=== PATIENT | female | born 1980 | race Caucasian/White ===

== ENCOUNTER 2019-11-27 12:30 | Emergency (ER) | payer MEDICARE, MEDICAID, SELFPAY ==
[2019-11-27 12:47] VITALS: BP 156/82; PULSE 63; RESP 16; TEMP 37.2; O2SAT 98
--- NOTE | 2019-11-27 13:28 | ED.URI ---
HPI - URI/Sore Throat General Chief Complaint: Upper Respiratory Infection Stated Complaint: sore throat/fever/fatigue Time Seen by Provider: 11/27/19 13:00 Source: patient and RN notes reviewed Mode of arrival: ambulatory Limitations: no limitations History of Present Illness HPI Narrative: Patient presents today complaining of 3-day history of scratchiness and redness to the throat with a baby cough. Denies congestion, rhinorrhea, postnasal drip. Denies known fever. She has been taking Sudafed and ibuprofen. Patient was at [facility] this morning for an appointment and states they told her to come in for flu and strep swabs. History of brainstem tumor, chemo and radiation 2 years ago. MD elicited complaint: sore throat Related Data Home Medications Medication Instructions Recorded Confirmed albuterol sulfate [Ventolin HFA] INHALATION 11/27/19 diazepam 11/27/19 furosemide 11/27/19 methylphenidate HCl 11/27/19 metoprolol succinate PO 11/27/19 omeprazole 11/27/19 ondansetron HCl 11/27/19 oxycodone-acetaminophen 11/27/19 sertraline mg 11/27/19 Allergies Allergy/AdvReac Type Severity Reaction Status Date / Time adhesive tape Allergy Mild Verified 08/31/18 11:40 sumatriptan Allergy Mild Unknown Verified 08/31/18 11:40 Review of Systems Review of Systems: Narrative: CONSTITUTIONAL: Denies body aches, fever, chills, or sweats. EYES: Denies visual changes, redness, or discharge. ENT: Denies rhinorrhea, congestion, or otalgia.+ Sore and scratchy throat CARDIOVASCULAR: Denies chest pain, palpitations, or edema. RESPIRATORY: Denies dyspnea. + Mild cough GASTROINTESTINAL: Denies abdominal pain, nausea, vomiting, or diarrhea. GENITOURINARY: Denies dysuria or hematuria. SKIN: Denies rash, itching, or wounds. MUSCULOSKELETAL: Denies back pain, joint pain, or myalgia. NEUROLOGIC: Denies headache, numbness, tingling, or weakness. PSYCH: Denies depression or anxiety. [facility] Past Medical History Medical History (Updated 11/27/19 @ 13:33 by Carrol Graff, [employer], BC) Brainstem tumor Comments At time of signature, I have reviewed and agree with nursing past medical, surgical, social and family history unless otherwise noted. Please see nursing chart for further information. There is no relevant family history pertinent to the presenting complaint Exam Narrative: Exam Narrative: GENERAL: Well-appearing, well-nourished, and in no acute distress. HEAD: Normocephalic, atraumatic. EYES: EOMI. No redness or drainage. Conjunctivae normal. ENT: Mucous membranes pink and moist. Nares clear. No rhinorrhea. TMs normal bilaterally. Throat mildly erythematous and edematous without exudate. Uvula midline. NECK: Normal AROM. Supple. No lymphadenopathy. CHEST: No respiratory distress. Clear to auscultation. HEART: Regular rate and rhythm. No murmur appreciated. Normal peripheral pulses. EXTREMITIES: Normal range of motion. No edema. SKIN: Warm, dry, no rash. NEURO: No focal deficits. Alert and oriented x3. Gait steady. PSYCH: Normal affect. No signs of depression or anxiety. Course Course Emergency Course: Patient's influenza swab and strep swab are negative today. Will provide patient with a paper prescription for amoxicillin to be started on 12/01/2019 if symptoms are not improving. She will be notified by telephone if strep culture is positive. Vital Signs Vital signs: Vital Signs Temperature 99.0 F 11/27/19 12:47 Pulse Rate 63 11/27/19 12:47 Respiratory Rate 16 11/27/19 12:47 Blood Pressure 156/82 H 11/27/19 12:47 Pulse Oximetry 98 11/27/19 12:47 Temperature 99.0 F 11/27/19 12:47 Pulse Rate 63 11/27/19 12:47 Respiratory Rate 16 11/27/19 12:47 Blood Pressure 156/82 H 11/27/19 12:47 Pulse Oximetry 98 11/27/19 12:47 Reviewed. Pt has been instructed to follow up with her PCP regarding her elevated blood pressure today. MDM - URI/Sore Throat Differential
== END 2019-11-27 13:38 | disposition home or self-care (01) ==
PROVIDERS: Emergency Provider Nurse Practitioner; PCP Family Medicine
DX: J02.9 Acute pharyngitis, unspecified (principal); I10 Essential (primary) hypertension; J45.909 Unspecified asthma, uncomplicated; K21.9 Gastro-esophageal reflux disease without esophagitis; F41.9 Anxiety disorder, unspecified; Z85.841 Personal history of malignant neoplasm of brain; Z92.21 Personal history of antineoplastic chemotherapy; Z92.3 Personal history of irradiation
CPT/HCPCS: 87081; 87804; 87880; 99213; G0463

== ENCOUNTER 2020-02-06 16:09 | Emergency (ER) | payer MEDICARE, MEDICAID, SELFPAY ==
--- NOTE | ~2020-02-06 | XR_ITS ---
EXAMINATION: XR foot LT min 3V EXAM DATE: 02/06/2020 16:36 INDICATION: Initial encounter following injury, with pain of the left foot, 2nd and 3rd toes. TECHNIQUE: Left foot dorsoplantar, lateral and oblique projections obtained and reviewed. Comparison is made to prior examination from 01/31/2013. FINDINGS: Left metatarsal bones unremarkable. There are no acute fractures or dislocations identifi ed. There is no subcutaneous gas. The soft tissue is unremarkable. There are no radiopaque foreig n bodies. Tiny posterior calcaneal spur. IMPRESSION: No acute osseous findings. Reviewed, dictated and finalized at location A. IMPRESSION: No acute osseous findings.
--- NOTE | 2020-02-06 16:15 | ED.GENADULT ---
HPI - General Adult General Chief complaint: Extremity Injury, Lower Stated complaint: left foot pain Time Seen by Provider: 02/06/20 16:15 Source: patient Mode of arrival: ambulatory Limitations: no limitations History of Present Illness HPI narrative: 39-year-old female [facility] of left foot pain x2 days. Patient states that 2 days ago she was cleaning out her cabinets and had her cast iron pot some pain sitting on the floor. Patient states she was going to kick 1 and The second toe and said that her second toe but all the way up. Patient states she is having pain at the base of the second and third toe. Patient states she does have decreased sensation to the left side of her foot especially the toe area anyway due to a past brain surgery. Patient states she does take Percocet and 800 mg ibuprofen for pain daily anyway which has helped with her pain. Patient states she has been trying to avoid walking on it and has been keeping it elevated. Related Data Home Medications Medication Instructions Recorded Confirmed albuterol sulfate [Ventolin HFA] 2 inh INHALATION Q4-6H PRN 11/27/19 02/06/20 diazepam 5 mg TID PRN 11/27/19 02/06/20 furosemide 20 mg DAILY PRN 11/27/19 02/06/20 omeprazole 20 mg DAILY 11/27/19 02/06/20 ondansetron HCl 8 mg Q8H PRN 11/27/19 02/06/20 oxycodone-acetaminophen 1 tablet Q4-6H PRN 11/27/19 02/06/20 sertraline 100 mg DAILY 11/27/19 02/06/20 ibuprofen 800 mg TID PRN 02/06/20 02/06/20 levetiracetam 500 mg PO DAILY 02/06/20 02/06/20 metoprolol succinate 100 mg PO DAILY 02/06/20 02/06/20 Allergies Allergy/AdvReac Type Severity Reaction Status Date / Time adhesive tape Allergy Mild Rash Verified 02/06/20 16:14 sumatriptan Allergy Mild Unknown Verified 02/06/20 16:14 Review of Systems Review of Systems: Narrative: CONSTITUTIONAL: Denies fever, chills, or sweats. EYES: Denies visual changes, redness, or discharge. ENT: Denies rhinorrhea, congestion, sore throat, or otalgia. CARDIOVASCULAR: Denies chest pain, palpitations, or edema. RESPIRATORY: Denies cough or dyspnea. GASTROINTESTINAL: Denies abdominal pain, nausea, vomiting, or diarrhea. GENITOURINARY: Denies dysuria or hematuria. SKIN: Denies rash or itching. MUSCULOSKELETAL: Denies back pain, joint pain, or myalgia. Positive left foot pain x2 days NEUROLOGIC: Denies headache, numbness, or weakness. PSYCHIATRIC: Denies anxiety or depression. [facility] Past Medical History Medical History (Updated 02/06/20 @ 16:59 by PEPE Curtis) Anxiety Asthma Brainstem tumor Depression Hypercholesterolemia Hypertension Seizures Surgical History Surgical History (Updated 02/06/20 @ 16:17 by PEPE Curtis) History of cholecystectomy History of tonsillectomy Social History Social History Gender identity (if verbalized by the patient): Female Comments At the time of my signature I agree with nursing past medical history, surgical, social, and family history. There is no relevant family history pertinent to the presenting complaint. Exam Narrative: Exam Narrative: GENERAL: Well-appearing, well-nourished, and in no acute distress. HEAD: Normocephalic, atraumatic. EYES: PERRLA and EOMI. ENT: Nares clear, no rhinorrhea or epistaxis. Mucous membranes moist. NECK: Supple. No lymphadenopathy CHEST: Clear to auscultation. No respiratory distress. HEART: Regular rate and rhythm. No murmur heard. Normal peripheral pulses. ABDOMEN: Soft, nontender, nondistended, normal active bowel sounds. EXTREMITIES: Patient able to bear weight and ambulate but has increased pain to the second and third digit on the left foot. No obvious surface trauma, very slight ecchymosis to the base of the second digit on the left toe, no erythema, lesions, ulcers or break in skin integrity. The L foot is without obvious asymmetry or deformity when compared to the R foot. No bony s
[2020-02-06 16:21] VITALS: BP 146/80; PULSE 68; RESP 16; TEMP 37.2; O2SAT 99
== END 2020-02-06 17:00 | disposition home or self-care (01) ==
PROVIDERS: Emergency Provider Nurse Practitioner Family; PCP Family Medicine
DX: S90.32XA Contusion of left foot, initial encounter (principal); I10 Essential (primary) hypertension; K21.9 Gastro-esophageal reflux disease without esophagitis; W22.8XXA Striking against or struck by other objects, initial encounter; Z85.841 Personal history of malignant neoplasm of brain
CPT/HCPCS: 73630; 99213; G0463

== ENCOUNTER 2022-12-25 16:47 | Emergency (ER) | payer OTHER, SELFPAY ==
--- NOTE | ~2022-12-25 | CT_ITS ---
EXAMINATION: CT facial bones w con DATE: 12/25/2022 21:00 INDICATION: Right facial swelling TECHNIQUE: Computed tomography (CT) of the facial bones and maxillofacial region was performed with 7 5 cc of Omnipaque 350 intravenous contrast. The dose-length product (DLP) was 625.06 mGy-cm. Automate d exposure control and iterative reconstruction technique were employed. COMPARISON: 06/30/2011 FINDINGS: There is moderate soft tissue swelling lateral to the body of the right mandible. No focal abscess is identified. Multiple dental caries are noted as are multiple periapical abscesses. There i s mild submandibular lymphadenopathy on the right, likely reactive. The airway is patent. Changes of right occipital craniotomy are noted. There is mild mucosal thickening of the paranasal sinuses. IMPRESSION: 1. Cellulitis lateral to the body of the right mandible without focal abscess. Reviewed, dictated and finalized at location F.
[2022-12-25 17:16] VITALS: BP 152/90; PULSE 80; RESP 16; TEMP 37.2; O2SAT 96
[2022-12-25 17:41] LABS: Basophils Absolute Auto 0.1 K/mm3 (0.0-0.1); Basophils Percent Auto 0.4 % (0.2-1.2); Eosinophils Absolute Auto 0.2 K/mm3 (0-0.3); Eosinophils Percent Auto 1.2 % (0-4.4); Hematocrit 48.5 % (37.0-47.0); Hemoglobin 16.3 g/dL (12.0-15.0); Immature Granulocyte Absolute 0.06 K/mm3 (0.00-0.031); Immature Granulocyte Percent A 0.4 % (0-0.5); Lymphocytes Absolute Auto 2.29 K/mm3 (0.9-3.2); Lymphocytes Percent Auto 13.4 % (18.3-44.2); Mean Corpuscular HGB Conc 33.6 g/dl (32-36); Mean Corpuscular Hemoglobin 31.4 pg (26-34); Mean Corpuscular Volume 93.4 fl (80-100); Mean Platelet Volume 9.5 fl (7.4-10.4); Monocytes Absolute Auto 0.9 K/mm3 (0.1-0.6); Monocytes Percent Auto 5.1 % (2.6-8.5); Neutrophils Absolute Auto 13.6 K/mm3 (1.3-6.7); Neutrophils Percent Auto 79.5 % (45.5-73.1); Platelet Count Result 311 k/mm3 (150-375); Red Blood Count 5.19 M/mm3 (4.2-5.4); Red Cell Distribution Width 13.6 % (11.5-14.5); White Blood Count 17.1 K/mm3 (4.5-10.0)
[2022-12-25 17:51] LABS: Alanine Aminotransferase 21 U/L (6-35); Albumin Level 4.5 g/dL (3.5-5.1); Alkaline Phosphatase 76 U/L (38-126); Anion Gap 9 mmol/L (8-16); Aspartate Amino Transferase 22 U/L (14-36); Bilirubin,Total 0.6 mg/dL (0.2-1.3); Blood Urea Nitrogen 11 mg/dL (7-17); Calcium 9.2 mg/dL (8.4-10.2); Carbon Dioxide 25 mmol/L (22-30); Chloride 105 mmol/L (98-107); Estimated CRCL calculation 136 ml/min; Estimated Glomerular Filt Rate > 60; Glucose 122 mg/dL (65-110); Potassium 4.1 mmol/L (3.4-5.0); Sodium 139 mmol/L (137-145)
[2022-12-25] MEDS: SODIUM CHLORIDE 0.9% IV 1,000 ML 999 ML IV CONT (20:32)
[2022-12-25] MEDS: PROCHLORPERAZINE EDISYLATE 10 MG/2 ML VIAL IV PUSH (20:32)
[2022-12-25] MEDS: MORPHINE SULFATE (*CRX) 4 MG/ML INJ IV PUSH (20:33)
[2022-12-25 21:00] LABS: Lactic Acid Reflex 1.2 mmol/L (0.7-2.0)
--- NOTE | 2022-12-25 21:07 | ED.GENADULT ---
HPI - General Adult General Chief complaint: Dental/Oral Stated complaint: SWOLLEN FACE RIGHT Time Seen by Provider: 12/25/22 19:45 History of Present Illness HPI narrative: Patient 42-year-old female who presents the emergency department with chief complaint of facial swelling. Patient reports that she has history of a brain tumor and has had radiation therapy done at [facility]. Patient reports that she noticed a small red bump on her chin and also has several teeth that have degraded. The patient reports she is scheduled to see an oral surgeon in the near future but reports that her face started swelling and has become exquisitely painful. Patient states she is worried as she has had degree she will have her teeth and mandible after receiving radiation therapy. Related Data Home Medications Medication Instructions Recorded Confirmed albuterol sulfate 90 mcg/actuation 2 inh inhalation Q4-6H PRN 11/27/19 02/06/20 aerosol inhaler (Ventolin HFA) Shortness Of Breath diazepam 5 mg tablet 5 mg TID PRN Anxiety 11/27/19 02/06/20 furosemide 20 mg tablet 20 mg DAILY PRN Weight Gain 11/27/19 02/06/20 omeprazole 20 mg capsule,delayed 20 mg DAILY 11/27/19 02/06/20 release ondansetron HCl 8 mg tablet 8 mg Q8H PRN Nausea 11/27/19 02/06/20 oxycodone-acetaminophen 10 mg-325 1 tablet Q4-6H PRN Pain 11/27/19 02/06/20 mg tablet sertraline 100 mg tablet 100 mg DAILY 11/27/19 02/06/20 ibuprofen 800 mg tablet 800 mg TID PRN Pain 02/06/20 02/06/20 levetiracetam 500 mg tablet 500 mg PO DAILY 02/06/20 02/06/20 metoprolol succinate 100 mg 100 mg PO DAILY 02/06/20 02/06/20 tablet,extended release 24 hr Allergies Allergy/AdvReac Type Severity Reaction Status Date / Time adhesive tape Allergy Mild Rash Verified 02/06/20 16:14 sumatriptan Allergy Mild Unknown Verified 02/06/20 16:14 Review of Systems Review of Systems: A 10 system review of systems was completed on the patient and is negative except for what is stated in the HPI. Nursing and ancillary documentation was reviewed. [facility] Past Medical History Medical History Anxiety Asthma Brainstem tumor Depression Hypercholesterolemia Hypertension Seizures Surgical History Surgical History History of cholecystectomy History of tonsillectomy Social History Social History Gender identity (if verbalized by the patient): Female Exam Narrative: GENERAL: Well-appearing, well-nourished, and in no acute distress. HEAD: Normocephalic, atraumatic. EYES: PERRLA and EOMI. ENT: Nares clear, no rhinorrhea or epistaxis. Mucous membranes moist. There are several carious teeth there is tenderness in the buccal mucosa of the right cheek and mandible external exam of the face there is erythema and tenderness of the right mandible area there is no crepitance there is no subcu emphysema there is no bronzing of the neck NECK: Supple. CHEST: Clear to auscultation. No respiratory distress. HEART: Regular rate and rhythm. No murmur heard. Normal peripheral pulses. ABDOMEN: Soft, nontender, nondistended, normal active bowel sounds. EXTREMITIES: Normal range of motion. No edema. SKIN: Warm, dry, no rash. NEURO: No focal deficits. Alert and oriented x3. PSYCH: Normal mood and affect. Course Vital Signs Vital signs: Vital Signs Temperature 37.2 C 12/25/22 17:16 Pulse Rate 80 12/25/22 17:16 Respiratory Rate 16 12/25/22 17:16 Blood Pressure 152/90 H 12/25/22 17:16 Pulse Oximetry 96 12/25/22 17:16 Oxygen Delivery Room Air 12/25/22 17:16 Temperature 37.2 C 12/25/22 17:16 Pulse Rate 80 12/25/22 17:16 Respiratory Rate 16 12/25/22 17:16 Blood Pressure 152/90 H 12/25/22 17:16 Pulse Oximetry 96 12/25/22 17:16 Oxygen Delivery Room Air 12/25/22 17:16 Medical Decision Ma
[2022-12-25] MEDS: AMPICILLIN SULB 3 GM/NS 100 ML 3 GM/100 ML VIAL IVPB (21:16)
== END 2022-12-25 22:34 | disposition home or self-care (01) ==
PROVIDERS: Emergency Medicine; Emergency Provider Emergency Medicine; PCP Family Medicine
DX: L03.211 Cellulitis of face (principal); K02.9 Dental caries, unspecified; J45.909 Unspecified asthma, uncomplicated; E78.00 Pure hypercholesterolemia, unspecified; I10 Essential (primary) hypertension; F41.9 Anxiety disorder, unspecified; F32.A Depression, unspecified
CPT/HCPCS: 36415; 70487; 80053; 83605; 85025; 87040; 87147; 87181; 87186; 96361; 96365; 96375; 99284; J0295; J0780; J2270; J7030; Q9967

== ENCOUNTER 2024-01-04 11:27 | Outpatient (CLI) | payer MEDICARE, MEDICAID, SELFPAY ==
--- NOTE | 2024-01-04 11:44 | ECG_ITS ---
SEE SCANNED COPY FOR CONFIRMED REPORT MTDD
[2024-01-04 12:19] LABS: Alanine Aminotransferase 19 U/L (6-35); Albumin Level 4.3 g/dL (3.5-5.1); Alkaline Phosphatase 69 U/L (38-126); Anion Gap 4 mmol/L (4-12); Aspartate Amino Transferase 22 U/L (14-36); Bilirubin,Total 0.4 mg/dL (0.2-1.3); Blood Urea Nitrogen 11 mg/dL (7-17); Calcium 9.1 mg/dL (8.4-10.2); Carbon Dioxide 26 mmol/L (22-30); Chloride 106 mmol/L (98-107); Estimated Glomerular Filt Rate > 60; Glucose 122 mg/dL (65-110); Potassium 4.2 mmol/L (3.4-5.0); Sodium 136 mmol/L (137-145)
== END 2024-01-04 11:28 | disposition home or self-care (01) ==
LOC: ANHSURGERY 11:32
PROVIDERS: PCP Family Medicine; Visit Provider Obstetrics & Gynecology
DX: N92.0 Excessive and frequent menstruation with regular cycle (principal); I10 Essential (primary) hypertension; Z01.818 Encounter for other preprocedural examination
CPT/HCPCS: 36415; 80053; 86850; 86900; 86901; 93005

== ENCOUNTER 2024-01-11 00:23 | Day surgery (SDC) | payer MEDICARE, MEDICAID, SELFPAY ==
[2024-01-04 10:57] VITALS: BMI 45.8
--- NOTE | 2024-01-04 11:08 | PC.NURSE ---
Report to the Outpatient Waiting Room, entrance under the green pavilion located off [facility], at time 6:00 on date 01/11/24. Planned Procedure Time: 7:30. Time changes happen often and if your time is changed the preop area will call you the afternoon before. - You and your visitor will be asked to self-screen and do not enter if you have any COVID symptoms. - A mask is optional within the hospital at this time. Patients may have clear liquids (water, carbonated beverages, clear teas, apple juice) until 3 hours prior to surgery (4:30) with a maximum of 20 ounces. - No food from midnight until time of surgery Take the following medications with a SIP of water the morning of surgery: METOPROLOL, PAIN PILL IF NEEDED, BRING INHALER DO NOT STOP ANY OF YOUR OTHER PRESCRIPTION MEDICATIONS PRIOR TO SURGERY ?EXCEPT THE FOLLOWING Medications to discontinue per physician: N/A Date to take last dose: N/A Please no make-up, nail pashto, hairspray, perfume, deodorant, or body powder the day of surgery. No jewelry (including any body piercings) or valuables the day of surgery, leave them at home. Please take a shower or bath the night before, or the morning of, surgery with an antibacterial soap. Wear comfortable, loose fitting clothing. - Jewelry must be removed prior to entering the operating room. Rings and piercings that are not removed may be cut off. - The hospital will not accept responsibility for valuables. - Please leave all valuables, including medications, at home the day of surgery. If you are going home after surgery, a licensed day haul or farm charter bus driver must drive you home. - NO public transportation without another adult if you receive anesthesia. - We recommend that an adult stay with you for 24 hours following discharge. - We also recommend that you do not drive, make important decision, drink alcoholic beverages, or take any drugs that were not prescribed by your health care provider for at least 24 hours after your discharge time. Follow any additional instructions given to you from your surgeon. If you or anyone in your household have experienced Covid symptoms in the past week, please notify your surgeon or the nurse liaison at the phone number below for possible testing. Telephone instructions given to PT Tata SANCHEZ and asked if any additional questions and then verbalized understanding. Patient advised to call surgeon office or pre surgery nurse liaison [phone] if any additional questions.
[2024-01-11] VITALS (13 sets, daily range): BP systolic 118–170; BP diastolic 73–88; PULSE 71–91; RESP 12–18; TEMP 36.1–36.9; O2SAT 92–97; BMI 44.4
--- NOTE | 2024-01-11 07:10 | WPDANESEPPF ---
Anes - Initial Pre Proc Eval Procedure: Operation Date: 01/11/24 07:30 Proposed Procedures p Total Laparoscopic Hysterectomy with Bilateral Salpingectomy - Solomon Shah MD Date/Time: 01/11/24 07:10 Surgeon: Solomon Shah MD Pre Op Diagnosis: Menorrhagia Patient Data Age: 43 Gender: F Height: 1.68 m Weight: 128.85 kg Allergies Allergy/AdvReac Type Severity Reaction Status Date / Time adhesive tape Allergy Mild Rash Verified 01/04/24 10:53 sumatriptan Allergy Mild Unknown Verified 01/04/24 10:53 Home Medications Medication Instructions Recorded Confirmed Type albuterol sulfate 90 mcg/actuation 2 inh inhalation Q4-6H PRN 11/27/19 01/04/24 History aerosol inhaler (Ventolin HFA) Shortness Of Breath diazepam 5 mg tablet 10 mg PO HS 11/27/19 01/04/24 History furosemide 20 mg tablet 40 mg PO DAILY 11/27/19 01/04/24 History omeprazole 20 mg capsule,delayed 20 mg PO DAILY 11/27/19 01/04/24 History release ondansetron HCl 8 mg tablet 8 mg PO Q8H PRN Nausea 11/27/19 01/04/24 History sertraline 100 mg tablet 100 mg PO HS 11/27/19 01/04/24 History levetiracetam 500 mg tablet 3,000 mg PO HS 02/06/20 01/04/24 History metoprolol succinate 100 mg 100 mg PO HS 02/06/20 01/04/24 History tablet,extended release 24 hr atorvastatin 20 mg tablet 20 mg PO DAILY 01/04/24 01/04/24 History metoprolol succinate 200 mg 200 mg PO DAILY 01/04/24 01/04/24 History tablet,extended release 24 hr naloxegol 25 mg tablet (Movantik) 25 mg PO DAILY 01/04/24 01/04/24 History oxycodone-acetaminophen 10 mg-325 1 tablet PO Q4-6H PRN Pain 01/04/24 01/04/24 History mg tablet promethazine 50 mg tablet 20 mg PO Q6H PRN Nausea 01/04/24 01/04/24 History Patient hx anesthesia problems: none Family hx anesthesia problems: none Results Review: All pre-operative results and documents have been reviewed as part of the pre-operative evaluation. [facility] Past Medical History Medical History Anxiety Asthma Brainstem tumor Depression Hypercholesterolemia Hypertension Seizures Surgical History Surgical History History of cholecystectomy History of tonsillectomy Social History Social History Smoking packs per day: 1 Smoking cigarettes per day: 20.0 Years smoked: 27 Smoking pack-years: 27.00 Smoking status: Current every day smoker Tobacco type: cigarettes Substance use: current Substance use type: marijuana Living arrangements: with family Additional living arrangements comments: SON Gender identity (if verbalized by the patient): Female Spiritual care concerns: No Anes - Eval Final PreProcedure Day of Procedure 01/11/24 07:10 Patient weight: morbidly obese Heart: regular rate and rhythm Lungs: clear to auscultation Airway: Mallampati scale class III Neurological: alert and oriented Last oral intake: >/= 8 hours ASA classification: IV Emergent: no Anesthetic plan: proceed Anesthesia type and monitoring: general ETT and standard monitoring Results Review: All pre-operative results and documents have been reviewed as part of the pre-operative evaluation. Informed Consent: The patient's anesthetic plan and its attendant risks and benefits were discussed with the patient/family/POA. Questions were solicited and answers provided to the satisfaction of the patient/family/POA.
--- NOTE | 2024-01-11 07:13 | WPDHPUPDATE1 ---
History and Physical Update Update Date/Time: 01/11/24 07:13 History and Physical has been reviewed, including an updated exam of the patient. There are NO changes in the patient's condition. Risks, benefits, and alternatives have been discussed and questions answered. Patient agrees to proceed with procedure.
[2024-01-11] MEDS: LACTATED RINGERS 1,000 ML 30 ML IV CONT ×2 (07:15→10:58)
[2024-01-11] MEDS: KETOROLAC 15 MG/ML VIAL (*BKC) IV PUSH (07:15)
[2024-01-11] MEDS: ACETAMINOPHEN 500 MG TABLET 1000 MG PO (07:15)
[2024-01-11] MEDS: ceFAZolin SODIUM 1 GM VIAL (07:34)
[2024-01-11] MEDS: ceFAZolin 3 GM/D5W 100 ML 100 ML IVPB (07:48)
--- NOTE | 2024-01-11 11:03 | W.PM.PROC2 ---
Procedure Note - Detailed Date of Procedure 01/11/24 Pre-op Diagnosis Menorrhagia Post-op Diagnosis Same Procedure Performed Total laparoscopic hysterectomy. Surgeon Solomon Shah MD Anesthesia General Description of Procedure This patient was taken to the operating room. She was prepped and draped in the dorsal lithotomy position after induction of general anesthesia. The uterine manipulator and Tania cup were placed. This was done with a speculum and tenaculum. The speculum was placed. The cervix was grasped with a tenaculum. The stay sutures were placed at 3 and 9:00 a.m.. The stay sutures of 0 Vicryl were brought through the appropriately sized Tania cup. The tip of the SOTO manipulator was placed in the intrauterine cavity. The cup was slid into place around the cervix and into the fornices. It was locked into place. The sutures were then wrapped around the handle and tied under tension. A 5 mm skin incision was made in the left upper quadrant the abdomen. A 5 mm trocar was inserted into the intrauterine cavity under direct visualization of the scope. Pneumoperitoneum was achieved. A left lower quadrant 11 mm incision was made with scalpel. An 11 mm trocar was inserted into the anterior abdominal cavity under direct visualization the scope. A 5 mm infraumbilical incision was made with a scalpel and a 5 mm trocar was inserted the intra-abdominal cavity under direct visualization of the scope. Bilateral ureteral lysis was performed. This was done from the pelvic brim down to the uterine artery. This was done with careful dissection using sharp and blunt dissection. The fallopian tubes were removed bilaterally. The mesosalpinx around the fallopian tubes were cauterized transected with LigaSure cautery. This was done in a bilateral fashion from the ovary to the uterine cornua. The fallopian tube was transected at the uterine cornu and amputated bilaterally. The tube was taken out the left lower quadrant trocar site. In a stepwise fashion along the lateral aspects of the uterus the round ligament and broad ligaments were cauterized transected down to the level of the uterine arteries. A bladder flap was created in the bladder was moved distally to the end of the cervix and over the Tania cup. The bilateral uterine arteries were cauterized and transected. Colpotomy was then performed. In a circumferential fashion the vagina was transected using unipolar cautery. The incision was made down on the Tania cup. when the colpotomy was completed, the uterus and cervix were taken out through the vagina. A pneumo occluder was placed in the vagina. The vaginal cuff was closed with a 0 V lock suture in a running fashion. The pelvis was irrigated with copious amounts antibiotic irrigation. The ureters were again examined and found to be intact and flowing freely under the uterine arteries into the bladder. The bladder was intact. It was examined directly. Cystoscopy was performed after administration of methylene blue. The cystoscope was inserted. Bladder was distended with fluid. The ureteric meatus was observed bilaterally. Fluid was not seen to egress from the left ureter. The vaginal cuff suture was revised. The left lateral aspect of the suture was removed and a new suture was placed incorporating the original suture. This suture was strictly of the vagina no surrounding tissue. Blue fluid was Then seen to egress bilaterally from the ureter meatus.. The bladder was drained and the cystoscope was withdrawn. For consult removed view skin was closed was septic and 4 Monocryl. Skin was covered with The vagina was irrigated with Betadine solution after removal of the Pneumo occluder. The patient was taken to recovery room. She was stable condition. Sponge lap and needle counts were correct x2. Drains Yes Packing No Pathology Yes Complications No immediate complications Condition Stable Disposition Floor
--- NOTE | 2024-01-11 12:00 | PC.NURSE ---
This patient, Bruna Caro, was received from PACU on 01/11/24 at 1200. Patient/family oriented to unit policies and routines.
[2024-01-11] MEDS: ONDANSETRON INJ 4 MG/2 ML VIAL IV PUSH ×2 (12:22→18:31)
[2024-01-11] MEDS: DEXTROSE 5%/0.45% SOD CHL 1,000 ML 125 ML IV CONT (12:23)
[2024-01-11] MEDS: FUROSEMIDE 40 MG TABLET PO (13:35)
[2024-01-11] MEDS: SIMETHICONE 80 MG TAB.CHEW PO ×2 (13:35→16:51)
[2024-01-11] MEDS: oxyCODONE/ACETAMINOPHEN (*CRX) 10-325 MG TABLET 1 TAB PO ×2 (13:36→19:03)
[2024-01-11] MEDS: NICOTINE (*PBKC) 14 MG PATCH 1 PATCH TRANSDERM (14:55)
[2024-01-11] MEDS: METOPROLOL SUCCINATE EXT REL 100 MG TABCR PO (16:45)
[2024-01-11] MEDS: IBUPROFEN 600 MG TABLET PO (16:52)
--- NOTE | 2024-01-11 20:30 | PC.NURSE ---
2030- Called to room for assistance at this time, upon entering room patient standing in doorway requesting a wheelchair. I asked the patient why a wheelchair was needed and what I could do to assist her at this time. Patient replied that she is a pack a day smoker and hasn't been able to smoke today and just received some bad news and feels like she needs to go outside to smoke. I requested for the patient to sit down so we could discuss a plan of care for her at this time. Patient agreed to sit and take some deep breaths to relax and calm. I reminded patient that she has a nicotine patch on at this time and that she cannot leave the building with her IV in place. Patient stated I noticed the fire alarms and thought about smoking out the window but didn't want to sneak I reminded patient at this time that there can be no smoking inside the hospital. I offered the patient some gum to chew as well as a snack to take her mind off things. Evening meds including Diazepam and Zoloft due at 2100 and discussed with patient that I will bring those in at that time. Patient agreed to get back into bed and attempt to watch television and rest and that she believes her nighttime medications will help.
[2024-01-11] MEDS: SERTRALINE HCL 50 MG TABLET 100 MG PO (21:33)
[2024-01-11] MEDS: diazePAM (*CRX) 5 MG TABLET 10 MG PO (21:33)
[2024-01-11] MEDS: levETIRAcetam 500 MG TABLET 1500 MG PO (21:33)
--- NOTE | 2024-01-11 21:33 | PC.NURSE ---
2132- Evening meds given, see MAR. Patient is in bed relaxed and resting. Educated patient on need to call out for assistance when amulating to the bathroom due to patient being on seizure precautions and taking fall risk alert medications. Patient verbalized understanding.
--- NOTE | 2024-01-12 00:23 | PC.NURSE ---
2300- Hallway outside patients room smelled strongly of smoke. Entered room and asked patient if she had been smoking and reminded that she can't smoke in the hospital due to safety and fire hazard. Patient stated that she did have a cigarette out but that she did not light it. Overwhelming smoke smell present in the room. Security called by charge nurse at this time. Light turned on and cigarette in water bottle found at bedside that had been lit. Patient denies lighting cigarette again to staff. Security talks with patient to further explain that smoking is prohibited in the hospital. Patient verbalizes understanding.
[2024-01-12 00:45] VITALS: BP 150/69; PULSE 73; RESP 18; TEMP 37.1; O2SAT 94
[2024-01-12] MEDS: oxyCODONE/ACETAMINOPHEN (*CRX) 10-325 MG TABLET 1 TAB PO ×2 (00:47→08:09)
[2024-01-12] MEDS: ONDANSETRON INJ 4 MG/2 ML VIAL IV PUSH ×2 (00:47→08:10)
[2024-01-12 05:30] VITALS: BP 142/68; PULSE 75; RESP 18; TEMP 36.6; O2SAT 97
[2024-01-12] MEDS: SIMETHICONE 80 MG TAB.CHEW PO (08:08)
[2024-01-12] MEDS: ENOXAPARIN 40 MG/0.4 ML SYRINGE SUB-Q (08:08)
[2024-01-12] MEDS: levETIRAcetam 500 MG TABLET 1500 MG PO (08:08)
[2024-01-12] MEDS: ATORVASTATIN 20 MG TABLET PO (08:09)
[2024-01-12] MEDS: FUROSEMIDE 40 MG TABLET PO (08:09)
[2024-01-12] MEDS: PANTOPRAZOLE 40 MG TABLET PO (08:09)
[2024-01-12 08:10] VITALS: PULSE 76
[2024-01-12] MEDS: METOPROLOL SUCCINATE EXT REL 100 MG TABCR 200 MG PO (08:10)
[2024-01-12 08:34] VITALS: BP 152/79; PULSE 76; RESP 16; TEMP 36.4; O2SAT 98
--- NOTE | 2024-01-12 09:13 | WPDANESPN ---
Anes - Prog Note Post-Op Date/Time: 01/12/24 09:13 Cardiovascular status: normal Respiratory status: normal Airway patency: baseline Mental status: baseline Post-Op hydration status: normal Vital Signs: Last Vital Signs Temp 36.4 C 01/12/24 08:34 Pulse 76 01/12/24 08:34 Resp 16 01/12/24 08:34 BP 152/79 H 01/12/24 08:34 Pulse Ox 98 01/12/24 08:34 O2 Del Method Room Air 01/12/24 08:34 O2 Flow Rate 2 01/11/24 13:30 Pain Score (VAS): 0 I/O: Intake & Output 01/11/24 01/12/24 01/12/24 23:59 07:59 15:59 Intake Total 1650 240 Output Total 1150 1000 Balance 500 -1000 240 Post-procedural complaints: none Patient Feedback: Patient satisfied with anesthetic care.
--- NOTE | 2024-01-12 10:21 | PM.GYNPNOP ---
[employer] - A/P Postoperative Procedures: Procedures Operation Date: 01/11/24 07:30 Actual Procedure Side Surgeon p Total Laparoscopic Hysterectomy with Bilateral Salpingectomy with cystoscopy Bilateral Solomon Shah MD Postoperative day: 1 Postoperative status: doing well Postoperative plan: see orders Time Spent With Patient Time: Total time spent is greater than 50% in coordination of care (as documented) at patient's floor/unit and/or counseling patient: Time with patient: less than 15 minutes [employer]- PN:Subj Post-Op Subjective Date/time seen: 01/12/24 10:21 Subjective: patient reports feeling better, patient has no complaints and pain is well controlled Exam Const: General: healthy appearing, comfortable and no acute distress Resp: Auscultation: clear to auscultation bilaterally, no rales, no rhonchi and no wheezes Cardio: Rate: regular rate Heart sounds: no click, no murmurs and no rubs GI: Inspection: non-distended Auscultation: normal bowel sounds Extrem: General: normal to inspection, no pedal edema and no calf tenderness [employer] - PN: Obj Data Vital Signs Vital Signs: Vital Signs - 24 hr 01/11/24 10:58 01/11/24 11:10 01/11/24 11:25 Temperature 97.2 F L Pulse Rate 83 80 75 Respiratory Rate 12 16 14 Blood Pressure 145/78 H 151/85 H 153/87 H Pulse Oximetry 94 95 92 Oxygen Delivery Simple Face Mask Simple Face Mask Room Air Oxygen Flow Rate 8 8 01/11/24 11:40 01/11/24 11:52 01/11/24 12:10 Temperature 97.5 F L Pulse Rate 74 72 71 Respiratory Rate 16 18 16 Blood Pressure 154/84 H 159/88 H 149/74 H Pulse Oximetry 93 95 92 Oxygen Delivery Nasal Cannula Nasal Cannula Oxygen Flow Rate 2 2 01/11/24 13:30 01/11/24 13:30 01/11/24 12:10 Temperature Pulse Rate Respiratory Rate Blood Pressure Pulse Oximetry 94 94 92 Oxygen Delivery Nasal Cannula Nasal Cannula Oxygen Flow Rate 2 2 01/11/24 16:45 01/11/24 16:40 01/11/24 19:21 Temperature 97.0 F L Pulse Rate 76 75 Respiratory Rate 16 Blood Pressure 158/73 H 170/79 H Pulse Oximetry 96 Oxygen Delivery Oxygen Flow Rate 01/11/24 20:00 01/11/24 19:03 01/11/24 20:00 Temperature 98.2 F Pulse Rate 91 80 Respiratory Rate 18 Blood Pressure 148/75 H 170/79 H 148/75 H Pulse Oximetry 95 Oxygen Delivery Oxygen Flow Rate 01/12/24 00:45 01/12/24 05:30 01/12/24 08:10 Temperature 98.7 F 98 F Pulse Rate 73 75 76 Respiratory Rate 18 18 Blood Pressure 150/69 H 142/68 H Pulse Oximetry 94 97 Oxygen Delivery Oxygen Flow Rate 01/12/24 08:34 01/12/24 08:34 Temperature 97.6 F Pulse Rate 76 Respiratory Rate 16 Blood Pressure 152/79 H Pulse Oximetry 98 Oxygen Delivery Room Air Oxygen Flow Rate Intake/Output Intake/Output: Intake & Output 01/09/24 01/10/24 01/11/24 01/12/24 23:59 23:59 23:59 23:59 Intake Total 1750 240 Output Total 1200 1000 Balance 550 -760 Meds/Results Medications: Active Medications Generic Name Dose Route Start Last Admin Trade Name Freq PRN Reason Stop Dose Admin Albuterol 2 puff 01/11/24 11:53 Albuterol Sulfate (*Sp) Aerosol 1 Puff INHALATION Q4-6H PRN Shortness Of Breath Atorvastatin Calcium 20 mg 01/12/24 09:00 01/12/24 08:09 Atorvastatin 20 Mg Tablet PO 20 mg DAILY BRISEYDA Administration Diazepam 10 mg 01/11/24 21:00 01/11/24 21:33 Diazepam (*Crx) 5 Mg Tablet PO 10 mg HS BRISEYDA Administration Enoxaparin Sodium 40 mg 01/12/24 09:00 01/12/24 08:08 Enoxaparin 40 Mg/0.4 Ml Syringe SUB-Q 40 mg DAILY BRISEYDA Administration Furosemide 40 mg 01/11/24 12:05 01/12/24 08:09 Furosemide 40 Mg Tablet PO 40 mg DAILY BRISEYDA Administration Dextrose/Sodium Chloride 1,000 mls @ 125 mls/hr 01/11/24 11:53 01/11/24 22:14 Dextrose 5% Sodium Chloride 0.45% IV CONT Not Given .Q8H BRISEYDA Ibuprofen 600 mg 01/11/24 11:53 01/11/24 16:52 Ibuprofen 600 Mg Tablet PO 600 mg Q6H PRN
== END 2024-01-12 10:35 | disposition home or self-care (01) ==
LOC: ANHSURGERY 06:21 → ANHOB2 11:56
PROVIDERS: PCP Family Medicine; Visit Provider Obstetrics & Gynecology
PROC: 0UT9FZZ Resection of Uterus, Via Natural or Artificial Opening With Percutaneous Endoscopic Assistance (ICD-10-PCS; CPT 58571; principal; 2024-01-11 07:30)
DX: N92.0 Excessive and frequent menstruation with regular cycle (principal); N87.9 Dysplasia of cervix uteri, unspecified; N83.8 Other noninflammatory disorders of ovary, fallopian tube and broad ligament; Z79.51 Long term (current) use of inhaled steroids; I10 Essential (primary) hypertension; G40.909 Epilepsy, unspecified, not intractable, without status epilepticus; E78.00 Pure hypercholesterolemia, unspecified; J45.909 Unspecified asthma, uncomplicated; F41.9 Anxiety disorder, unspecified; F32.A Depression, unspecified; F17.210 Nicotine dependence, cigarettes, uncomplicated; E66.01 Morbid (severe) obesity due to excess calories; F12.90 Cannabis use, unspecified, uncomplicated; Z68.41 Body mass index [BMI] 40.0-44.9, adult
CPT/HCPCS: 58571; 88307; 99199; A9270; J0330; J0690; J1100; J1170; J1596; J1650; J1885; J2250; J2405; J2704; J3010; J7030; J7120; Q9968

== ENCOUNTER 2024-08-31 12:49 | Inpatient (IN) | payer MEDICARE, MEDICAID, SELFPAY ==
[2024-08-31] VITALS (12 sets, daily range): BP systolic 153–182; BP diastolic 84–94; PULSE 78–102; RESP 18–22; TEMP 36.1–36.9; O2SAT 87–96; BMI 44.4
--- NOTE | ~2024-08-31 | CT_ITS ---
EXAMINATION: CTA chest PE protocol DATE: 08/31/2024 23:10 INDICATION: Acute hypoxia TECHNIQUE: Computed tomography angiography (CTA) of the chest was performed with 100 mL Omnipaque-350 intravenous contrast timed to evaluate the pulmonary arteries. Coronal maximum intensity projection 3D-reconstructions were created by the technologist. Automated exposure control and iterative reconst ruction technique were employed. The dose-length product was 1099.04 mGy-cm. COMPARISON: CT abdomen and pelvis 04/05/2017 FINDINGS: There are scattered groundglass opacities in all lobes. There are 7 mm, 6 mm, and 4 mm nodu les in right lower lobe. No pleural effusion. The heart size is normal. No pericardial effusion. Ther e is no pulmonary embolus. There is mild right hilar lymphadenopathy. There are changes of cholecyste ctomy. There is mild cervical and thoracic spondylosis. IMPRESSION: 1. No pulmonary embolus. Sensitivity is mildly decreased by obesity and suboptimal contrast opacifica tion. 2. Diffuse lung disease, likely atypical pneumonia. 3. Right lower lobe nodules measuring up to 7 mm, probably benign. Noncontrast low-dose chest CT is r ecommended in 6-12 months. 4. Mild right hilar lymphadenopathy, likely reactive. Reviewed, dictated and finalized at location A. ND PAN FINISHER IMPRESSION: 1. No pulmonary embolus. Sensitivity is mildly decreased by obesity and subopti mal contrast opacification. 2. Diffuse lung disease, likely atypical pneumonia. 3. Right lower lobe nodules measuring up to 7 mm, probably benign. Noncontrast low-dose chest CT is recommended in 6-12 months. 4. Mild right hilar lymphadenopathy, likely reactive.
--- NOTE | ~2024-08-31 | XR_ITS ---
XR chest 2V DATE: 09/03/2024 13:50 INDICATION: Pneumonia follow-up TECHNIQUE: PA and lateral chest COMPARISON: 08/31/2024 CTA chest 08/31/2024 PA and lateral chest FINDINGS: Scattered bilateral patchy infiltrates, more prominent in the lower lung zones, mildly impr montse since 08/31/2024. Heart size is within normal range. No pulmonary vascular congestion or pneumothorax. IMPRESSION: Patchy bilateral mild pulmonary infiltrate, more prominent in the lower lung zones, mildl y improved since 08/31/2024 Reviewed, dictated and finalized at location A. GER AUTOMOTIVE IMPRESSION: Patchy bilateral mild pulmonary infiltrate, more prominent in the l ower lung zones, mildly improved since 08/31/2024
--- NOTE | ~2024-08-31 | XR_ITS ---
EXAMINATION: XR chest 2V DATE: 08/31/2024 15:01 INDICATION: Shortness of breath and cough. TECHNIQUE: Frontal and lateral views of the chest were obtained. COMPARISON: CT abdomen and pelvis 04/05/2017 FINDINGS: There are mild airspace opacities in the lower lung zones. No pleural effusion or pneumotho rax. The heart size is normal. Surgical clips in the right upper quadrant are likely from cholecystec bartolo. IMPRESSION: 1. Mild airspace opacities in the lower lung zones, consistent with atelectasis versus pneumonia. Reviewed, dictated and finalized at location A. AND STILL OPERATOR
[2024-08-31] MEDS: IPRATROPIUM BR 0.02% INH SOLN 0.5 MG/2.5 ML VIAL 1 MG INHALATION (13:48)
[2024-08-31] MEDS: ALBUTEROL SULFATE NEB 2.5 MG/3 ML INH 10 MG INHALATION (13:48)
[2024-08-31 14:56] LABS: Basophils Absolute Auto 0.1 K/mm3 (0.0-0.1); Basophils Percent Auto 0.4 % (0.2-1.2); Eosinophils Absolute Auto 0.3 K/mm3 (0-0.3); Eosinophils Percent Auto 1.6 % (0-4.4); Hematocrit 46.4 % (37.0-47.0); Hemoglobin 15.6 g/dL (12.0-15.0); Immature Granulocyte Absolute 0.05 K/mm3 (0.00-0.031); Immature Granulocyte Percent A 0.3 % (0-0.5); Lymphocytes Absolute Auto 1.14 K/mm3 (0.9-3.2); Lymphocytes Percent Auto 7.2 % (18.3-44.2); Mean Corpuscular HGB Conc 33.6 g/dl (32-36); Mean Corpuscular Hemoglobin 30.5 pg (26-34); Mean Corpuscular Volume 90.6 fl (80-100); Monocytes Absolute Auto 1.2 K/mm3 (0.1-0.6); Monocytes Percent Auto 7.2 % (2.6-8.5); Neutrophils Absolute Auto 13.2 K/mm3 (1.3-6.7); Neutrophils Percent Auto 83.3 % (45.5-73.1); Platelet Count Result 265 k/mm3 (150-375); Potassium 4.2 mmol/L (3.4-5.0); Red Blood Count 5.12 M/mm3 (4.2-5.4); Red Cell Distribution Width 13.2 % (11.5-14.5); White Blood Count 15.9 K/mm3 (4.5-10.0)
[2024-08-31 14:57] LABS: Alanine Aminotransferase 18 U/L (6-35); Albumin Level 4.5 g/dL (3.5-5.1); Alkaline Phosphatase 78 U/L (38-126); Anion Gap 5 mmol/L (4-12); Aspartate Amino Transferase 31 U/L (14-36); Bilirubin,Total 0.9 mg/dL (0.2-1.3); Blood Urea Nitrogen 6 mg/dL (7-17); Calcium 9.2 mg/dL (8.4-10.2); Carbon Dioxide 25 mmol/L (22-30); Chloride 103 mmol/L (98-107); Estimated CRCL calculation 162 ml/min; Estimated Glomerular Filt Rate > 60; Glucose 107 mg/dL (65-110); Sodium 133 mmol/L (137-145)
--- NOTE | 2024-08-31 15:05 | ED.SOB ---
HPI - SOB/Dyspnea General Chief Complaint: Shortness of Breath/Dyspnea Stated Complaint: dyspnea Time Seen by Provider: 08/31/24 13:22 History of Present Illness HPI Narrative: Patient is a 43-year-old female who presents ER with shortness of breath. Worsening over last week. Associated with cough. Subjective fevers and chills. she is without abdominal pain. No known sick contacts. Related Data Home Medications ?Medication ?Instructions ?Recorded ?Confirmed ?Last Taken ?Type albuterol sulfate 90 mcg/actuation 2 inh inhalation Q4-6H PRN 11/27/19 08/31/24 08/31/24 History aerosol inhaler (Ventolin HFA) Shortness Of Breath diazepam 5 mg tablet 10 mg PO HS 11/27/19 08/31/24 08/30/24 History furosemide 20 mg tablet 40 mg PO DAILY 11/27/19 08/31/24 08/30/24 History omeprazole 20 mg capsule,delayed 20 mg PO DAILY 11/27/19 08/31/24 08/30/24 History release ondansetron HCl 8 mg tablet 8 mg PO Q8H PRN Nausea 11/27/19 08/31/24 08/30/24 History sertraline 100 mg tablet 100 mg PO HS 11/27/19 08/31/24 08/30/24 History levetiracetam 500 mg tablet 3,000 mg PO HS 02/06/20 08/31/24 08/30/24 History metoprolol succinate 100 mg 100 mg PO HS 02/06/20 08/31/24 08/30/24 History tablet,extended release 24 hr atorvastatin 20 mg tablet 20 mg PO DAILY 01/04/24 08/31/24 08/30/24 History metoprolol succinate 200 mg 200 mg PO DAILY 01/04/24 08/31/24 08/31/24 History tablet,extended release 24 hr naloxegol 25 mg tablet (Movantik) 25 mg PO DAILY 01/04/24 08/31/24 08/30/24 History oxycodone-acetaminophen 10 mg-325 1 tablet PO Q4-6H PRN Pain 01/04/24 08/31/24 08/31/24 History mg tablet promethazine 50 mg tablet 20 mg PO Q6H PRN Nausea 01/04/24 08/31/24 08/31/24 History Allergies Allergy/AdvReac Type Severity Reaction Status Date / Time adhesive tape Allergy Mild Rash Verified 01/11/24 07:29 sumatriptan Allergy Mild Unknown Verified 01/11/24 07:29 Review of Systems Review of Systems: All systems reviewed & are unremarkable except as noted in HPI and below Constitutional: Constitutional: Denies chills, Reports fatigue and Reports fever(s) ENT: Reports system reviewed and no additional complaints, except as documented Cardiovascular: Cardiovascular: Reports no additional cardiovascular complaints Respiratory: Respiratory: Reports cough, Reports dyspnea and Reports wheezing Gastrointestinal: Gastrointestinal: Reports no additional gastrointestinal complaints [facility] Past Medical History Medical History Anxiety Asthma Brainstem tumor Depression Hypercholesterolemia Hypertension Seizures Surgical History Surgical History History of cholecystectomy History of tonsillectomy Social History Social History Smoking packs per day: 1 Smoking cigarettes per day: 20.0 Years smoked: 27 Smoking pack-years: 27.00 Smoking status: Current every day smoker Tobacco type: cigarettes Substance use: current Substance use type: marijuana Living arrangements: with family Additional living arrangements comments: SON Gender identity (if verbalized by the patient): Female Spiritual care concerns: No Exam Narrative: GENERAL: Well-appearing, well-nourished, and in no acute distress. HEAD: Normocephalic, atraumatic. ENT: Mucous membranes moist. CHEST: Diminished bilaterally, wheezing right apex. No respiratory distress. HEART: Regular rate and rhythm. Normal peripheral pulses. ABDOMEN: Soft, nontender, nondistended. EXTREMITIES: Normal range of motion. No edema. SKIN: Warm, dry, no rash. NEURO: Alert and oriented x3. PSYCH: Normal mood and affect. Course Course Emergency Course: persistent hypoxia and increased wheezing after nebulizer treatment. Patient with pneumonia. IV antibiotics ordered / given. Admit to hospitalist service. Vital Signs Vital signs: Vital Signs Temperature 98.4 F 08/31/24 13:07 Pulse Rate 102 H 08/31/24 13:07 Respiratory Rate 22 H 08/31/24 13:07 Blood Pressure 153/87 H 08/31/24 13:07 Pulse Oximetry 87 L 08/31/24 13:07 Temperature 98.4 F 08/31/24 13:07 Pulse Rate 92 08/31/24 14:54 Respiratory Rate 20 08/31/24 14:54 Blood Pressure 153/87 H 08/31/24 13:07 Pulse Oximetry 95 08/31/24 14:30 Oxygen Delivery High Flow Therapy with Face Mask 08/31/24 14:30 Oxygen Flow Rate 10 08/31/24 14:30 MDM - SOB/Dyspnea Lab Data 08/31/24 14:33 08/31/24 14:33 Labs: Lab Results 08/31/24 Range/Units 14:33 WBC 15.9 H (4.5-10.0) K/mm3 RBC 5.12 (4.2-5.4) M/mm3 Hgb 15.6 H (12.0-15.0) g/dL Hct 46.4 (37.0-47.0) % MCV 90.6 (80-100) fl MCH 30.5 (26-34) pg MCHC 33.6 (32-36) g/dl RDW 13.2 (11.5-14.5) % Plt Count 265 (150-375) k/mm3 MPV 9.0 (7.4-10.4) fl Immature Gran % (Auto) 0.3 (0-0.5) % Neut % (Auto) 83.3 H (45.5-73.1) % Lymph % (Auto) 7.2 L (18.3-44.2) % [place] % (Auto) 7.2 (2.6-8.5) % Eos % (Auto) 1.6 (0-4.4) % Baso % (Auto) 0.4 (0.2-1.2) % Lymph # (Auto) 1.14 (0.9-3.2) K/mm3 [place] # (Auto) 1.2 H (0.1-0.6) K/mm3 Eos # (Auto) 0.3 (0-0.3) K/mm3 Baso # (Auto) 0.1 (0.0-0.1) K/mm3 Abs Immat Gran (auto) 0.05 H (0.00-0.031) K/mm3 Absolute Neuts (auto) 13.2 H (1.3-6.7) K/mm3 Absolute Nucleated RBC 0.000 (0.0-0.012) K/mm3 Nucleated RBC % 0.0 (0.0-0.2) % Sodium 133 L (137-145) mmol/L Potassium 4.2 (3.4-5.0) mmol/L Chloride 103 (98-107) mmol/L Carbon Dioxide 25 (22-30) mmol/L Anion Gap 5 (4-12) mmol/L BUN 6 L D (7-17) mg/dL Creatinine 0.50 L (0.7-1.0) mg/dL Estim Creat Clear Calc 162 ml/min Estimated GFR > 60 (59 - ) Glucose 107 (65-110) mg/dL Lactic Acid 1.0 (0.7-2.0) mmol/L Calcium 9.2 (8.4-10.2) mg/dL Total Bilirubin 0.9 (0.2-1.3) mg/dL AST 31 (14-36) U/L ALT 18 (6-35) U/L Alkaline Phosphatase 78 (38-126) U/L Total Protein 8.0 (6.3-8.2) g/dL Albumin 4.5 (3.5-5.1) g/dL Influenza A (RT-PCR) Negative (Negative) Influenza B (RT-PCR) Negative (Negative) RSV (RT-PCR) Negative (Negative) SARS-CoV-2 RNA (RT-PCR) Negative (Negative) Imaging Data Radiologist's impression: ITS Impressions Chest X-Ray 08/31/24 15:09 IMPRESSION: 1. Mild airspace opacities in the lower lung zones, consistent with atelectasis versus pneumonia. Discharge Plan Discharge Clinical Impression: Pneumonia, Hypoxia Patient Disposition: Still a Patient Condition: Stable
[2024-08-31 15:41] LABS: Influenza A QL RT-PCR Negative (Negative); Influenza B QL RT-PCR Negative (Negative); RSV RNA, RT-PCR Negative (Negative); SARS-CoV-2 RNA PCR Negative (Negative)
[2024-08-31] MEDS: NICOTINE (*PBKC) 14 MG PATCH 1 PATCH TRANSDERM (16:52)
[2024-08-31] MEDS: AZITHROMYCIN 500 MG/NS 250 ML 500 MG/250 ML BAG 250 MG IVPB (17:05)
--- NOTE | 2024-08-31 18:06 | PM.IMHP ---
H&P: HPI History of Present Illness Date/Time: 08/31/24 18:06 [facility] Past Medical History Medical History Anxiety Asthma Brainstem tumor Depression Hypercholesterolemia Hypertension Seizures Surgical History Surgical History History of cholecystectomy History of tonsillectomy Social History Social History Smoking packs per day: 1 Smoking cigarettes per day: 20.0 Years smoked: 27 Smoking pack-years: 27.00 Smoking status: Current every day smoker Tobacco type: cigarettes Substance use: current Substance use type: marijuana Living arrangements: with family Additional living arrangements comments: SON Gender identity (if verbalized by the patient): Female Spiritual care concerns: No Meds Home Medications and Allergies Home Medications ?Medication ?Instructions ?Recorded ?Confirmed ?Type albuterol sulfate 90 mcg/actuation 2 inh inhalation Q4-6H PRN 11/27/19 08/31/24 History aerosol inhaler (Ventolin HFA) Shortness Of Breath diazepam 5 mg tablet 10 mg PO HS 11/27/19 08/31/24 History furosemide 20 mg tablet 40 mg PO DAILY 11/27/19 08/31/24 History omeprazole 20 mg capsule,delayed 20 mg PO DAILY 11/27/19 08/31/24 History release ondansetron HCl 8 mg tablet 8 mg PO Q8H PRN Nausea 11/27/19 08/31/24 History sertraline 100 mg tablet 100 mg PO HS 11/27/19 08/31/24 History levetiracetam 500 mg tablet 3,000 mg PO HS 02/06/20 08/31/24 History metoprolol succinate 100 mg 100 mg PO HS 02/06/20 08/31/24 History tablet,extended release 24 hr atorvastatin 20 mg tablet 20 mg PO DAILY 01/04/24 08/31/24 History metoprolol succinate 200 mg 200 mg PO DAILY 01/04/24 08/31/24 History tablet,extended release 24 hr naloxegol 25 mg tablet (Movantik) 25 mg PO DAILY 01/04/24 08/31/24 History oxycodone-acetaminophen 10 mg-325 1 tablet PO Q4-6H PRN Pain 01/04/24 08/31/24 History mg tablet promethazine 50 mg tablet 20 mg PO Q6H PRN Nausea 01/04/24 08/31/24 History oxycodone-acetaminophen 10 mg-325 1 tablet PO Q4-6H PRN Pain Rated 6 01/12/24 08/31/24 Rx mg tablet Or Greater #30 tabs Allergies Allergy/AdvReac Type Severity Reaction Status Date / Time adhesive tape Allergy Mild Rash Verified 01/11/24 07:29 sumatriptan Allergy Mild Unknown Verified 01/11/24 07:29 Vital Signs Vital Signs - 24 hr 08/31/24 13:07 08/31/24 13:51 08/31/24 14:30 Temperature 98.4 F Pulse Rate 102 H 94 Respiratory Rate 22 H 20 Blood Pressure 153/87 H Pulse Oximetry 87 L 95 Oxygen Delivery High Flow Therapy with Fa Oxygen Flow Rate 10 08/31/24 14:54 Temperature Pulse Rate 92 Respiratory Rate 20 Blood Pressure Pulse Oximetry Oxygen Delivery Oxygen Flow Rate H&P: Results Labs Labs: Short CBC 08/31/24 Range/Units 14:33 WBC 15.9 H (4.5-10.0) K/mm3 Hgb 15.6 H (12.0-15.0) g/dL Hct 46.4 (37.0-47.0) % Plt Count 265 (150-375) k/mm3 [facility] 08/31/24 14:33 Sodium 133 L Potassium 4.2 Chloride 103 Carbon Dioxide 25 BUN 6 L D Creatinine 0.50 L Glucose 107 Calcium 9.2 Liver Function 08/31/24 Range/Units 14:33 Total Bilirubin 0.9 (0.2-1.3) mg/dL AST 31 (14-36) U/L ALT 18 (6-35) U/L Alkaline Phosphatase 78 (38-126) U/L Albumin 4.5 (3.5-5.1) g/dL
--- NOTE | 2024-08-31 18:41 | ADMGEN ---
This patient, Bruna Caro, was admitted to [address] [place] [address] Room 310-01. Patient/family oriented to hospital policies and general routines including ID bracelet, bed and alarms, visiting hours, pain management, procedures, bathroom and other care routines, personal items, smoking policy, room service/diet, and visiting hours. Information on how to activate the Rapid Response Team has been discussed. Patient/Family are encouraged to report perceived risks to care and to ask questions if they do not understand what they are told or what they should do.
[2024-08-31] MEDS: HYDROcodone/acetaminophen (*CRX) 5-325 MG TABLET 1 TAB PO (18:51)
[2024-08-31] MEDS: IPRATROPIUM 0.5 MG/ALBUTEROL SULFATE 2.5 MG AMPUL.NEB 3 ML INHALATION (21:00)
--- NOTE | 2024-08-31 22:29 | P.HP_ITS ---
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 She had some postnasal drip and rhinorrhea. Her sinus drainage was clear to yellow in color. Upper days later she developed increasing cough cough is occasionally productive of clear to yellow sputum. She reported that about 5 days ago she began having orthopnea and had to have pillows to proper up to about 30?. She was having palpitations any time she would get up to exert herself that acutely worsened just before coming to the ER. He she was having severe chest heaviness 2 or 3 days ago and felt as if she could not catch her breath. She reported that her thermometer had a low battery and was unable to check her temperature at home but she was having rigors and intermittent sweats for the last several days. She does have a history of a be Monique to her brainstem since 2009. She is followed at [facility] [place] and she reports that her MRI last week was stable without changes. But she does admit that she has had increasing diplopia over the last 8 months. She she has also been having some throat clearing and he cups after eating and drinking that is been going on for a while. She does admit that her 22-year-old son has been ill with upper respiratory symptoms this past week as well. Patient does take Lasix but denies known history of CHF. She takes Lasix due to intermittent leg swelling. She denies history of coronary artery disease tachyarrhythmia as, renal disease or fatty liver. She has not had any recent medication changes. Review of Systems 2 Review of Systems: 12 systems were reviewed with pertinent positives and negatives per HPI. Except as documented in the HPI, all other systems were reviewed and are negative. 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 She has subsequently had multiple episodes of radiation therapy. Her tumor did not respond to chemotherapy. She is followed by Oncology and Neurology at [facility]. Surgical History Surgical History (Updated 08/31/24 @ 23:10 by Mey Polanco DO) History of hysterectomy for benign disease (12/2023) Without oophorectomy History of cholecystectomy History of tonsillectomy Social History Social History (Updated 08/31/24 @ 23:12 by Mey Polanco DO) Social History: The patient lives in a duplex. Her mother owns to duplex and lives on 1 side she and her son live on the other side. Her son is 22 years old. The patient is smoked a pack per day since she was 17 years old. She denies any history of alcohol use at all. She does smoke marijuana on a daily basis. She has been on disability since at least 2015 since she was diagnosed with a brainstem tumor. Code status: Full code (patient does have a living will) Surrogate decision maker: Mother Smoking packs per day: 1 Smoking cigarettes per day: 20.0 Years smoked: 27 Smoking pack-years: 27.00 Smoking status: Current every day smoker Substance use: current Substance use type: marijuana Do You Feel Safe in your Home?: Yes Lack of Transportation: No Lack of Food: Never True Current Housing: I Have Housing Concerned About Future Housing: No Difficulty Paying Gas/Electric Bills: No Difficulty Paying for Meds: No Currently Unemployed: No Education: Decline to Answer Difficulty w/ Childcare or Family Care: No Living arrangements: with family Additional living arrangements comments: SON Gender identity (if verbalized by the patient): Female Spiritual care concerns: No Meds Home Medications and Allergies Home Medications ?Medication ?Instructions ?Recorded ?Confirmed ?Type albuterol sulfate 90 mcg/actuation 2 inh inhalation Q4-6H PRN 11/27/19 08/31/24 History aerosol inhaler (Ventolin HFA) Shortness Of Breath diazepam 5 mg tablet 10 mg PO HS 11/27/19 08/31/24 History furosemide 20 mg tablet 40 mg PO HS 11/27/19 08/31/24 History omeprazole 20 mg capsule,delayed 20 mg PO HS 11/27/19 08/31/24 History release ondansetron HCl 8 mg tablet 8 mg PO Q8H PRN Nausea 11/27/19 08/31/24 History sertraline 100 mg tablet 100 mg PO HS 11/27/19 08/31/24 History levetiracetam 500 mg tablet 1,500 mg PO BID 02/06/20 08/31/24 History metoprolol succinate 100 mg 100 mg PO HS 02/06/20 08/31/24 History tablet,extended release 24 hr atorvastatin 20 mg tablet 20 mg PO HS 01/04/24 08/31/24 History metoprolol succinate 200 mg 200 mg PO DAILY 01/04/24 08/31/24 History tablet,extended release 24 hr naloxegol 25 mg tablet (Movantik) 25 mg PO HS 01/04/24 08/31/24 History oxycodone-acetaminophen 10 mg-325 1 tablet PO Q4-6H PRN Pain 01/04/24 08/31/24 History mg tablet promethazine 50 mg tablet 20 mg PO Q6H PRN Nausea 01/04/24 08/31/24 History Allergies Allergy/AdvReac Type Severity Reaction Status Date / Time adhesive tape Allergy Mild Rash Verified 01/11/24 07:29 sumatriptan Allergy Mild Unknown Verified 01/11/24 07:29 Vital Signs Vital Signs - 24 hr 08/31/24 13:07 08/31/24 13:51 08/31/24 14:30 Temperature 98.4 F Pulse Rate 102 H 94 Respiratory Rate 22 H 20 Blood Pressure 153/87 H Pulse Oximetry 87 L 95 Oxygen Delivery High Flow Therapy with Fa Oxygen Flow Rate 10 08/31/24 14:54 08/31/24 18:00 08/31/24 18:43 Temperature 97.0 F L Pulse Rate 92 80 79 Respiratory Rate 20 18 18 Blood Pressure 161/94 H 173/84 H Pulse Oximetry 95 94 Oxygen Delivery Oxygen Flow Rate 08/31/24 21:01 08/31/24 21:06 08/31/24 21:08 Temperature Pulse Rate 78 78 80 Respiratory Rate 18 18 Blood Pressure Pulse Oximetry 96 Oxygen Delivery Nasal Cannula Oxygen Flow Rate 2 08/31/24 21:17 08/31/24 21:48 Temperature 97.6 F Pulse Rate 79 80 Respiratory Rate 18 Blood Pressure 182/86 H Pulse Oximetry 95 Oxygen Delivery Oxygen Flow Rate Exam 2 Narrative: Weight 125 kg BMI 44.5 H&P: Results Labs Labs: Laboratory Tests 08/31/24 14:33 08/31/24 14:33 08/31/24 14:33 WBC 15.9 H RBC 5.12 Hgb 15.6 H Hct 46.4 MCV 90.6 MCH 30.5 MCHC 33.6 RDW 13.2 Plt Count 265 MPV 9.0 Immature Gran % (Auto) 0.3 Neut % (Auto) 83.3 H Lymph % (Auto) 7.2 L Mcpherson % (Auto) 7.2 Eos % (Auto) 1.6 Baso % (Auto) 0.4 Lymph # (Auto) 1.14 Mcpherson # (Auto) 1.2 H Eos # (Auto) 0.3 Baso # (Auto) 0.1 Abs Immat Gran (auto) 0.05 H Absolute Neuts (auto) 13.2 H Absolute Nucleated RBC 0.000 Nucleated RBC % 0.0 Sodium 133 L Potassium 4.2 Chloride 103 Carbon Dioxide 25 Anion Gap 5 BUN 6 L D Creatinine 0.50 L Estim Creat Clear Calc 162 Estimated GFR > 60 Glucose 107 Lactic Acid 1.0 Calcium 9.2 Total Bilirubin 0.9 AST 31 ALT 18 Alkaline Phosphatase 78 Total Protein 8.0 Albumin 4.5 Influenza A (RT-PCR) Negative Influenza B (RT-PCR) Negative RSV (RT-PCR) Negative SARS-CoV-2 RNA (RT-PCR) Negative Impressions Chest X-Ray 08/31/24 15:09 IMPRESSION: 1. Mild airspace opacities in the lower lung zones, consistent with atelectasis versus pneumonia. All imaging and EKGs personally reviewed and interpreted. And unless stated otherwise agree with radiologic and cardiology interpretation. Assessment and Plan Assessment and plan (1) Acute hypoxic respiratory failure: Code(s): J96.01 - Acute respiratory failure with hypoxia Status: Acute (2) Pneumonia: Qualifiers: Pneumonia type: due to unspecified organism Laterality: bilateral Lung location: unspecified part of lung Qualified Code(s): J18.9 - Pneumonia, unspecified organism Code(s): J18.9 - Pneumonia, unspecified organism Status: Acute (3) Sepsis: Qualifiers: Sepsis type: sepsis due to unspecified organism Sepsis acute organ dysfunction status: with acute organ dysfunction Severe sepsis acute organ dysfunction type: acute respiratory failure Acute respiratory failure type: w ith hypoxia Severe sepsis shock status: without septic shock Qualified Code(s): A41.9 - Sepsis, unspecified organism; R65.20 - Severe sepsis without septic shock; J96.01 - Acute respiratory failure with hypoxia Code(s): A41.9 - Sepsis, unspecified organism Status: Acute (4) Suspected pulmonary aspiration of food: Code(s): R09.89 - Other specified symptoms and signs involving the circulatory and respiratory systems Status: Acute (5) Snoring: Code(s): R06.83 - Snoring Status: Acute (6) Morbid obesity with BMI of 40.0-44.9, adult: Code(s): E66.01 - Morbid (severe) obesity due to excess calories; Z68.41 - Body mass index [BMI] 40.0-44.9, adult Status: Acute (7) White coat syndrome with hypertension: Code(s): I10 - Essential (primary) hypertension Status: Acute (8) Essential hypertension: Code(s): I10 - Essential (primary) hypertension Status: Acute Plan Patient has sepsis with acute hypoxic respiratory failure and suspected bilateral pneumonia. Patient is requiring 1-2 L nasal cannula oxygen. She was started on empiric antibiotic therapy with Rocephin and azithromycin for possible being quite pneumonia. Patient's son was recently ill so she does have some viral exposures but her COVID flu and RSV PCR were negative. At the time of my evaluation the patient did take a drink of water and was noticed to have some throat clearing and coughing immediately following. She reported that those symptoms have been ongoing on and off for months. 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 Patient may have a component of underlying aspiration. Patient was also symptoms concerning for pulmonary embolism given her history of cancer she could have a hypercoagulable state. Will send patient for CT of the chest to rule out pulmonary embolism. Will send urine for urine Legionella pneumococcal antigen. In oxygen as tolerated. Blood cultures are pending. Will repeat CBC and electrolyte panel in a.m.. Patient does have significant wheezing and does have a long known history of smoking. She does have inhalers at home but denies known history of COPD. Patient may have some underlying COPD the previously undiagnosed. Will continue scheduled nebulizers. Patient would benefit from outpatient pulmonary function testing on discharge. Patient is morbidly obese and reports significant snoring. Reports a prior episode of respiratory failure with light sedation and likely has some component of underlying apnea. Will order ApneaLink prior to discharge. Patient would benefit from outpatient polysomnogram. Patient's blood pressures are elevated above goal. She does have a history of essential hypertension but does admit that she has a component of white coat hypertension as well. Will monitor blood pressures and will add antihypertensives as needed. Will allow patient to settle and rest before repeat blood pressure evaluation Patient does have a seizure disorder will continue home diazepam and Keppra. Patient does have chronic pain home Percocet has been ordered. Unfortunately we do not have Movantik available here in this is been placed on hold for her opiate induced constipation She does have chronic nausea due to her history of brain tumor. Will resume her home promethazine as needed. Patient has been admitted as observation status. Quality VTE Prophylaxis VTE prophylaxis: pharmacologic ordered (Lovenox 40 mg subQ q.12h) Hospitalist [facility] Advance Care Plan I have confirmed that the patient's Advanced Care Plan is present, code status is documented, or surrogate decision maker is listed in patient medical record.: Yes Medication Reconciliation I have utilized all available resources to obtain, update and review the patients current medications (includes all prescriptions, OTC, herbals, cannabis, and nutritional supplements).: Yes
[2024-08-31] MEDS: SERTRALINE HCL 50 MG TABLET 100 MG PO (23:24)
[2024-08-31] MEDS: diazePAM (*CRX) 5 MG TABLET 10 MG PO (23:25)
[2024-08-31] MEDS: levETIRAcetam 500 MG TABLET 1500 MG PO (23:45)
[2024-09-01] VITALS (15 sets, daily range): BP systolic 147–176; BP diastolic 80–84; PULSE 70–94; RESP 16–22; TEMP 36.1–36.9; O2SAT 93–98; BMI 44.4
[2024-09-01] MEDS: PROMETHAZINE HCL 25 MG TABLET 50 MG PO ×3 (00:02→17:25)
[2024-09-01] MEDS: IPRATROPIUM 0.5 MG/ALBUTEROL SULFATE 2.5 MG AMPUL.NEB 3 ML INHALATION ×4 (01:56→21:09)
--- NOTE | 2024-09-01 05:42 | PCRCNOTE ---
Patient stated she is supposed to complete a sleep study at another facility in the near future per her seizure doctor.
[2024-09-01 07:12] LABS: Basophils Percent Auto 0.3 % (0.2-1.2); Eosinophils Absolute Auto 0.3 K/mm3 (0-0.3); Eosinophils Percent Auto 2.5 % (0-4.4); Hematocrit 43.9 % (37.0-47.0); Hemoglobin 14.4 g/dL (12.0-15.0); Immature Granulocyte Absolute 0.08 K/mm3 (0.00-0.031); Immature Granulocyte Percent A 0.7 % (0-0.5); Lymphocytes Percent Auto 10.8 % (18.3-44.2); Mean Corpuscular HGB Conc 32.8 g/dl (32-36); Mean Corpuscular Hemoglobin 30.2 pg (26-34); Mean Platelet Volume 9.1 fl (7.4-10.4); Monocytes Percent Auto 7.9 % (2.6-8.5); Neutrophils Absolute Auto 9.4 K/mm3 (1.3-6.7); Neutrophils Percent Auto 77.8 % (45.5-73.1); Platelet Count Result 269 k/mm3 (150-375); Red Blood Count 4.77 M/mm3 (4.2-5.4); Red Cell Distribution Width 13.3 % (11.5-14.5); White Blood Count 12.1 K/mm3 (4.5-10.0)
[2024-09-01 07:18] LABS: Anion Gap 3 mmol/L (4-12); Blood Urea Nitrogen 6 mg/dL (7-17); Carbon Dioxide 30 mmol/L (22-30); Chloride 104 mmol/L (98-107); Estimated CRCL calculation 137 ml/min; Estimated Glomerular Filt Rate > 60; Glucose 110 mg/dL (65-110); Potassium 3.9 mmol/L (3.4-5.0); Sodium 137 mmol/L (137-145)
[2024-09-01] MEDS: METOPROLOL SUCCINATE EXT REL 100 MG TABCR 200 MG PO (09:05)
[2024-09-01] MEDS: levETIRAcetam 500 MG TABLET 1500 MG PO ×2 (09:05→20:53)
[2024-09-01] MEDS: ATORVASTATIN 20 MG TABLET PO (09:06)
[2024-09-01] MEDS: FUROSEMIDE 40 MG TABLET PO (09:06)
[2024-09-01] MEDS: PANTOPRAZOLE 40 MG TABLET PO (09:06)
[2024-09-01] MEDS: ENOXAPARIN 40 MG/0.4 ML SYRINGE SUB-Q ×2 (09:14→20:53)
[2024-09-01] MEDS: oxyCODONE/ACETAMINOPHEN (*CRX) 10-325 MG TABLET 1 TAB PO ×2 (09:15→17:26)
[2024-09-01] MEDS: NICOTINE (*PBKC) 14 MG PATCH 1 PATCH TRANSDERM (09:16)
[2024-09-01] MEDS: AZITHROMYCIN 500 MG/NS 250 ML 500 MG/250 ML BAG 250 MG IVPB (12:55)
--- NOTE | 2024-09-01 16:19 | PCSTNOTE ---
Please refer to the Bedside Swallow Evaluation in the EMR. Please note, silent aspiration cannot be ruled out at bedside.
--- NOTE | 2024-09-01 16:56 | PM.IMPN ---
Progress Note: A&P Assessment and Plan (1) Acute hypoxic respiratory failure: Code(s): J96.01 - Acute respiratory failure with hypoxia Status: Acute (2) Pneumonia: Qualifiers: Laterality: bilateral Lung location: unspecified part of lung Pneumonia type: due to unspecified organism Qualified Code(s): J18.9 - Pneumonia, unspecified organism Code(s): J18.9 - Pneumonia, unspecified organism Status: Acute (3) Sepsis: Qualifiers: Acute respiratory failure type: with hypoxia Sepsis acute organ dysfunction status: with acute organ dysfunction Sepsis type: sepsis due to unspecified organism Severe sepsis acute organ dysfunction type: acute respiratory failure Severe sepsis shock status: without septic shock Qualified Code(s): A41.9 - Sepsis, unspecified organism; R65.20 - Severe sepsis without septic shock; J96.01 - Acute respiratory failure with hypoxia Code(s): A41.9 - Sepsis, unspecified organism Status: Acute (4) Suspected pulmonary aspiration of food: Code(s): R09.89 - Other specified symptoms and signs involving the circulatory and respiratory systems Status: Acute (5) Snoring: Code(s): R06.83 - Snoring Status: Acute (6) Morbid obesity with BMI of 40.0-44.9, adult: Code(s): E66.01 - Morbid (severe) obesity due to excess calories; Z68.41 - Body mass index [BMI] 40.0-44.9, adult Status: Acute (7) White coat syndrome with hypertension: Code(s): I10 - Essential (primary) hypertension Status: Acute (8) Essential hypertension: Code(s): I10 - Essential (primary) hypertension Status: Acute Plan 43 y/o female hx malignant brainstem neoplasm s/p radiation, admitted for 1 week of viral symptoms with cough and new shortness of breath. Sepsis Acute hypoxic Respiratory Failure On 2L NC Wean as tolerated Duonebs given wheezing Monitoring off steroids Consider outpatient PFT's Furosemide 40 daily ordered Pneumonia Started on empiric Rocephin and Azithromycin. COVID/Flu/RSV negative 08/31 CTA showed 1. No pulmonary embolus. Sensitivity is mildly decreased by obesity and suboptimal contrast opacification. 2. Diffuse lung disease, likely atypical pneumonia. 3. Right lower lobe nodules measuring up to 7 mm, probably benign. Noncontrast low-dose chest CT is recommended in 6-12 months. 4. Mild right hilar lymphadenopathy, likely reactive. Plan Follow up Mycoplasma IgG & IgM, Legionella Urine ag Chronic cough with water intermitently. Hx intubation and difficulty with tongue movements --Speech eval Obesity Apnea link Outpatient sleep study HTN hx white coat hypertension Monitor, likely defer to outpatient Hx seizures Continue Keppra, diazepam Chronic pain Continued home percocet Movantik not avaible Chronic nausea since brain tumore --Zofran, promethazine prn Patient has been admitted as observation status. Time Spent With Patient Time: 48 minutes Subjective Date/time seen: 09/01/24 16:56 Interval history: Still with mild wheezing, chronic nausea. On 2L O2 Discharge pending O2 needs, wean off if possible Review of Systems Review of Systems: 12 systems were reviewed with pertinent positives and negatives per HPI. Except as documented in the HPI, all other systems were reviewed and are negative. Exam Narrative: Weight 125 kg BMI 44.5 Objective Data Vital Signs Vital Signs: Vital Signs - 24 hr 08/31/24 18:00 08/31/24 18:43 08/31/24 20:00 Temperature 97.0 F L Pulse Rate 80 79 Respiratory Rate 18 18 Blood Pressure 161/94 H 173/84 H Pulse Oximetry 95 94 95 Oxygen Delivery Nasal Cannula Oxygen Flow Rate 2 08/31/24 21:01 08/31/24 21:06 08/31/24 21:08 Temperature Pulse Rate 78 78 80 Respiratory Rate 18 18 Blood Pressure Pulse Oximetry 96 Oxygen Delivery Nasal Cannula Oxygen Flow Rate 2 08/31/24 21:17 08/31/24 21:48 09/01/24 01:57 Temperature 97.6 F Pulse Rate 79 80 78 Respiratory Rate 18 18 Blood Pressure 182/86 H Pulse Oximetry 95 Oxygen Delivery Oxygen Flow Rate 09/01/24 02:10 09/01/24 05:22 09/01/24 08:00 Temperature 97.8 F Pulse Rate 78 82 Respiratory Rate 18 20 Blood Pressure 176/84 H Pulse Oximetry 94 93 Oxygen Delivery Nasal Cannula Oxygen Flow Rate 2 09/01/24 08:14 09/01/24 08:14 09/01/24 08:28 Temperature Pulse Rate 94 76 Respiratory Rate 18 18 Blood Pressure Pulse Oximetry 94 Oxygen Delivery Nasal Cannula Oxygen Flow Rate 2 09/01/24 09:05 09/01/24 14:00 09/01/24 14:44 Temperature 98.4 F Pulse Rate 82 73 74 Respiratory Rate 16 22 H Blood Pressure 147/80 H Pulse Oximetry 97 Oxygen Delivery Oxygen Flow Rate 09/01/24 14:49 Temperature Pulse Rate 70 Respiratory Rate 22 H Blood Pressure Pulse Oximetry Oxygen Delivery Oxygen Flow Rate Intake/Output Intake/Output: Intake & Output 08/29/24 08/30/24 08/31/24 09/01/24 23:59 23:59 23:59 23:59 Intake Total 300 790 Balance 300 790 Meds/Results Medications: Active Medications Generic Name Dose Route Start Last Admin Trade Name Freq PRN Reason Stop Dose Admin Acetaminophen 650 mg 08/31/24 16:41 Acetaminophen 325 Mg Tablet PO Q4H PRN Mild Pain (1-3) or Fever Hydrocodone Bitart/Acetaminophen 1 tab 08/31/24 16:41 08/31/24 18:51 Hydrocodone/Acetaminophen (*Crx) 5-325 Mg Tablet PO 1 tab Q4H PRN Administration Pain Rated 4-6 Albuterol/Ipratropium 3 ml 08/31/24 20:00 09/01/24 14:43 Ipratropium 0.5 Mg/Albuterol Sulfate 2.5 Mg Ampul.Neb 3 Ml INHALATION 3 ml Q6HRT BRISEYDA Administration Atorvastatin Calcium 20 mg 09/01/24 09:00 09/01/24 09:06 Atorvastatin 20 Mg Tablet PO 20 mg DAILY BRISEYDA Administration Diazepam 10 mg 08/31/24 21:15 08/31/24 23:25 Diazepam (*Crx) 5 Mg Tablet PO 10 mg HS BRISEYDA Administration Enoxaparin Sodium 40 mg 09/01/24 09:00 09/01/24 09:14 Enoxaparin 40 Mg/0.4 Ml Syringe SUB-Q 40 mg Q12HR BRISEYDA Administration Furosemide 40 mg 09/01/24 09:00 09/01/24 09:06 Furosemide 40 Mg Tablet PO 40 mg DAILY BRISEYDA Administration Ceftriaxone Sodium 1 gm in 50 mls @ 100 mls/hr 09/01/24 12:00 09/01/24 12:55 Rocephin 1 Gm/Ns 50 Ml IVPB 100 mls/hr Q24H BRISEYDA Administration Azithromycin 500 mg in 250 mls @ 250 mls/hr 09/01/24 12:00 09/01/24 12:55 Zithromax IVPB 250 mls/hr Q24H BRISEYDA Administration Levetiracetam 1,500 mg 08/31/24 23:25 09/01/24 09:05 Levetiracetam 500 Mg Tablet PO 1,500 mg Q12HR BRISEYDA Administration Metoprolol Succinate 100 mg 08/31/24 21:15 08/31/24 21:48 Metoprolol Succinate Ext Rel 100 Mg Tabcr PO Not Given HS BRISEYDA Metoprolol Succinate 200 mg 09/01/24 09:00 09/01/24 09:05 Metoprolol Succinate Ext Rel 100 Mg Tabcr PO 200 mg DAILY BRISEYDA Administration Nicotine 1 patch 08/31/24 15:55 09/01/24 09:16 Nicotine (*Pbkc) 14 Mg Patch TRANSDERM 1 patch DAILY BRISEYDA Administration Oxycodone/Acetaminophen 1 tab 08/31/24 21:19 09/01/24 09:15 Oxycodone/Acetaminophen (*Crx) 10-325 Mg Tablet PO 1 tab Q4H PRN Administration Pain 4-10 Pantoprazole Sodium 40 mg 09/01/24 09:00 09/01/24 09:06 Pantoprazole 40 Mg Tablet PO 40 mg QAM BRISEYDA Administration Promethazine HCl 12.5 mg 08/31/24 16:41 Promethazine Hcl 25 Mg/Ml Ampul IV PUSH Q6H PRN Nausea Promethazine HCl 50 mg 08/31/24 23:34 09/01/24 09:16 Promethazine Hcl 25 Mg Tablet PO 50 mg Q6H PRN Administration Nausea Sertraline HCl 100 mg 08/31/24 21:20 08/31/24 23:24 Sertraline Hcl 50 Mg Tablet PO 100 mg HS BRISEYDA Administration Radiology Results: ITS Impressions Chest X-Ray 08/31/24 15:09 IMPRESSION: 1. Mild airspace opacities in the lower lung zones, consistent with atelectasis versus pneumonia. Chest CTA 08/31/24 23:10 IMPRESSION: 1. No pulmonary embolus. Sensitivity is mildly decreased by obesity and suboptimal contrast opacification. 2. Diffuse lung disease, likely atypical pneumonia. 3. Right lower lobe nodules measuring up to 7 mm, probably benign. Noncontrast low-dose chest CT is recommended in 6-12 months. 4. Mild right hilar lymphadenopathy, likely reactive. Labs Labs: Laboratory Results - last 24 hr 09/01/24 06:39 WBC 12.1 H RBC 4.77 Hgb 14.4 Hct 43.9 MCV 92.0 MCH 30.2 MCHC 32.8 RDW 13.3 Plt Count 269 MPV 9.1 Immature Gran % (Auto) 0.7 H Neut % (Auto) 77.8 H Lymph % (Auto) 10.8 L [place] % (Auto) 7.9 Eos % (Auto) 2.5 Baso % (Auto) 0.3 Lymph # (Auto) 1.30 [place] # (Auto) 1.0 H Eos # (Auto) 0.3 Baso # (Auto) 0.0 Abs Immat Gran (auto) 0.08 H Absolute Neuts (auto) 9.4 H Absolute Nucleated RBC 0.000 Nucleated RBC % 0.0 Sodium 137 Potassium 3.9 Chloride 104 Carbon Dioxide 30 Anion Gap 3 L BUN 6 L Creatinine 0.60 L Estim Creat Clear Calc 137 Estimated GFR > 60 Glucose 110 Calcium 9.0 Quality VTE Prophylaxis VTE prophylaxis: pharmacologic ordered (Lovenox 40 mg subQ q.12h) Hospitalist [facility] Advance Care Plan I have confirmed that the patient's Advanced Care Plan is present, code status is documented, or surrogate decision maker is listed in patient medical record.: Yes Medication Reconciliation I have utilized all available resources to obtain, update and review the patients current medications (includes all prescriptions, OTC, herbals, cannabis, and nutritional supplements).: Yes
[2024-09-01] MEDS: METOPROLOL SUCCINATE EXT REL 100 MG TABCR PO (17:25)
[2024-09-01] MEDS: oxyCODONE/ACETAMINOPHEN (*CRX) 10-325 MG TABLET PO (20:52)
[2024-09-01] MEDS: SENNA/DOCUSATE SODIUM TABLET 1 TAB PO (20:52)
[2024-09-01] MEDS: SERTRALINE HCL 50 MG TABLET 100 MG PO (20:52)
[2024-09-01] MEDS: diazePAM (*CRX) 5 MG TABLET 10 MG PO (20:53)
[2024-09-02] VITALS (16 sets, daily range): BP systolic 145–166; BP diastolic 78–86; PULSE 75–88; RESP 18–20; TEMP 36.1–36.7; O2SAT 91–95
[2024-09-02] MEDS: IPRATROPIUM 0.5 MG/ALBUTEROL SULFATE 2.5 MG AMPUL.NEB 3 ML INHALATION ×4 (01:00→20:26)
[2024-09-02] MEDS: levETIRAcetam 500 MG TABLET 1500 MG PO ×2 (08:38→22:22)
[2024-09-02] MEDS: METOPROLOL SUCCINATE EXT REL 100 MG TABCR 200 MG PO (08:39)
[2024-09-02] MEDS: ATORVASTATIN 20 MG TABLET PO (08:39)
[2024-09-02] MEDS: oxyCODONE/ACETAMINOPHEN (*CRX) 10-325 MG TABLET PO ×4 (08:39→22:22)
[2024-09-02] MEDS: FUROSEMIDE 40 MG TABLET PO (08:39)
[2024-09-02] MEDS: PROMETHAZINE HCL 25 MG TABLET 50 MG PO ×2 (08:40→17:02)
[2024-09-02] MEDS: PANTOPRAZOLE 40 MG TABLET PO (08:40)
[2024-09-02] MEDS: NICOTINE (*PBKC) 14 MG PATCH 1 PATCH TRANSDERM (08:40)
[2024-09-02] MEDS: ENOXAPARIN 40 MG/0.4 ML SYRINGE SUB-Q ×2 (08:40→22:21)
[2024-09-02] MEDS: BENZONATATE 100 MG CAPSULE 200 MG PO ×3 (08:49→17:02)
--- NOTE | 2024-09-02 09:00 | ECG_ITS ---
Test Date: 2024-09-02 08:54:31 Measurements Intervals [place] Rate: 87 P: 45 SC: 154 QRS: 63 QRSD: 99 T: 55 QT: 379 QTc: 458 Interpretive Statements SINUS RHYTHM No previous ECG available for comparison Electronically Signed On 09-02-2024 09:19:29 [employer] by Itzel Solomon M.D.
--- NOTE | 2024-09-02 09:46 | PCSTNOTE ---
Bedside swallow evaluation completed yesterday. ST communicated with physician today and agreed to d/c.
--- NOTE | 2024-09-02 11:34 | P.PNIM_ITS ---
Progress Note: A&P Assessment and Plan (1) Acute hypoxic respiratory failure: Code(s): J96.01 - Acute respiratory failure with hypoxia Status: Acute (2) Pneumonia: Qualifiers: Laterality: bilateral Lung location: unspecified part of lung Pneumonia type: due to unspecified organism Qualified Code(s): J18.9 - Pneumonia, unspecified organism Code(s): J18.9 - Pneumonia, unspecified organism Status: Acute (3) Sepsis: Qualifiers: Sepsis type: sepsis due to unspecified organism Sepsis acute organ dysfunction status: with acute organ dysfunction Severe sepsis acute organ dysfunction type: acute respiratory failure Acute respiratory failure type: wit h hypoxia Severe sepsis shock status: without septic shock Qualified Code(s): A41.9 - Sepsis, unspecified organism; R65.20 - Severe sepsis without septic shock; J96.01 - Acute respiratory failure with hypoxia Code(s): A41.9 - Sepsis, unspecified organism Status: Acute (4) Suspected pulmonary aspiration of food: Code(s): R09.89 - Other specified symptoms and signs involving the circulatory and respiratory systems Status: Acute (5) Snoring: Code(s): R06.83 - Snoring Status: Acute (6) Morbid obesity with BMI of 40.0-44.9, adult: Code(s): E66.01 - Morbid (severe) obesity due to excess calories; Z68.41 - Body mass index [BMI] 40.0-44.9, adult Status: Acute (7) White coat syndrome with hypertension: Code(s): I10 - Essential (primary) hypertension Status: Acute (8) Essential hypertension: Code(s): I10 - Essential (primary) hypertension Status: Acute Plan 43 y/o female hx malignant brainstem neoplasm s/p radiation, admitted for 1 week of viral symptoms with cough and new shortness of breath. Reports that she had diarrhea prior to admission that resolved. White count improving Sepsis Acute hypoxic Respiratory Failure On 2L NC Wean as tolerated Continue Duonebs given wheezing Start steroids. Add flovent Consider outpatient PFT's Furosemide 40 daily ordered. Follow Mag and potassium Check ANGELA, CRP, ESR Pulmonary consult if not able to wean O2 Pneumonia Started on empiric Rocephin and Azithromycin. COVID/Flu/RSV negative 08/31 CTA showed 1. No pulmonary embolus. Sensitivity is mildly decreased by obesity and suboptimal contrast opacification. 2. Diffuse lung disease, likely atypical pneumonia. 3. Right lower lobe nodules measuring up to 7 mm, probably benign. Noncontrast low-dose chest CT is recommended in 6-12 months. 4. Mild right hilar lymphadenopathy, likely reactive. Plan Follow up Mycoplasma IgG & IgM, Legionella Urine ag Sputum culture Needs a follow up CT in 6-12 months as noted Chronic cough with water intermittently. Hx intubation and difficulty with tongue movements --Speech evaluated and symptoms improved with chin tuck Obesity Apnea link Outpatient sleep study HTN hx white coat hypertension Monitor, likely defer to outpatient Hx seizures Continue Keppra, diazepam Chronic pain Continued home percocet Movantik not avaible Chronic nausea since brain tumore --Zofran, promethazine prn Patient has been admitted as observation status. Time Spent With Patient Time: 58 minutes Subjective Date/time seen: 09/02/24 11:34 Interval history: Still with mild wheezing, chronic nausea. On 2L O2 Discharge pending O2 needs, wean off if possible Starting steroids and monitoring improvement Review of Systems Review of Systems: 12 systems were reviewed with pertinent positives and negatives per HPI. Except as documented in the HPI, all other systems were reviewed and are negative. Exam Narrative: Weight 125 kg BMI 44.5 General - Awake and alert. No acute distress Eyes - PERRLA, EOM intact ENT - No thrush, No erythema Neck - No noticeable or palpable swelling Lymph Nodes - No lymphadenopathy Cardiovascular - RRR no m/r/g, no JVD Lungs: Clear to auscultation, Expriatory wheezing, use of accessory muscles, Skin - Skin warm and dry, no wounds or rashes Abdomen - Normal bowel sounds, abdomen soft and nontender Extremities - No edema, cyanosis or clubbing Musculoskeletal - 5/5 strength, normal range of motion, no swollen or erythematous joints. Neurological ? Alert and oriented x 3, CN 2-12 grossly intact. Psych: Normal mood and affect Objective Data Vital Signs Vital Signs: Vital Signs - 24 hr 09/01/24 14:00 09/01/24 14:44 09/01/24 14:49 Temperature 98.4 F Pulse Rate 73 74 70 Respiratory Rate 16 22 H 22 H Blood Pressure 147/80 H Pulse Oximetry 97 Oxygen Delivery Oxygen Flow Rate 09/01/24 17:25 09/01/24 20:00 09/01/24 21:10 Temperature Pulse Rate 85 76 Respiratory Rate Blood Pressure Pulse Oximetry 98 95 Oxygen Delivery Nasal Cannula Nasal Cannula Oxygen Flow Rate 2 2 09/01/24 21:10 09/01/24 21:17 09/01/24 21:38 Temperature 96.9 F L Pulse Rate 76 76 75 Respiratory Rate 20 20 22 H Blood Pressure 155/80 H Pulse Oximetry 98 Oxygen Delivery Oxygen Flow Rate 09/02/24 01:00 09/02/24 01:07 09/02/24 05:27 Temperature 97.0 F L Pulse Rate 82 84 83 Respiratory Rate 18 18 20 Blood Pressure 166/83 H Pulse Oximetry 93 Oxygen Delivery Oxygen Flow Rate 09/02/24 07:36 09/02/24 07:36 09/02/24 07:49 Temperature Pulse Rate 80 78 Respiratory Rate 18 18 Blood Pressure Pulse Oximetry 91 Oxygen Delivery Nasal Cannula Oxygen Flow Rate 2 09/02/24 08:00 09/02/24 08:39 Temperature Pulse Rate 85 Respiratory Rate Blood Pressure Pulse Oximetry 92 Oxygen Delivery Nasal Cannula Oxygen Flow Rate 2 Intake/Output Intake/Output: Intake & Output 08/30/24 08/31/24 09/01/24 09/02/24 23:59 23:59 23:59 23:59 Intake Total 300 2230 550 Balance 300 2230 550 Meds/Results Medications: Active Medications Generic Name Dose Route Start Last Admin Trade Name Freq PRN Reason Stop Dose Admin Acetaminophen 650 mg 08/31/24 16:41 Acetaminophen 325 Mg Tablet PO Q4H PRN Mild Pain (1-3) or Fever Albuterol/Ipratropium 3 ml 08/31/24 20:00 09/02/24 07:36 Ipratropium 0.5 Mg/Albuterol Sulfate 2.5 Mg Ampul.Neb 3 Ml INHALATION 3 ml Q6HRT BRISEYDA Administration Atorvastatin Calcium 20 mg 09/01/24 09:00 09/02/24 08:39 Atorvastatin 20 Mg Tablet PO 20 mg DAILY BRISEYDA Administration Benzonatate 200 mg 09/02/24 09:00 09/02/24 08:49 Benzonatate 100 Mg Capsule PO 200 mg TID BRISEYDA Administration Diazepam 10 mg 08/31/24 21:15 09/01/24 20:53 Diazepam (*Crx) 5 Mg Tablet PO 10 mg HS BRISEYDA Administration Enoxaparin Sodium 40 mg 09/01/24 09:00 09/02/24 08:40 Enoxaparin 40 Mg/0.4 Ml Syringe SUB-Q 40 mg Q12HR BRISEYDA Administration Furosemide 40 mg 09/01/24 09:00 09/02/24 08:39 Furosemide 40 Mg Tablet PO 40 mg DAILY BRISEYDA Administration Ceftriaxone Sodium 1 gm in 50 mls @ 100 mls/hr 09/01/24 12:00 09/01/24 12:55 Rocephin 1 Gm/Ns 50 Ml IVPB 100 mls/hr Q24H BRISEYDA Administration Azithromycin 500 mg in 250 mls @ 250 mls/hr 09/01/24 12:00 09/01/24 12:55 Zithromax IVPB 250 mls/hr Q24H BRISEYDA Administration Levetiracetam 1,500 mg 08/31/24 23:25 09/02/24 08:38 Levetiracetam 500 Mg Tablet PO 1,500 mg Q12HR BRISEYDA Administration Metoprolol Succinate 200 mg 09/01/24 09:00 09/02/24 08:39 Metoprolol Succinate Ext Rel 100 Mg Tabcr PO 200 mg DAILY BRISEYDA Administration Metoprolol Succinate 100 mg 09/02/24 17:00 Metoprolol Succinate Ext Rel 100 Mg Tabcr PO 1700 BRISEYDA Nicotine 1 patch 08/31/24 15:55 09/02/24 08:40 Nicotine (*Pbkc) 14 Mg Patch TRANSDERM 1 patch DAILY BRISEYDA Administration Ondansetron HCl 8 mg 09/02/24 13:00 Ondansetron Hcl Odt 4 Mg Tablet PO BID@1300,2200 BRISEYDA Oxycodone/Acetaminophen 1 - 2 tab 09/01/24 21:00 09/02/24 08:39 Oxycodone/Acetaminophen (*Crx) 10-325 Mg Tablet PO 1 tab QID BRISEYDA Administration Pantoprazole Sodium 40 mg 09/01/24 09:00 09/02/24 08:40 Pantoprazole 40 Mg Tablet PO 40 mg QAM BRISEYDA Administration Promethazine HCl 12.5 mg 08/31/24 16:41 Promethazine Hcl 25 Mg/Ml Ampul IV PUSH Q6H PRN Nausea Promethazine HCl 50 mg 09/02/24 09:00 09/02/24 08:40 Promethazine Hcl 25 Mg Tablet PO 50 mg BIDPC BRISEYDA Administration Senna/Docusate Sodium 1 tab 09/01/24 21:00 09/01/24 20:52 Senna/Docusate Sodium Tablet PO 1 tab HS BRISEYDA Administration Sertraline HCl 100 mg 08/31/24 21:20 09/01/24 20:52 Sertraline Hcl 50 Mg Tablet PO 100 mg HS BRISEYDA Administration Radiology Results: ITS Impressions Chest X-Ray 08/31/24 15:09 IMPRESSION: 1. Mild airspace opacities in the lower lung zones, consistent with atelectasis versus pneumonia. Chest CTA 08/31/24 23:10 IMPRESSION: 1. No pulmonary embolus. Sensitivity is mildly decreased by obesity and suboptimal contrast opacification. 2. Diffuse lung disease, likely atypical pneumonia. 3. Right lower lobe nodules measuring up to 7 mm, probably benign. Noncontrast low-dose chest CT is recommended in 6-12 months. 4. Mild right hilar lymphadenopathy, likely reactive. Quality VTE Prophylaxis VTE prophylaxis: pharmacologic ordered (Lovenox 40 mg subQ q.12h) Hospitalist [facility] Advance Care Plan I have confirmed that the patient's Advanced Care Plan is present, code status is documented, or surrogate decision maker is listed in patient medical record.: Yes Medication Reconciliation I have utilized all available resources to obtain, update and review the patients current medications (includes all prescriptions, OTC, herbals, cannabis, and nutritional supplements).: Yes
[2024-09-02] MEDS: AZITHROMYCIN 500 MG/NS 250 ML 500 MG/250 ML BAG 250 MG IVPB (12:02)
[2024-09-02] MEDS: ONDANSETRON HCL ODT 4 MG TABLET 8 MG PO ×2 (12:03→22:22)
[2024-09-02 12:30] LABS: Basophils Percent Auto 0.3 % (0.2-1.2); Eosinophils Absolute Auto 0.4 K/mm3 (0-0.3); Eosinophils Percent Auto 2.7 % (0-4.4); Hemoglobin 14.3 g/dL (12.0-15.0); Immature Granulocyte Absolute 0.03 K/mm3 (0.00-0.031); Immature Granulocyte Percent A 0.2 % (0-0.5); Lymphocytes Absolute Auto 1.73 K/mm3 (0.9-3.2); Lymphocytes Percent Auto 13.6 % (18.3-44.2); Mean Corpuscular HGB Conc 33.3 g/dl (32-36); Mean Corpuscular Hemoglobin 30.7 pg (26-34); Mean Corpuscular Volume 92.3 fl (80-100); Mean Platelet Volume 8.9 fl (7.4-10.4); Monocytes Absolute Auto 0.8 K/mm3 (0.1-0.6); Monocytes Percent Auto 6.6 % (2.6-8.5); Neutrophils Absolute Auto 9.8 K/mm3 (1.3-6.7); Neutrophils Percent Auto 76.6 % (45.5-73.1); Platelet Count Result 258 k/mm3 (150-375); Red Blood Count 4.66 M/mm3 (4.2-5.4); Red Cell Distribution Width 13.3 % (11.5-14.5); White Blood Count 12.7 K/mm3 (4.5-10.0)
[2024-09-02 12:55] LABS: Erythrocyte Sedimentation Rate 40 mm/hr (0-20)
[2024-09-02 13:05] LABS: Alanine Aminotransferase 15 U/L (6-35); Albumin Level 4.1 g/dL (3.5-5.1); Alkaline Phosphatase 68 U/L (38-126); Anion Gap 4 mmol/L (4-12); Aspartate Amino Transferase 21 U/L (14-36); Bilirubin,Total 0.6 mg/dL (0.2-1.3); Blood Urea Nitrogen 6 mg/dL (7-17); CRP 13.1 mg/dL (<1.0); Calcium 8.9 mg/dL (8.4-10.2); Carbon Dioxide 30 mmol/L (22-30); Chloride 103 mmol/L (98-107); Estimated CRCL calculation 162 ml/min; Estimated Glomerular Filt Rate > 60; Glucose 106 mg/dL (65-110); Magnesium 2.2 mg/dL (1.6-2.3); Potassium 3.9 mmol/L (3.4-5.0); Sodium 137 mmol/L (137-145)
[2024-09-02] MEDS: METOPROLOL SUCCINATE EXT REL 100 MG TABCR PO (17:03)
[2024-09-02] MEDS: FLUTICASONE PROP 110 MCG INHALER 12 GM (*SP) 2 PUFF INHALATION (21:17)
[2024-09-02] MEDS: diazePAM (*CRX) 5 MG TABLET 10 MG PO (22:22)
[2024-09-02] MEDS: SENNA/DOCUSATE SODIUM TABLET 1 TAB PO (22:22)
[2024-09-02] MEDS: SERTRALINE HCL 50 MG TABLET 100 MG PO (22:22)
--- NOTE | 2024-09-02 22:29 | PCRCNOTE ---
Patient states she is having a sleep study completed in a few months as well as a study for seizure activity. Patient refused overnight inpatient study.
[2024-09-03] VITALS (12 sets, daily range): BP systolic 143–163; BP diastolic 74–96; PULSE 74–86; RESP 18–20; TEMP 36.1–36.2; O2SAT 94–96
[2024-09-03] MEDS: IPRATROPIUM 0.5 MG/ALBUTEROL SULFATE 2.5 MG AMPUL.NEB 3 ML INHALATION ×3 (01:44→12:53)
--- NOTE | 2024-09-03 09:06 | P.PNIM_ITS ---
Progress Note: A&P Assessment and Plan (1) Acute hypoxic respiratory failure: Code(s): J96.01 - Acute respiratory failure with hypoxia Status: Acute Assessment and Plan: Acute hypoxic Respiratory Failure On 2L NC. ESR 40. ANGELA pending. Wean as tolerated Continue Duonebs given wheezing --Started steroids 09/02. Change flovent to symbicort --Consider outpatient PFT's --Furosemide 40 daily ordered. Follow Mag and potassium --Pulmonary consult if not able to wean O2, but overall improving slowly Repeat chest xray 09/03 shows improving infiltrates (2) Pneumonia: Qualifiers: Laterality: bilateral Lung location: unspecified part of lung Pneumonia type: due to unspecified organism Qualified Code(s): J18.9 - Pneumonia, unspecified organism Code(s): J18.9 - Pneumonia, unspecified organism Status: Acute Assessment and Plan: Pneumonia Started on empiric Rocephin (09/01-present) and Azithromycin 500mg (09/01-09/03) COVID/Flu/RSV negative Community acquired pneumonia. Overall improving white count and x-ray improving but still with wheezing and shortness of breath with activity, though also improving. No oxygen at baseline. 08/31 CTA showed 1. No pulmonary embolus. Sensitivity is mildly decreased by obesity and suboptimal contrast opacification. 2. Diffuse lung disease, likely atypical pneumonia. 3. Right lower lobe nodules measuring up to 7 mm, probably benign. Noncontrast low-dose chest CT is recommended in 6-12 months. 4. Mild right hilar lymphadenopathy, likely reactive. 09/03 Chest x-ray Scattered bilateral patchy infiltrates, more prominent in the lower lung zones, mildly improved since 08/31/2024. Heart size is within normal range. No pulmonary vascular congestion or pneumothorax. Plan Follow up Mycoplasma IgG & IgM, Legionella Urine ag Sputum culture contamination Needs a follow up CT in 6-12 months as noted Checking strep and mono given sore throat, though less likely, no exudates (3) Sepsis: Qualifiers: Acute respiratory failure type: with hypoxia Sepsis acute organ dysfunction status: with acute organ dysfunction Sepsis type: sepsis due to unspecified organism Severe sepsis acute organ dysfunction type: acute respiratory failure Severe sepsis shock status: without septic shock Qualified Code(s): A41.9 - Sepsis, unspecified organism; R65.20 - Severe sepsis without septic shock; J96.01 - Acute respiratory failure with hypoxia Code(s): A41.9 - Sepsis, unspecified organism Status: Acute Assessment and Plan: Treatment of pneumonia as noted (4) Suspected pulmonary aspiration of food: Code(s): R09.89 - Other specified symptoms and signs involving the circulatory and respiratory systems Status: Acute (5) Snoring: Code(s): R06.83 - Snoring Status: Acute (6) Morbid obesity with BMI of 40.0-44.9, adult: Code(s): E66.01 - Morbid (severe) obesity due to excess calories; Z68.41 - Body mass index [BMI] 40.0-44.9, adult Status: Acute Assessment and Plan: Obesity Apnea link 09/03 Outpatient sleep study Desaturation screen in am (7) White coat syndrome with hypertension: Code(s): I10 - Essential (primary) hypertension Status: Acute (8) Essential hypertension: Code(s): I10 - Essential (primary) hypertension Status: Acute Assessment and Plan: hx white coat hypertension Has been 140's-180's, but overall improving with respiratory distress Steroids also elevate blood pressures --Monitor --Improving with furosemide 40mg daily (9) Cough: Code(s): R05.9 - Cough, unspecified Status: Acute Assessment and Plan: Chronic cough with water intermittently. Hx intubation and difficulty with tongue movements --Speech evaluated and symptoms improved with chin tuck Plan Other medical conditions stable Hx seizures Continue Keppra, diazepam Chronic pain Continued home percocet Movantik not available Chronic nausea since brain tumore --Zofran, promethazine prn Time Spent With Patient Time: 58 minutes Subjective Date/time seen: 09/03/24 09:06 Interval history: Still with mild wheezing, nausea slightly improved. Feels shortness of breath with activity improving 96% On 2L O2. White count and x-ray improving Throat sore, mildly red Sputum culture, ANGELA, mycoplasma/legionella pending. 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 She also reported diarrhea that has since resolved. Flu/COVID/RSV were negative. Sent labs for legionella, mycoplasma, pending. She was started on empiric ceftriaxone and azithromycin, and duonebs. Continued wheezing and oxygen requirement so started prednisone 09/02. Sputum culture sent but contaminated X-ray 09/03 improving. Overall improving white count and imaging 08/31 CT FINDINGS: There are scattered groundglass opacities in all lobes. There are 7 mm, 6 mm, and 4 mm nodules in right lower lobe. No pleural effusion. The heart size is normal. No pericardial effusion. There is no pulmonary embolus. There is mild right hilar lymphadenopathy. There are changes of cholecystectomy. There is mild cervical and thoracic spondylosis. IMPRESSION: 1. No pulmonary embolus. Sensitivity is mildly decreased by obesity and suboptimal contrast opacification. 2. Diffuse lung disease, likely atypical pneumonia. 3. Right lower lobe nodules measuring up to 7 mm, probably benign. Noncontrast low-dose chest CT is recommended in 6-12 months. 4. Mild right hilar lymphadenopathy, likely reactive. Review of Systems Review of Systems: 12 systems were reviewed with pertinent positives and negatives per HPI. Except as documented in the HPI, all other systems were reviewed and are negative. Exam Narrative: Weight 125 kg BMI 44.5 General - Awake and alert. No acute distress Eyes - PERRLA, EOM intact ENT - No thrush, No erythema Neck - No noticeable or palpable swelling Lymph Nodes - No lymphadenopathy Cardiovascular - RRR no m/r/g, no JVD Lungs: Clear to auscultation, Expiratory wheezing, use of accessory muscles, Skin - Skin warm and dry, no wounds or rashes Abdomen - Normal bowel sounds, abdomen soft and nontender Extremities - No edema, cyanosis or clubbing Musculoskeletal - 5/5 strength, normal range of motion, no swollen or erythematous joints. Neurological ? Alert and oriented x 3, CN 2-12 grossly intact. Psych: Normal mood and affect Objective Data Vital Signs Vital Signs: Vital Signs - 24 hr 09/02/24 13:53 09/02/24 14:00 09/02/24 14:02 Temperature 98.1 F Pulse Rate 83 87 75 Respiratory Rate 18 18 18 Blood Pressure 145/86 H Pulse Oximetry 93 Oxygen Delivery Oxygen Flow Rate 09/02/24 17:03 09/02/24 20:00 09/02/24 20:26 Temperature Pulse Rate 85 81 Respiratory Rate 18 Blood Pressure Pulse Oximetry 95 Oxygen Delivery Nasal Cannula Oxygen Flow Rate 2 09/02/24 20:26 09/02/24 20:36 09/02/24 21:17 Temperature Pulse Rate 81 88 75 Respiratory Rate 18 18 Blood Pressure Pulse Oximetry 95 Oxygen Delivery Nasal Cannula Oxygen Flow Rate 2 09/02/24 22:00 09/03/24 01:45 09/03/24 01:51 Temperature 97.5 F L Pulse Rate 81 80 74 Respiratory Rate 20 18 18 Blood Pressure 154/78 H Pulse Oximetry 95 Oxygen Delivery Oxygen Flow Rate 09/03/24 05:56 09/03/24 07:00 09/03/24 07:00 Temperature 96.9 F L Pulse Rate 78 85 85 Respiratory Rate 18 18 18 Blood Pressure 143/74 H Pulse Oximetry 96 96 Oxygen Delivery Nasal Cannula Oxygen Flow Rate 2 09/03/24 07:10 Temperature Pulse Rate 82 Respiratory Rate 18 Blood Pressure Pulse Oximetry Oxygen Delivery Oxygen Flow Rate Intake/Output Intake/Output: Intake & Output 08/31/24 09/01/24 09/02/24 09/03/24 23:59 23:59 23:59 23:59 Intake Total 300 2530 1030 550 Balance 300 2530 1030 550 Meds/Results Medications: Active Medications Generic Name Dose Route Start Last Admin Trade Name Freq PRN Reason Stop Dose Admin Acetaminophen 650 mg 08/31/24 16:41 Acetaminophen 325 Mg Tablet PO Q4H PRN Mild Pain (1-3) or Fever Albuterol/Ipratropium 3 ml 08/31/24 20:00 09/03/24 07:01 Ipratropium 0.5 Mg/Albuterol Sulfate 2.5 Mg Ampul.Neb 3 Ml INHALATION 3 ml Q6HRT BRISEYDA Administration Atorvastatin Calcium 20 mg 09/01/24 09:00 09/02/24 08:39 Atorvastatin 20 Mg Tablet PO 20 mg DAILY BRISEYDA Administration Benzonatate 200 mg 09/02/24 09:00 09/02/24 17:02 Benzonatate 100 Mg Capsule PO 200 mg TID BRISEYDA Administration Diazepam 10 mg 08/31/24 21:15 09/02/24 22:22 Diazepam (*Crx) 5 Mg Tablet PO 10 mg HS BRISEYDA Administration Enoxaparin Sodium 40 mg 09/01/24 09:00 09/02/24 22:21 Enoxaparin 40 Mg/0.4 Ml Syringe SUB-Q 40 mg Q12HR BRISEYDA Administration Fluticasone Propionate 2 puff 09/02/24 20:00 09/02/24 21:17 Fluticasone Prop 110 Mcg Inhaler 12 Gm (*Sp) INHALATION 2 puff Q12HRT BRISEYDA Administration Furosemide 40 mg 09/01/24 09:00 09/02/24 08:39 Furosemide 40 Mg Tablet PO 40 mg DAILY BRISEYDA Administration Ceftriaxone Sodium 1 gm in 50 mls @ 100 mls/hr 09/01/24 12:00 09/02/24 12:02 Rocephin 1 Gm/Ns 50 Ml IVPB 100 mls/hr Q24H BRISEYDA Administration Azithromycin 500 mg in 250 mls @ 250 mls/hr 09/01/24 12:00 09/02/24 12:02 Zithromax IVPB 250 mls/hr Q24H BRISEYDA Administration Levetiracetam 1,500 mg 08/31/24 23:25 09/02/24 22:22 Levetiracetam 500 Mg Tablet PO 1,500 mg Q12HR BRISEYDA Administration Metoprolol Succinate 200 mg 09/01/24 09:00 09/02/24 08:39 Metoprolol Succinate Ext Rel 100 Mg Tabcr PO 200 mg DAILY BRISEYDA Administration Metoprolol Succinate 100 mg 09/02/24 17:00 09/02/24 17:03 Metoprolol Succinate Ext Rel 100 Mg Tabcr PO 100 mg 1700 BRISEYDA Administration Nicotine 1 patch 08/31/24 15:55 09/02/24 08:40 Nicotine (*Pbkc) 14 Mg Patch TRANSDERM 1 patch DAILY BRISEYDA Administration Ondansetron HCl 8 mg 09/02/24 13:00 09/02/24 22:22 Ondansetron Hcl Odt 4 Mg Tablet PO 8 mg BID@1300,2200 BRISEYDA Administration Oxycodone/Acetaminophen 1 - 2 tab 09/01/24 21:00 09/02/24 22:22 Oxycodone/Acetaminophen (*Crx) 10-325 Mg Tablet PO 1 tab QID BRISEYDA Administration Pantoprazole Sodium 40 mg 09/01/24 09:00 09/02/24 08:40 Pantoprazole 40 Mg Tablet PO 40 mg QAM BRISEYDA Administration Prednisone 40 mg 09/03/24 08:00 Prednisone 20 Mg Tablet PO DAILY@0800 BRISEYDA Promethazine HCl 12.5 mg 08/31/24 16:41 Promethazine Hcl 25 Mg/Ml Ampul IV PUSH Q6H PRN Nausea Promethazine HCl 50 mg 09/02/24 09:00 09/02/24 17:02 Promethazine Hcl 25 Mg Tablet PO 50 mg BIDPC BRISEYDA Administration Senna/Docusate Sodium 1 tab 09/01/24 21:00 09/02/24 22:22 Senna/Docusate Sodium Tablet PO 1 tab HS BRISEYDA Administration Sertraline HCl 100 mg 08/31/24 21:20 09/02/24 22:22 Sertraline Hcl 50 Mg Tablet PO 100 mg HS BRISEYDA Administration Radiology Results: ITS Impressions Chest X-Ray 08/31/24 15:09 IMPRESSION: 1. Mild airspace opacities in the lower lung zones, consistent with atelectasis versus pneumonia. Chest CTA 08/31/24 23:10 IMPRESSION: 1. No pulmonary embolus. Sensitivity is mildly decreased by obesity and suboptimal contrast opacification. 2. Diffuse lung disease, likely atypical pneumonia. 3. Right lower lobe nodules measuring up to 7 mm, probably benign. Noncontrast low-dose chest CT is recommended in 6-12 months. 4. Mild right hilar lymphadenopathy, likely reactive. Labs Labs: Laboratory Results - last 24 hr 09/02/24 12:23 WBC 12.7 H RBC 4.66 Hgb 14.3 Hct 43.0 MCV 92.3 MCH 30.7 MCHC 33.3 RDW 13.3 Plt Count 258 MPV 8.9 Immature Gran % (Auto) 0.2 Neut % (Auto) 76.6 H Lymph % (Auto) 13.6 L [place] % (Auto) 6.6 Eos % (Auto) 2.7 Baso % (Auto) 0.3 Lymph # (Auto) 1.73 [place] # (Auto) 0.8 H Eos # (Auto) 0.4 H Baso # (Auto) 0.0 Abs Immat Gran (auto) 0.03 Absolute Neuts (auto) 9.8 H Absolute Nucleated RBC 0.000 Nucleated RBC % 0.0 ESR 40 H Sodium 137 Potassium 3.9 Chloride 103 Carbon Dioxide 30 Anion Gap 4 BUN 6 L Creatinine 0.50 L Estim Creat Clear Calc 162 Estimated GFR > 60 Glucose 106 Calcium 8.9 Magnesium 2.2 Total Bilirubin 0.6 AST 21 ALT 15 Alkaline Phosphatase 68 C-Reactive Protein 13.1 H Total Protein 8.0 Albumin 4.1 Quality VTE Prophylaxis VTE prophylaxis: pharmacologic ordered (Lovenox 40 mg subQ q.12h) Hospitalist MIPS Advance Care Plan I have confirmed that the patient's Advanced Care Plan is present, code status is documented, or surrogate decision maker is listed in patient medical record.: Yes Medication Reconciliation I have utilized all available resources to obtain, update and review the patients current medications (includes all prescriptions, OTC, herbals, cannabis, and nutritional supplements).: Yes
[2024-09-03] MEDS: oxyCODONE/ACETAMINOPHEN (*CRX) 10-325 MG TABLET PO ×4 (09:49→21:22)
[2024-09-03] MEDS: BENZONATATE 100 MG CAPSULE 200 MG PO ×3 (09:49→17:28)
[2024-09-03] MEDS: ATORVASTATIN 20 MG TABLET PO (09:49)
[2024-09-03] MEDS: levETIRAcetam 500 MG TABLET 1500 MG PO ×2 (09:49→21:21)
[2024-09-03] MEDS: PROMETHAZINE HCL 25 MG TABLET 50 MG PO ×2 (09:50→17:29)
[2024-09-03] MEDS: FUROSEMIDE 40 MG TABLET PO (09:50)
[2024-09-03] MEDS: predniSONE 20 MG TABLET 40 MG PO (09:50)
[2024-09-03] MEDS: METOPROLOL SUCCINATE EXT REL 100 MG TABCR 200 MG PO (09:50)
[2024-09-03] MEDS: PANTOPRAZOLE 40 MG TABLET PO (09:50)
[2024-09-03] MEDS: NICOTINE (*PBKC) 14 MG PATCH 1 PATCH TRANSDERM (09:57)
[2024-09-03] MEDS: FLUTICASONE PROP 110 MCG INHALER 12 GM (*SP) 2 PUFF INHALATION (09:57)
[2024-09-03] MEDS: ENOXAPARIN 40 MG/0.4 ML SYRINGE SUB-Q ×2 (09:57→21:27)
[2024-09-03] MEDS: AZITHROMYCIN 500 MG/NS 250 ML 500 MG/250 ML BAG 250 MG IVPB (12:39)
[2024-09-03] MEDS: ONDANSETRON HCL ODT 4 MG TABLET 8 MG PO ×2 (12:44→21:26)
[2024-09-03 13:23] LABS: Monoscreen Negative (Negative); Negative Monotest Control Negative (Negative); Positive Monotest Control Positive (Positive)
[2024-09-03 15:17] LABS: Strep Group A RT-PCR NOT DETECTED (Negative)
[2024-09-03] MEDS: METOPROLOL SUCCINATE EXT REL 100 MG TABCR PO (18:04)
[2024-09-03] MEDS: diazePAM (*CRX) 5 MG TABLET 10 MG PO (21:21)
[2024-09-03] MEDS: SERTRALINE HCL 50 MG TABLET 100 MG PO (21:21)
[2024-09-04] VITALS (12 sets, daily range): BP systolic 144–151; BP diastolic 74–85; PULSE 73–84; RESP 16–20; TEMP 36.7–37.1; O2SAT 91–95
--- NOTE | 2024-09-04 01:08 | PCRCNOTE ---
Patient on overnight oximetry study. No nebulizer treatment given at this time.
[2024-09-04] MEDS: IPRATROPIUM 0.5 MG/ALBUTEROL SULFATE 2.5 MG AMPUL.NEB 3 ML INHALATION ×4 (04:35→20:12)
[2024-09-04 06:51] LABS: Basophils Absolute Auto 0.1 K/mm3 (0.0-0.1); Basophils Percent Auto 0.4 % (0.2-1.2); Eosinophils Absolute Auto 0.1 K/mm3 (0-0.3); Eosinophils Percent Auto 0.8 % (0-4.4); Hematocrit 46.2 % (37.0-47.0); Hemoglobin 14.7 g/dL (12.0-15.0); Immature Granulocyte Absolute 0.06 K/mm3 (0.00-0.031); Immature Granulocyte Percent A 0.4 % (0-0.5); Lymphocytes Absolute Auto 3.39 K/mm3 (0.9-3.2); Lymphocytes Percent Auto 21.7 % (18.3-44.2); Mean Corpuscular HGB Conc 31.8 g/dl (32-36); Mean Corpuscular Hemoglobin 30.3 pg (26-34); Mean Corpuscular Volume 95.3 fl (80-100); Mean Platelet Volume 9.1 fl (7.4-10.4); Monocytes Percent Auto 6.3 % (2.6-8.5); Neutrophils Percent Auto 70.4 % (45.5-73.1); Platelet Count Result 320 k/mm3 (150-375); Red Blood Count 4.85 M/mm3 (4.2-5.4); Red Cell Distribution Width 13.1 % (11.5-14.5); White Blood Count 15.6 K/mm3 (4.5-10.0)
[2024-09-04 07:02] LABS: Anion Gap 5 mmol/L (4-12); Blood Urea Nitrogen 10 mg/dL (7-17); Calcium 9.4 mg/dL (8.4-10.2); Carbon Dioxide 33 mmol/L (22-30); Chloride 103 mmol/L (98-107); Estimated CRCL calculation 137 ml/min; Estimated Glomerular Filt Rate > 60; Glucose 97 mg/dL (65-110); Sodium 141 mmol/L (137-145)
[2024-09-04] MEDS: FLUTICASONE/SALMETEROL 115-21 MCG INHALER 1 PUFF 2 PUFF INHALATION ×2 (07:36→20:12)
[2024-09-04] MEDS: predniSONE 20 MG TABLET 40 MG PO (09:23)
[2024-09-04] MEDS: FUROSEMIDE 40 MG TABLET PO (09:23)
[2024-09-04] MEDS: oxyCODONE/ACETAMINOPHEN (*CRX) 10-325 MG TABLET PO ×4 (09:23→21:22)
[2024-09-04] MEDS: BENZONATATE 100 MG CAPSULE 200 MG PO (09:23)
[2024-09-04] MEDS: ENOXAPARIN 40 MG/0.4 ML SYRINGE SUB-Q ×2 (09:23→21:23)
[2024-09-04] MEDS: NICOTINE (*PBKC) 14 MG PATCH 1 PATCH TRANSDERM (09:23)
[2024-09-04] MEDS: ATORVASTATIN 20 MG TABLET PO (09:24)
[2024-09-04] MEDS: PANTOPRAZOLE 40 MG TABLET PO (09:24)
[2024-09-04] MEDS: PROMETHAZINE HCL 25 MG TABLET 50 MG PO ×2 (09:24→17:08)
[2024-09-04] MEDS: METOPROLOL SUCCINATE EXT REL 100 MG TABCR 200 MG PO (09:24)
[2024-09-04] MEDS: levETIRAcetam 500 MG TABLET 1500 MG PO ×2 (09:24→21:21)
--- NOTE | 2024-09-04 11:55 | P.PNIM_ITS ---
Progress Note: A&P Assessment and Plan (1) Acute hypoxic respiratory failure: Code(s): J96.01 - Acute respiratory failure with hypoxia Status: Acute Assessment and Plan: Acute hypoxic Respiratory Failure On 2L NC. ESR 40. ANGELA pending. Wean as tolerated Continue Duonebs given wheezing --Started steroids 09/02. Change flovent to symbicort --Consider outpatient PFT's --Furosemide 40 daily ordered. Follow Mag and potassium --Pulmonary consult if not able to wean O2, but overall improving slowly Repeat chest xray 09/03 shows improving infiltrates (2) Pneumonia: Qualifiers: Laterality: bilateral Lung location: unspecified part of lung Pneumonia type: due to unspecified organism Qualified Code(s): J18.9 - Pneumonia, unspecified organism Code(s): J18.9 - Pneumonia, unspecified organism Status: Acute Assessment and Plan: Pneumonia Started on empiric Rocephin (09/01-present) and Azithromycin 500mg IVPB daily. COVID/Flu/RSV negative Community acquired pneumonia. Overall improving white count and x-ray improving but still with wheezing and shortness of breath with activity, though also improving. No oxygen at baseline. 08/31 CTA showed 1. No pulmonary embolus. Sensitivity is mildly decreased by obesity and suboptimal contrast opacification. 2. Diffuse lung disease, likely atypical pneumonia. 3. Right lower lobe nodules measuring up to 7 mm, probably benign. Noncontrast low-dose chest CT is recommended in 6-12 months. 4. Mild right hilar lymphadenopathy, likely reactive. 09/03 Chest x-ray Scattered bilateral patchy infiltrates, more prominent in the lower lung zones, mildly improved since 08/31/2024. Heart size is within normal range. No pulmonary vascular congestion or pneumothorax. Plan Follow up Mycoplasma IgG & IgM, Legionella Urine ag Sputum culture contamination Needs a follow up CT in 6-12 months as noted Checking strep and mono given sore throat, though less likely, no exudates (3) Sepsis: Qualifiers: Acute respiratory failure type: with hypoxia Sepsis acute organ dysfunction status: with acute organ dysfunction Sepsis type: sepsis due to unspecified organism Severe sepsis acute organ dysfunction type: acute respiratory failure Severe sepsis shock status: without septic shock Qualified Code(s): A41.9 - Sepsis, unspecified organism; R65.20 - Severe sepsis without septic shock; J96.01 - Acute respiratory failure with hypoxia Code(s): A41.9 - Sepsis, unspecified organism Status: Acute Assessment and Plan: * Treatment of pneumonia as noted (4) Morbid obesity with BMI of 40.0-44.9, adult: Code(s): E66.01 - Morbid (severe) obesity due to excess calories; Z68.41 - Body mass index [BMI] 40.0-44.9, adult Status: Acute Assessment and Plan: Obesity Apnea link 09/03 Outpatient sleep study Desaturation screen in am (5) White coat syndrome with hypertension: Code(s): I10 - Essential (primary) hypertension Status: Acute (6) Essential hypertension: Code(s): I10 - Essential (primary) hypertension Status: Acute Assessment and Plan: hx white coat hypertension Has been 140's-160's, but overall improving with respiratory distress Steroids also elevate blood pressures --Monitor --Improving with furosemide 40mg daily (7) Cough: Code(s): R05.9 - Cough, unspecified Status: Acute Assessment and Plan: Chronic cough with water intermittently. Hx intubation and difficulty with tongue movements --Speech evaluated and symptoms improved with chin tuck --Added Mucinex 600 mg PO BID. Plan Other medical conditions stable Hx seizures Continue Keppra, diazepam Chronic pain Continued home percocet Movantik not available Chronic nausea since brain tumore --Zofran, promethazine prn Subjective Date/time seen: 09/04/24 11:55 Interval history: Patient reports shortness of breath at times. Patient reports cough with yellow green sputum. Patient reports headache is a 7 , frequent, and throbbing in the back of her head. Patient denies chest pain and palpitations. Review of Systems Review of Systems: All systems reviewed & are unremarkable except as noted in HPI and below Exam Const: General: no acute distress and uncomfortable Resp: Auscultation: wheezes expiratory wheezes and diminished lung sounds Cardio: Rate: regular rate Rhythm: regular rhythm Skin: General skin exam: no rashes or lesions noted Neuro: Speech: normal speech Extrem: General: no pedal edema Psych: Mental Status: mental status grossly normal Affect: normal affect Objective Data Vital Signs Vital Signs: Vital Signs - 24 hr 09/03/24 12:53 09/03/24 13:03 09/03/24 14:00 Temperature 97.0 F L Pulse Rate 86 85 84 Respiratory Rate 20 20 18 Blood Pressure 151/96 H Pulse Oximetry 95 Oxygen Delivery Oxygen Flow Rate Fraction of Inspired Oxygen 09/03/24 20:00 09/03/24 22:14 09/03/24 23:00 Temperature 97.2 F L Pulse Rate 75 Respiratory Rate 18 Blood Pressure 163/95 H Pulse Oximetry 94 96 96 Oxygen Delivery Nasal Cannula Room Air Oxygen Flow Rate 2 Fraction of Inspired Oxygen 09/04/24 04:35 09/04/24 06:00 09/04/24 07:34 Temperature 98.7 F Pulse Rate 73 77 Respiratory Rate 20 16 Blood Pressure 144/74 H Pulse Oximetry 94 95 Oxygen Delivery Nasal Cannula Oxygen Flow Rate 2 Fraction of Inspired Oxygen 28 09/04/24 07:34 09/04/24 07:45 Temperature Pulse Rate 76 80 Respiratory Rate 18 18 Blood Pressure Pulse Oximetry Oxygen Delivery Oxygen Flow Rate Fraction of Inspired Oxygen Intake/Output Intake/Output: Intake & Output 09/01/24 09/02/24 09/03/24 09/04/24 23:59 23:59 23:59 23:59 Intake Total 2530 1330 1630 680 Balance 2530 1330 1630 680 Meds/Results Medications: Active Medications Generic Name Dose Route Start Last Admin Trade Name Freq PRN Reason Stop Dose Admin Acetaminophen 650 mg 08/31/24 16:41 Acetaminophen 325 Mg Tablet PO Q4H PRN Mild Pain (1-3) or Fever Albuterol/Ipratropium 3 ml 08/31/24 20:00 09/04/24 07:34 Ipratropium 0.5 Mg/Albuterol Sulfate 2.5 Mg Ampul.Neb 3 Ml INHALATION 3 ml Q6HRT BRISEYDA Administration Atorvastatin Calcium 20 mg 09/01/24 09:00 09/04/24 09:24 Atorvastatin 20 Mg Tablet PO 20 mg DAILY BRISEYDA Administration Diazepam 10 mg 08/31/24 21:15 09/03/24 21:21 Diazepam (*Crx) 5 Mg Tablet PO 10 mg HS BRISEYDA Administration Enoxaparin Sodium 40 mg 09/01/24 09:00 09/04/24 09:23 Enoxaparin 40 Mg/0.4 Ml Syringe SUB-Q 40 mg Q12HR BRISEYDA Administration Furosemide 40 mg 09/01/24 09:00 09/04/24 09:23 Furosemide 40 Mg Tablet PO 40 mg DAILY BRISEYDA Administration Guaifenesin 600 mg 09/04/24 11:55 Guaifenesin 12 Hr 600 Mg Tabcr PO 09/11/24 11:54 Q12HR BRISEYDA Ceftriaxone Sodium 1 gm in 50 mls @ 100 mls/hr 09/01/24 12:00 09/03/24 12:39 Rocephin 1 Gm/Ns 50 Ml IVPB 100 mls/hr Q24H BRISEYDA Administration Azithromycin 500 mg in 250 mls @ 250 mls/hr 09/01/24 12:00 09/03/24 12:39 Zithromax IVPB 250 mls/hr Q24H BRISEYDA Administration Levetiracetam 1,500 mg 08/31/24 23:25 09/04/24 09:24 Levetiracetam 500 Mg Tablet PO 1,500 mg Q12HR BRISEYDA Administration Metoprolol Succinate 200 mg 09/01/24 09:00 09/04/24 09:24 Metoprolol Succinate Ext Rel 100 Mg Tabcr PO 200 mg DAILY BRISEYDA Administration Metoprolol Succinate 100 mg 09/02/24 17:00 09/03/24 18:04 Metoprolol Succinate Ext Rel 100 Mg Tabcr PO 100 mg 1700 BRISEYDA Administration Nicotine 1 patch 08/31/24 15:55 09/04/24 09:23 Nicotine (*Pbkc) 14 Mg Patch TRANSDERM 1 patch DAILY BRISEYDA Administration Ondansetron HCl 8 mg 09/02/24 13:00 09/03/24 21:26 Ondansetron Hcl Odt 4 Mg Tablet PO 8 mg BID@1300,2200 BRISEYDA Administration Oxycodone/Acetaminophen 1 - 2 tab 09/01/24 21:00 09/04/24 09:23 Oxycodone/Acetaminophen (*Crx) 10-325 Mg Tablet PO 2 tab QID BRISEYDA Administration Pantoprazole Sodium 40 mg 09/01/24 09:00 09/04/24 09:24 Pantoprazole 40 Mg Tablet PO 40 mg QAM BRISEYDA Administration Prednisone 40 mg 09/03/24 08:00 09/04/24 09:23 Prednisone 20 Mg Tablet PO 40 mg DAILY@0800 BRISEYDA Administration Promethazine HCl 12.5 mg 08/31/24 16:41 Promethazine Hcl 25 Mg/Ml Ampul IV PUSH Q6H PRN Nausea Promethazine HCl 50 mg 09/02/24 09:00 09/04/24 09:24 Promethazine Hcl 25 Mg Tablet PO 50 mg BIDPC BRISEYDA Administration Saccharomyces Boulardii 250 mg 09/04/24 17:00 Saccharomyces Boulardii 250 Mg Capsule PO 09/11/24 16:59 BID BRISEYDA Fluticasone/Salmeterol 2 puff 09/03/24 20:00 09/04/24 07:36 Fluticasone/Salmeterol 115-21 Mcg Inhaler 1 Puff INHALATION 2 puff Q12HRT BRISEYDA Administration Senna/Docusate Sodium 1 tab 09/01/24 21:00 09/03/24 21:22 Senna/Docusate Sodium Tablet PO Not Given HS BRISEYDA Sertraline HCl 100 mg 08/31/24 21:20 09/03/24 21:21 Sertraline Hcl 50 Mg Tablet PO 100 mg HS BRISEYDA Administration Radiology Results: ITS Impressions Chest CTA 08/31/24 23:10 IMPRESSION: 1. No pulmonary embolus. Sensitivity is mildly decreased by obesity and suboptimal contrast opacification. 2. Diffuse lung disease, likely atypical pneumonia. 3. Right lower lobe nodules measuring up to 7 mm, probably benign. Noncontrast low-dose chest CT is recommended in 6-12 months. 4. Mild right hilar lymphadenopathy, likely reactive. Chest X-Ray 09/03/24 14:09 IMPRESSION: Patchy bilateral mild pulmonary infiltrate, more prominent in the lower lung zones, mildly improved since 08/31/2024 Labs Labs: Laboratory Results - last 24 hr 09/01/24 09/03/24 09/04/24 06:34 14:31 06:28 WBC 15.6 H RBC 4.85 Hgb 14.7 Hct 46.2 MCV 95.3 MCH 30.3 MCHC 31.8 L RDW 13.1 Plt Count 320 MPV 9.1 Immature Gran % (Auto) 0.4 Neut % (Auto) 70.4 Lymph % (Auto) 21.7 [place] % (Auto) 6.3 Eos % (Auto) 0.8 Baso % (Auto) 0.4 Lymph # (Auto) 3.39 H [place] # (Auto) 1.0 H Eos # (Auto) 0.1 Baso # (Auto) 0.1 Abs Immat Gran (auto) 0.06 H Absolute Neuts (auto) 11.0 H Absolute Nucleated RBC 0.000 Nucleated RBC % 0.0 Sodium 141 Potassium 4.0 Chloride 103 Carbon Dioxide 33 H Anion Gap 5 BUN 10 Creatinine 0.60 L Estim Creat Clear Calc 137 Estimated GFR > 60 Glucose 97 Calcium 9.4 Monoscreen Negative Group A Strep (PCR) Not detected Quality VTE Prophylaxis VTE prophylaxis: pharmacologic ordered (Lovenox 40 mg subQ q.12h)
[2024-09-04] MEDS: guaiFENesin 12 HR 600 MG TABCR PO ×2 (12:42→21:21)
[2024-09-04] MEDS: AZITHROMYCIN 500 MG/NS 250 ML 500 MG/250 ML BAG 250 MG IVPB (12:42)
[2024-09-04] MEDS: ONDANSETRON HCL ODT 4 MG TABLET 8 MG PO ×2 (12:44→21:21)
[2024-09-04] MEDS: METOPROLOL SUCCINATE EXT REL 100 MG TABCR PO (16:09)
[2024-09-04] MEDS: SACCHAROMYCES BOULARDII 250 MG CAPSULE PO (16:10)
[2024-09-04 17:23] LABS: Pneumococcal Antigen Urine NOT DETECTED
[2024-09-04] MEDS: diazePAM (*CRX) 5 MG TABLET 10 MG PO (21:22)
[2024-09-04] MEDS: SERTRALINE HCL 50 MG TABLET 100 MG PO (21:22)
[2024-09-05] VITALS (20 sets, daily range): BP systolic 151–166; BP diastolic 72–90; PULSE 69–96; RESP 16–20; TEMP 36.1–36.9; O2SAT 86–95
[2024-09-05] MEDS: IPRATROPIUM 0.5 MG/ALBUTEROL SULFATE 2.5 MG AMPUL.NEB 3 ML INHALATION ×4 (01:12→19:43)
[2024-09-05 04:08] LABS: ANA Cascade Screen NEGATIVE (NEGATIVE)
[2024-09-05 06:26] LABS: Basophils Absolute Auto 0.1 K/mm3 (0.0-0.1); Basophils Percent Auto 0.5 % (0.2-1.2); Eosinophils Absolute Auto 0.1 K/mm3 (0-0.3); Eosinophils Percent Auto 0.7 % (0-4.4); Hematocrit 42.3 % (37.0-47.0); Hemoglobin 13.4 g/dL (12.0-15.0); Immature Granulocyte Absolute 0.07 K/mm3 (0.00-0.031); Immature Granulocyte Percent A 0.5 % (0-0.5); Lymphocytes Absolute Auto 3.63 K/mm3 (0.9-3.2); Lymphocytes Percent Auto 23.4 % (18.3-44.2); Mean Corpuscular HGB Conc 31.7 g/dl (32-36); Mean Corpuscular Volume 94.8 fl (80-100); Monocytes Absolute Auto 0.9 K/mm3 (0.1-0.6); Monocytes Percent Auto 5.5 % (2.6-8.5); Neutrophils Absolute Auto 10.8 K/mm3 (1.3-6.7); Neutrophils Percent Auto 69.4 % (45.5-73.1); Platelet Count Result 318 k/mm3 (150-375); Red Blood Count 4.46 M/mm3 (4.2-5.4); White Blood Count 15.5 K/mm3 (4.5-10.0)
[2024-09-05 06:39] LABS: Anion Gap 2 mmol/L (4-12); Blood Urea Nitrogen 12 mg/dL (7-17); Calcium 8.8 mg/dL (8.4-10.2); Carbon Dioxide 36 mmol/L (22-30); Chloride 102 mmol/L (98-107); Estimated CRCL calculation 137 ml/min; Estimated Glomerular Filt Rate > 60; Glucose 93 mg/dL (65-110); Potassium 3.8 mmol/L (3.4-5.0); Sodium 140 mmol/L (137-145)
[2024-09-05] MEDS: FLUTICASONE/SALMETEROL 115-21 MCG INHALER 1 PUFF 2 PUFF INHALATION ×2 (07:00→19:44)
[2024-09-05] MEDS: PROMETHAZINE HCL 25 MG TABLET 50 MG PO ×2 (09:49→17:35)
[2024-09-05] MEDS: METOPROLOL SUCCINATE EXT REL 100 MG TABCR 200 MG PO (09:49)
[2024-09-05] MEDS: predniSONE 20 MG TABLET 40 MG PO (09:50)
[2024-09-05] MEDS: guaiFENesin 12 HR 600 MG TABCR PO ×2 (09:50→21:02)
[2024-09-05] MEDS: ATORVASTATIN 20 MG TABLET PO (09:50)
[2024-09-05] MEDS: SACCHAROMYCES BOULARDII 250 MG CAPSULE PO ×2 (09:50→17:35)
[2024-09-05] MEDS: levETIRAcetam 500 MG TABLET 1500 MG PO ×2 (09:50→21:01)
[2024-09-05] MEDS: PANTOPRAZOLE 40 MG TABLET PO (09:50)
[2024-09-05] MEDS: oxyCODONE/ACETAMINOPHEN (*CRX) 10-325 MG TABLET PO ×4 (09:51→21:38)
[2024-09-05] MEDS: FUROSEMIDE 40 MG TABLET PO (09:51)
[2024-09-05] MEDS: ENOXAPARIN 40 MG/0.4 ML SYRINGE SUB-Q ×2 (09:53→21:01)
[2024-09-05] MEDS: NICOTINE (*PBKC) 14 MG PATCH 1 PATCH TRANSDERM (09:53)
--- NOTE | 2024-09-05 10:51 | P.PNIM_ITS ---
Progress Note: A&P Assessment and Plan (1) Acute hypoxic respiratory failure: Code(s): J96.01 - Acute respiratory failure with hypoxia Status: Acute Assessment and Plan: Acute hypoxic Respiratory Failure On 2L NC. ESR 40. ANGELA pending. Wean as tolerated Continue Duonebs given wheezing --Started steroids 09/02. Change flovent to symbicort --Consider outpatient PFT's --Furosemide 40 mg daily ordered. Follow Mag and potassium --Pulmonary consult if not able to wean O2, but overall improving slowly Repeat chest xray 09/03 shows improving infiltrates (2) Pneumonia: Qualifiers: Laterality: bilateral Lung location: unspecified part of lung Pneumonia type: due to unspecified organism Qualified Code(s): J18.9 - Pneumonia, unspecified organism Code(s): J18.9 - Pneumonia, unspecified organism Status: Acute Assessment and Plan: Pneumonia Started on empiric Rocephin (09/01-present) and Azithromycin 500mg IVPB daily. COVID/Flu/RSV negative Community acquired pneumonia. Overall improving white count and x-ray improving but still with wheezing and shortness of breath with activity, though also improving. No oxygen at baseline. 08/31 CTA showed 1. No pulmonary embolus. Sensitivity is mildly decreased by obesity and suboptimal contrast opacification. 2. Diffuse lung disease, likely atypical pneumonia. 3. Right lower lobe nodules measuring up to 7 mm, probably benign. Noncontrast low-dose chest CT is recommended in 6-12 months. 4. Mild right hilar lymphadenopathy, likely reactive. 09/03 Chest x-ray Scattered bilateral patchy infiltrates, more prominent in the lower lung zones, mildly improved since 08/31/2024. Heart size is within normal range. No pulmonary vascular congestion or pneumothorax. Plan Follow up Mycoplasma IgG & IgM, Legionella Urine ag Sputum culture contamination Needs a follow up CT in 6-12 months as noted Checking strep and mono given sore throat, though less likely, no exudates (3) Sepsis: Qualifiers: Sepsis type: sepsis due to unspecified organism Sepsis acute organ dysfunction status: with acute organ dysfunction Severe sepsis acute organ dysfunction type: acute respiratory failure Acute respiratory failure type: with hypoxia Severe sepsis shock status: without septic shock Qualified Code(s): A41.9 - Sepsis, unspecified organism; R65.20 - Severe sepsis without septic shock; J96.01 - Acute respiratory failure with hypoxia Code(s): A41.9 - Sepsis, unspecified organism Status: Acute Assessment and Plan: * Treatment of pneumonia as noted (4) Morbid obesity with BMI of 40.0-44.9, adult: Code(s): E66.01 - Morbid (severe) obesity due to excess calories; Z68.41 - Body mass index [BMI] 40.0-44.9, adult Status: Acute Assessment and Plan: Obesity Apnea link 09/03 Outpatient sleep study (5) White coat syndrome with hypertension: Code(s): I10 - Essential (primary) hypertension Status: Acute Assessment and Plan: * Blood pressure 151/72 (6) Essential hypertension: Code(s): I10 - Essential (primary) hypertension Status: Acute Assessment and Plan: hx white coat hypertension Has been 140's-160's, but overall improving with respiratory distress Steroids also elevate blood pressures --Monitor --Improving with furosemide 40mg daily (7) Cough: Code(s): R05.9 - Cough, unspecified Status: Acute Assessment and Plan: Chronic cough with water intermittently. Hx intubation and difficulty with tongue movements --Speech evaluated and symptoms improved with chin tuck --Mucinex 600 mg PO BID. Plan Other medical conditions stable Hx seizures Continue Keppra, diazepam Chronic pain Continued home percocet Movantik not available Chronic nausea since brain tumore --Zofran, promethazine prn Subjective Date/time seen: 09/05/24 10:51 Interval history: Patient reports shortness of breath at times. Patient with bright yellow sputum. Denies chest pain or palpitations. Review of Systems Review of Systems: All systems reviewed & are unremarkable except as noted in HPI and below Exam Const: General: comfortable and no acute distress Resp: Auscultation: wheezes expiratory wheezes and diminished lung sounds Cardio: Rate: regular rate Rhythm: regular rhythm GI: GI Palp: Yes Soft to palpation Auscultation: normal bowel sounds Skin: General skin exam: no rashes or lesions noted Neuro: Speech: normal speech Extrem: General: no pedal edema Psych: Mental Status: mental status grossly normal Affect: normal affect Objective Data Vital Signs Vital Signs: Vital Signs - 24 hr 09/04/24 14:00 09/04/24 14:02 09/04/24 14:11 Temperature 98.0 F Pulse Rate 84 77 79 Respiratory Rate 18 18 18 Blood Pressure 150/85 H Pulse Oximetry 91 Oxygen Delivery Oxygen Flow Rate 09/04/24 20:00 09/04/24 20:15 09/04/24 20:15 Temperature Pulse Rate 77 Respiratory Rate 18 Blood Pressure Pulse Oximetry 93 93 Oxygen Delivery Nasal Cannula Nasal Cannula Oxygen Flow Rate 1 1 09/04/24 20:24 09/04/24 22:00 09/05/24 01:12 Temperature 98.6 F Pulse Rate 76 75 75 Respiratory Rate 20 16 20 Blood Pressure 151/83 H Pulse Oximetry 93 Oxygen Delivery Oxygen Flow Rate 09/05/24 01:19 09/05/24 06:00 09/05/24 07:00 Temperature 97.7 F Pulse Rate 77 77 91 Respiratory Rate 20 16 18 Blood Pressure 151/72 H Pulse Oximetry 94 95 Oxygen Delivery Nasal Cannula Oxygen Flow Rate 1 09/05/24 07:00 09/05/24 07:10 09/05/24 09:49 Temperature Pulse Rate 91 83 85 Respiratory Rate 18 20 Blood Pressure Pulse Oximetry Oxygen Delivery Oxygen Flow Rate Intake/Output Intake/Output: Intake & Output 09/02/24 09/03/24 09/04/24 09/05/24 23:59 23:59 23:59 23:59 Intake Total 1330 1930 960 840 Balance 1330 1930 960 840 Meds/Results Medications: Active Medications Generic Name Dose Route Start Last Admin Trade Name Freq PRN Reason Stop Dose Admin Acetaminophen 650 mg 08/31/24 16:41 Acetaminophen 325 Mg Tablet PO Q4H PRN Mild Pain (1-3) or Fever Albuterol/Ipratropium 3 ml 08/31/24 20:00 09/05/24 07:00 Ipratropium 0.5 Mg/Albuterol Sulfate 2.5 Mg Ampul.Neb 3 Ml INHALATION 3 ml Q6HRT BRISEYDA Administration Atorvastatin Calcium 20 mg 09/01/24 09:00 09/05/24 09:50 Atorvastatin 20 Mg Tablet PO 20 mg DAILY BRISEYDA Administration Diazepam 10 mg 08/31/24 21:15 09/04/24 21:22 Diazepam (*Crx) 5 Mg Tablet PO 10 mg HS BRISEYDA Administration Enoxaparin Sodium 40 mg 09/01/24 09:00 09/05/24 09:53 Enoxaparin 40 Mg/0.4 Ml Syringe SUB-Q 40 mg Q12HR BRISEYDA Administration Furosemide 40 mg 09/01/24 09:00 09/05/24 09:51 Furosemide 40 Mg Tablet PO 40 mg DAILY BRISEYDA Administration Guaifenesin 600 mg 09/04/24 11:55 09/05/24 09:50 Guaifenesin 12 Hr 600 Mg Tabcr PO 09/11/24 11:54 600 mg Q12HR BRISEYDA Administration Ceftriaxone Sodium 1 gm in 50 mls @ 100 mls/hr 09/01/24 12:00 09/04/24 12:42 Rocephin 1 Gm/Ns 50 Ml IVPB 100 mls/hr Q24H BRISEYDA Administration Azithromycin 500 mg in 250 mls @ 250 mls/hr 09/01/24 12:00 09/04/24 12:42 Zithromax IVPB 250 mls/hr Q24H BRISEYDA Administration Levetiracetam 1,500 mg 08/31/24 23:25 09/05/24 09:50 Levetiracetam 500 Mg Tablet PO 1,500 mg Q12HR BRISEYDA Administration Metoprolol Succinate 200 mg 09/01/24 09:00 09/05/24 09:49 Metoprolol Succinate Ext Rel 100 Mg Tabcr PO 200 mg DAILY BRISEYDA Administration Metoprolol Succinate 100 mg 09/02/24 17:00 09/04/24 16:09 Metoprolol Succinate Ext Rel 100 Mg Tabcr PO 100 mg 1700 BRISEYDA Administration Nicotine 1 patch 08/31/24 15:55 09/05/24 09:53 Nicotine (*Pbkc) 14 Mg Patch TRANSDERM 1 patch DAILY BRISEYDA Administration Ondansetron HCl 8 mg 09/02/24 13:00 09/04/24 21:21 Ondansetron Hcl Odt 4 Mg Tablet PO 8 mg BID@1300,2200 BRISEYDA Administration Oxycodone/Acetaminophen 1 - 2 tab 09/01/24 21:00 09/05/24 09:51 Oxycodone/Acetaminophen (*Crx) 10-325 Mg Tablet PO 1 tab QID BRISEYDA Administration Pantoprazole Sodium 40 mg 09/01/24 09:00 09/05/24 09:50 Pantoprazole 40 Mg Tablet PO 40 mg QAM BRISEYDA Administration Prednisone 40 mg 09/03/24 08:00 09/05/24 09:50 Prednisone 20 Mg Tablet PO 40 mg DAILY@0800 BRISEYDA Administration Promethazine HCl .5 mg 08/31/24 16:41 Promethazine Hcl 25 Mg/Ml Ampul IV PUSH Q6H PRN Nausea Promethazine HCl 50 mg 09/02/24 09:00 09/05/24 09:49 Promethazine Hcl 25 Mg Tablet PO 50 mg BIDPC BRISEYDA Administration Saccharomyces Boulardii 250 mg 09/04/24 17:00 09/05/24 09:50 Saccharomyces Boulardii 250 Mg Capsule PO 09/11/24 16:59 250 mg BID BRISEYDA Administration Fluticasone/Salmeterol 2 puff 09/03/24 20:00 09/05/24 07:00 Fluticasone/Salmeterol 115-21 Mcg Inhaler 1 Puff INHALATION 2 puff Q12HRT BRISEYDA Administration Senna/Docusate Sodium 1 tab 09/01/24 21:00 09/04/24 21:23 Senna/Docusate Sodium Tablet PO Not Given HS BRISEYDA Sertraline HCl 100 mg 08/31/24 21:20 09/04/24 21:22 Sertraline Hcl 50 Mg Tablet PO 100 mg HS BRISEYDA Administration Radiology Results: ITS Impressions Chest CTA 08/31/24 23:10 IMPRESSION: 1. No pulmonary embolus. Sensitivity is mildly decreased by obesity and suboptimal contrast opacification. 2. Diffuse lung disease, likely atypical pneumonia. 3. Right lower lobe nodules measuring up to 7 mm, probably benign. Noncontrast low-dose chest CT is recommended in 6-12 months. 4. Mild right hilar lymphadenopathy, likely reactive. Chest X-Ray 09/03/24 14:09 IMPRESSION: Patchy bilateral mild pulmonary infiltrate, more prominent in the lower lung zones, mildly improved since 08/31/2024 Labs Labs: Laboratory Results - last 24 hr 09/01/24 09/02/24 09/05/24 01:59 12:23 05:49 WBC 15.5 H RBC 4.46 Hgb 13.4 Hct 42.3 MCV 94.8 MCH 30.0 MCHC 31.7 L RDW 13.0 Plt Count 318 MPV 9.0 Immature Gran % (Auto) 0.5 Neut % (Auto) 69.4 Lymph % (Auto) 23.4 [place] % (Auto) 5.5 Eos % (Auto) 0.7 Baso % (Auto) 0.5 Lymph # (Auto) 3.63 H [place] # (Auto) 0.9 H Eos # (Auto) 0.1 Baso # (Auto) 0.1 Abs Immat Gran (auto) 0.07 H Absolute Neuts (auto) 10.8 H Absolute Nucleated RBC 0.000 Nucleated RBC % 0.0 Sodium 140 Potassium 3.8 Chloride 102 Carbon Dioxide 36 H Anion Gap 2 L BUN 12 Creatinine 0.60 L Estim Creat Clear Calc 137 Estimated GFR > 60 Glucose 93 Calcium 8.8 ANGELA Scrn Qualitative Negative ANGELA [place] Interp Not Reportable Urine Pneumococcal Ag Not detected Quality VTE Prophylaxis VTE prophylaxis: pharmacologic ordered (Lovenox 40 mg subQ q.12h)
[2024-09-05] MEDS: AZITHROMYCIN 500 MG/NS 250 ML 500 MG/250 ML BAG 250 MG IVPB (12:44)
[2024-09-05] MEDS: ONDANSETRON HCL ODT 4 MG TABLET 8 MG PO ×2 (12:45→21:02)
[2024-09-05] MEDS: METOPROLOL SUCCINATE EXT REL 100 MG TABCR PO (17:35)
[2024-09-05] MEDS: diazePAM (*CRX) 5 MG TABLET 10 MG PO (21:01)
[2024-09-05] MEDS: SERTRALINE HCL 50 MG TABLET 100 MG PO (21:38)
[2024-09-06] VITALS (13 sets, daily range): BP systolic 148–177; BP diastolic 61–86; PULSE 60–77; RESP 12–20; TEMP 35.5–36.1; O2SAT 95–97
[2024-09-06] MEDS: IPRATROPIUM 0.5 MG/ALBUTEROL SULFATE 2.5 MG AMPUL.NEB 3 ML INHALATION ×4 (03:03→20:58)
[2024-09-06 06:08] LABS: Basophils Percent Auto 0.3 % (0.2-1.2); Eosinophils Absolute Auto 0.1 K/mm3 (0-0.3); Eosinophils Percent Auto 0.5 % (0-4.4); Hematocrit 41.8 % (37.0-47.0); Hemoglobin 13.7 g/dL (12.0-15.0); Immature Granulocyte Absolute 0.07 K/mm3 (0.00-0.031); Immature Granulocyte Percent A 0.5 % (0-0.5); Lymphocytes Percent Auto 24.5 % (18.3-44.2); Mean Corpuscular HGB Conc 32.8 g/dl (32-36); Mean Corpuscular Hemoglobin 30.4 pg (26-34); Mean Corpuscular Volume 92.9 fl (80-100); Monocytes Absolute Auto 0.7 K/mm3 (0.1-0.6); Monocytes Percent Auto 5.1 % (2.6-8.5); Neutrophils Absolute Auto 9.9 K/mm3 (1.3-6.7); Neutrophils Percent Auto 69.1 % (45.5-73.1); Platelet Count Result 333 k/mm3 (150-375); Red Cell Distribution Width 12.8 % (11.5-14.5); White Blood Count 14.3 K/mm3 (4.5-10.0)
[2024-09-06 06:22] LABS: Anion Gap 0 mmol/L (4-12); Blood Urea Nitrogen 16 mg/dL (7-17); Carbon Dioxide 35 mmol/L (22-30); Chloride 103 mmol/L (98-107); Estimated CRCL calculation 137 ml/min; Estimated Glomerular Filt Rate > 60; Glucose 92 mg/dL (65-110); Potassium 3.5 mmol/L (3.4-5.0); Sodium 138 mmol/L (137-145)
[2024-09-06] MEDS: FLUTICASONE/SALMETEROL 115-21 MCG INHALER 1 PUFF 2 PUFF INHALATION (07:15)
[2024-09-06] MEDS: predniSONE 20 MG TABLET 40 MG PO (08:49)
[2024-09-06] MEDS: oxyCODONE/ACETAMINOPHEN (*CRX) 10-325 MG TABLET PO ×4 (08:50→21:21)
[2024-09-06] MEDS: SACCHAROMYCES BOULARDII 250 MG CAPSULE PO ×2 (08:50→17:36)
[2024-09-06] MEDS: levETIRAcetam 500 MG TABLET 1500 MG PO ×2 (08:50→21:14)
[2024-09-06] MEDS: FUROSEMIDE 40 MG TABLET PO (08:50)
[2024-09-06] MEDS: PANTOPRAZOLE 40 MG TABLET PO (08:50)
[2024-09-06] MEDS: METOPROLOL SUCCINATE EXT REL 100 MG TABCR 200 MG PO (08:50)
[2024-09-06] MEDS: ENOXAPARIN 40 MG/0.4 ML SYRINGE SUB-Q ×2 (08:51→21:14)
[2024-09-06] MEDS: ATORVASTATIN 20 MG TABLET PO (08:51)
[2024-09-06] MEDS: PROMETHAZINE HCL 25 MG TABLET 50 MG PO ×2 (08:51→17:36)
[2024-09-06] MEDS: guaiFENesin 12 HR 600 MG TABCR PO ×2 (08:51→21:14)
[2024-09-06] MEDS: NICOTINE (*PBKC) 14 MG PATCH 1 PATCH TRANSDERM ×2 (08:51→21:26)
[2024-09-06] MEDS: AZITHROMYCIN 500 MG/NS 250 ML 500 MG/250 ML BAG 250 MG IVPB (12:46)
[2024-09-06] MEDS: ONDANSETRON HCL ODT 4 MG TABLET 8 MG PO ×2 (12:46→21:26)
--- NOTE | 2024-09-06 14:28 | P.CONPL_ITS ---
Assessment and Plan Assessment and plan (1) Pneumonia: Qualifiers: Laterality: bilateral Lung location: unspecified part of lung P neumonia type: due to unspecified organism Qualified Code(s): J18.9 - Pneumonia, unspecified organism Code(s): J18.9 - Pneumonia, unspecified organism Status: Acute Assessment and Plan: She has community-acquired pneumonia, ground-glass opacities on chest CT, cough, sputum production, shortness of breath and oxygen requirement. Her swabs for viral conditions were all negative, influenza A/B, RSV, SARS-CoV-2, urine antigen for pneumococcus, urine antigen for Legionella, mono spot, group a strep PCR; Mycoplasma pneumoniae testing is pending at this time. Her CXR is improving on 09/03/24 compared to CTA 08/31. (2) Hypoxia: Code(s): R09.02 - Hypoxemia Status: Acute Assessment and Plan: She is currently on oxygen 1 L, discharge plans include 1 L at rest, 2 L with exertion and sleep. We will retest oxygen requirement after discharge. (3) History of tobacco abuse: Code(s): Z87.891 - Personal history of nicotine dependence Status: Acute Assessment and Plan: Has a 27 year history of smoking a pack per day, had a quit attempt at the time of her brain surgery, stayed off cigarettes for 3 days after her discharge and since then has been smoking steadily. She has called the 1 800 QUIT NOW number, she is planning to have nicotine replacement therapy prescribed at discharge, making plans with her son to eliminate tobacco from there duplex prior to her arrival, and is serious about staying off tobacco. (4) Multiple pulmonary nodules determined by computed tomography of lung: Code(s): R91.8 - Other nonspecific abnormal finding of lung field Status: Acute Assessment and Plan: Nodules are 7 mm, 6 mm, and 4 mm in right lower lobe; This was noted on 08/31/2024 CTA, radiologist recommends follow-up CT scan in 6-12 months. Plan plan: 1) Change IV antibiotics to oral. She has completed over 5 days of azithromycin, a complete course, does not need this switched to oral. She is on ceftriaxone, can be switched to Augmentin to complete 10 days. 2) Tobacco cessation information prior to discharge. She has been off cigarettes 7 days, since admission. Risk of relapse increases when she returns home. 3) She has Medicaid, can get prescription for nicotine replacement therapy which is covered by Medicaid in [place]. He has information on how to use nicotine replacement and how to taper it. 4) She has portable O2 to take home, current plan is 1 L at rest, 2 L with exertion and with sleep. 5) Repeat CXR in 3 weeks, appointment in our office afterwards. 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 Patient has smoked cigarettes a pack per day during her adult life. She aslo smokes marijuan frequently, however not daily. She denies having a chronic cough or sputum production when she is not sick with an infection. She did not have any antibiotics as an outpatient prior to admission. She gives a history of chronic bronchitis in childhood. She says that for the last 2 months she has been feeling under the weather with on and off respiratory symptoms, has been using [id number] medications. She had increasing cough, sputum that was yellow greenish, wheezing, mildly sore throat, subjective fevers and a little diarrhea prior to admission. She developed chest pain that felt like pressure, had a difficult time taking a breath in for 2-3 days prior to admission. She initially thought that she had a winter cold until the symptoms worsened. Her 22 year old son was also sick before she was admitted, however he was not as ill. The history and physical notes that she had orthopnea and required pillows in order to rest and breathe at night. She is still having drainage, cough and difficulty breathing, especially at night. This is making it difficult for her to sleep in the hospital. Initial sodium was 133, now it is normal 138. Vaccinations: She never takes flu vaccinations, says that a flu vaccination made her sick once. She had her initial COVID series and a booster last year, has not had a booster this season, and she is eligible, I would recommend it. She had a pneumococcal vaccination after her initial craniotomy 2016. She is probably due for a booster. SLEEP: She will be seeing a movement disorder neurologist [facility] in December, will have evaluation of movements, seizures, sleep. She has not been tested for ROSEY. BMI is 44.5, small airway. PMH: GERD, chronic pain in her head from the craniotomy 2016 brainstem tumor and seizure disorder secondary; white coat hypertension, hypercholesterolemia, anxiety and depression; she sees pain amangement, does nto get medicated for anxiety, tells me that she can get pain meds but cannot take anxiety meds with pain meds. DATA * 08/31/24 CTA -There are scattered ground-glass opacities in all lobes. There are 7 mm, 6 mm, and 4 mm nodules in right lower lobe. No pleural effusion. The heart size is normal. No pericardial effusion. There is no pulmonary embolus. There is mild right hilar lymphadenopathy. There are changes of cholecystectomy. There is mild cervical and thoracic spondylosis. IMPRESSION: 1. No pulmonary embolus. Sensitivity is mildly decreased by obesity and suboptimal contrast opacification. 2. Diffuse lung disease, likely atypical pneumonia. 3. Right lower lobe nodules measuring up to 7 mm, probably benign. Noncontrast low-dose chest CT is recommended in 6-12 months. 4. Mild right hilar lymphadenopathy, likely reactive. * 09/03/24 CXR : Scattered bilateral patchy infiltrates, more prominent in the lower lung zones, mildly improved since 08/31/2024. Heart size is within normal range. No pulmonary vascular congestion or pneumothorax. IMPRESSION: Patchy bilateral mild pulmonary infiltrate, more prominent in the lower lung zones, mildly improved since 08/31/2024 * initial white blood cell count was 15.9, today September 06 white blood cell count is 14.3. She had a left shift. Her sodium is been normal 138. Renal function is normal. Glucose is normal. ANGELA panel is negative on 09/02/2024. Review of Systems 2 Review of Systems: She has had mild ankle swelling since her craniotomy, takes a diuretic every day She uses albuterol when she has a panic attack, this helps control her shortness of breath. She keeps a cane in her car which she uses on occasions when she is outside the house. 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 She has subsequently had multiple episodes of radiation therapy. Her tumor did not respond to chemotherapy. She is followed by Oncology and Neurology at [place]. Surgical History Surgical History (Updated 08/31/24 @ 23:10 by Mey Polanco DO) History of hysterectomy for benign disease (12/2023) Without oophorectomy History of cholecystectomy History of tonsillectomy Social History Social History (Updated 08/31/24 @ 23:12 by Mey Polanco DO) Social History: The patient lives in a duplex. Her mother owns to critical access hospital and lives on 1 side she and her son live on the other side. Her son is 22 years old. The patient is smoked a pack per day since she was 17 years old. She denies any history of alcohol use at all. She does smoke marijuana on a daily basis. She has been on disability since at least 2015 since she was diagnosed with a brainstem tumor. Code status: Full code (patient does have a living will) Surrogate decision maker: Mother Smoking packs per day: 1 Smoking cigarettes per day: 20.0 Years smoked: 27 Smoking pack-years: 27.00 Smoking status: Current every day smoker Substance use: current Substance use type: marijuana Do You Feel Safe in your Home?: Yes Lack of Transportation: No Lack of Food: Never True Current Housing: I Have Housing Concerned About Future Housing: No Difficulty Paying Gas/Electric Bills: No Difficulty Paying for Meds: No Currently Unemployed: No Education: Decline to Answer Difficulty w/ Childcare or Family Care: No Living arrangements: with family Additional living arrangements comments: SON Gender identity (if verbalized by the patient): Female Spiritual care concerns: No Meds Home Medications and Allergies Home Medications ?Medication ?Instructions ?Recorded ?Confirmed ?Type albuterol sulfate 90 mcg/actuation 2 inh inhalation Q4-6H PRN 11/27/19 08/31/24 History aerosol inhaler (Ventolin HFA) Shortness Of Breath diazepam 5 mg tablet 10 mg PO HS 11/27/19 08/31/24 History furosemide 20 mg tablet 40 mg PO HS 11/27/19 08/31/24 History omeprazole 20 mg capsule,delayed 20 mg PO HS 11/27/19 08/31/24 History release ondansetron HCl 8 mg tablet 8 mg PO Q8H PRN Nausea 11/27/19 08/31/24 History sertraline 100 mg tablet 100 mg PO HS 11/27/19 08/31/24 History levetiracetam 500 mg tablet 1,500 mg PO BID 02/06/20 08/31/24 History metoprolol succinate 100 mg 100 mg PO HS 02/06/20 08/31/24 History tablet,extended release 24 hr atorvastatin 20 mg tablet 20 mg PO HS 01/04/24 08/31/24 History metoprolol succinate 200 mg 200 mg PO DAILY 01/04/24 08/31/24 History tablet,extended release 24 hr naloxegol 25 mg tablet (Movantik) 25 mg PO HS 01/04/24 08/31/24 History oxycodone-acetaminophen 10 mg-325 1 tablet PO Q4-6H PRN Pain 01/04/24 08/31/24 History mg tablet promethazine 50 mg tablet 50 mg PO Q6H PRN Nausea 01/04/24 08/31/24 History Allergies Allergy/AdvReac Type Severity Reaction Status Date / Time adhesive tape Allergy Mild Rash Verified 01/11/24 07:29 sumatriptan Allergy Mild Unknown Verified 01/11/24 07:29 Vital Signs Vital Signs - 24 hr 09/05/24 17:35 09/05/24 19:45 09/05/24 19:45 Temperature Pulse Rate 84 70 Respiratory Rate 20 Blood Pressure Pulse Oximetry 95 Oxygen Delivery Nasal Cannula Oxygen Flow Rate 1 09/05/24 19:53 09/05/24 20:00 09/05/24 20:52 Temperature 36.1 C L Pulse Rate 69 76 Respiratory Rate 20 17 Blood Pressure 153/82 H Pulse Oximetry 94 94 Oxygen Delivery Nasal Cannula Oxygen Flow Rate 1 09/06/24 03:03 09/06/24 03:12 09/06/24 06:00 Temperature 36.1 C L Pulse Rate 64 69 60 Respiratory Rate 18 18 12 Blood Pressure 148/61 H Pulse Oximetry 97 Oxygen Delivery Oxygen Flow Rate 09/06/24 07:15 09/06/24 07:15 09/06/24 07:23 Temperature Pulse Rate 75 77 Respiratory Rate 18 18 Blood Pressure Pulse Oximetry 95 Oxygen Delivery Nasal Cannula Oxygen Flow Rate 2 09/06/24 08:50 09/06/24 13:54 09/06/24 14:00 Temperature 35.6 C L Pulse Rate 76 75 74 Respiratory Rate 18 18 Blood Pressure 171/86 H Pulse Oximetry 96 Oxygen Delivery Oxygen Flow Rate 09/06/24 14:01 Temperature Pulse Rate 72 Respiratory Rate 18 Blood Pressure Pulse Oximetry Oxygen Delivery Oxygen Flow Rate Exam 2 Narrative: GEN: Alert, oriented, not in distress. She has mild raspiness ion her voice. HEENT: pupils are equal, EOMI, symmetrical face; oral membranes moist, Mallampati III airway, no maxillary or facial sinus tenderness NECK: Trachea is midline, no palpable lymphadenopathy CHEST: Equal air entry, symmetric excursion, limited inspiration due to ribcage discomfort, very rare crackle in the bases, no wheezing CV: Regular S1S2 no m/g/r ABD : (+) bowel sounds Extremities : no clubbing, cyanosis, or edema, good capillary refill PSYCH: normal thought and speech, gait is not tested Results Laboratory Findings 09/06/24 05:53 09/06/24 05:53 Abnormal lab findings: Abnormal Labs 08/31/24 09/01/24 09/02/24 14:33 06:39 12:23 WBC 15.9 H 12.1 H 12.7 H Hgb 15.6 H MCHC Immature Gran % (Auto) 0.7 H Neut % (Auto) 83.3 H 77.8 H 76.6 H Lymph % (Auto) 7.2 L 10.8 L 13.6 L Lymph # (Auto) [place] # (Auto) 1.2 H 1.0 H 0.8 H Eos # (Auto) 0.4 H Abs Immat Gran (auto) 0.05 H 0.08 H Absolute Neuts (auto) 13.2 H 9.4 H 9.8 H ESR 40 H Sodium 133 L Carbon Dioxide Anion Gap 3 L BUN 6 L D 6 L 6 L Creatinine 0.50 L 0.60 L 0.50 L C-Reactive Protein 13.1 H 09/04/24 09/05/24 09/06/24 06:28 05:49 05:53 WBC 15.6 H 15.5 H 14.3 H Hgb MCHC 31.8 L 31.7 L Immature Gran % (Auto) Neut % (Auto) Lymph % (Auto) Lymph # (Auto) 3.39 H 3.63 H 3.50 H [place] # (Auto) 1.0 H 0.9 H 0.7 H Eos # (Auto) Abs Immat Gran (auto) 0.06 H 0.07 H 0.07 H Absolute Neuts (auto) 11.0 H 10.8 H 9.9 H ESR Sodium Carbon Dioxide 33 H 36 H 35 H Anion Gap 2 L 0 L BUN Creatinine 0.60 L 0.60 L 0.60 L C-Reactive Protein
[2024-09-06] MEDS: METOPROLOL SUCCINATE EXT REL 100 MG TABCR PO (17:36)
--- NOTE | 2024-09-06 18:22 | PM.IMPN ---
Progress Note: A&P Assessment and Plan (1) Acute hypoxic respiratory failure: Code(s): J96.01 - Acute respiratory failure with hypoxia Status: Acute Assessment and Plan: Acute hypoxic Respiratory Failure On 2L NC for sats > 90 %. Wean O2 as tolerated Continue scheduled Duoneb treatment and symbicort. --Flu A/B negative, Covid PCR negative, Group A Strep PCR negative. --Currently on PO steroids. --Consider outpatient PFT's. --Furosemide discontinued. --Pulmonary consulted. --Repeat CXR showing improving infiltrates (2) Pneumonia: Qualifiers: Laterality: bilateral Lung location: unspecified part of lung Pneumonia type: due to unspecified organism Qualified Code(s): J18.9 - Pneumonia, unspecified organism Code(s): J18.9 - Pneumonia, unspecified organism Status: Acute Assessment and Plan: Pneumonia Started on empiric Rocephin (09/01-present) and Azithromycin 500mg IVPB daily. COVID/Flu/RSV negative Community acquired pneumonia. Overall improving white count and x-ray improving but still with wheezing and shortness of breath with activity, though also improving. No oxygen at baseline. 08/31 CTA showed 1. No pulmonary embolus. Sensitivity is mildly decreased by obesity and suboptimal contrast opacification. 2. Diffuse lung disease, likely atypical pneumonia. 3. Right lower lobe nodules measuring up to 7 mm, probably benign. Noncontrast low-dose chest CT is recommended in 6-12 months. 4. Mild right hilar lymphadenopathy, likely reactive. 09/03 Chest x-ray Scattered bilateral patchy infiltrates, more prominent in the lower lung zones, mildly improved since 08/31/2024. Heart size is within normal range. No pulmonary vascular congestion or pneumothorax. Plan Follow up Mycoplasma IgG & IgM, Legionella Urine ag Sputum culture contamination Needs a follow up CT in 6-12 months as noted Checking strep and mono given sore throat, though less likely, no exudates Currently on Augmentin. (3) Sepsis: Qualifiers: Sepsis type: sepsis due to unspecified organism Sepsis acute organ dysfunction status: with acute organ dysfunction Severe sepsis acute organ dysfunction type: acute respiratory failure Acute respiratory failure type: with hypoxia Severe sepsis shock status: without septic shock Qualified Code(s): A41.9 - Sepsis, unspecified organism; R65.20 - Severe sepsis without septic shock; J96.01 - Acute respiratory failure with hypoxia Code(s): A41.9 - Sepsis, unspecified organism Status: Acute Assessment and Plan: Treatment of pneumonia as noted on # 1 and #2. Currently on Augmentin. (4) Morbid obesity with BMI of 40.0-44.9, adult: Code(s): E66.01 - Morbid (severe) obesity due to excess calories; Z68.41 - Body mass index [BMI] 40.0-44.9, adult Status: Acute Assessment and Plan: - Encouraged with lifestyle modification. (5) Essential hypertension: Code(s): I10 - Essential (primary) hypertension Status: Acute Assessment and Plan: - BP trending high. - Will start on Lisinopril. - Continue to adjust BP meds as needed. (6) Cough: Code(s): R05.9 - Cough, unspecified Status: Acute Assessment and Plan: Chronic cough with water intermittently. Hx intubation and difficulty with tongue movements --Speech evaluated and symptoms improved with chin tuck --Mucinex 600 mg PO BID. Plan Other medical conditions stable Hx seizures Continue Keppra, diazepam Chronic pain Continue home percocet Movantik not available Chronic nausea since brain tumore --Zofran, promethazine prn Time Spent With Patient Time with patient: 15 - 25 minutes Subjective Date/time seen: 09/06/24 11:22 Patient states she still gets SOB with minimal activity. Pt reports Hx of smoking but has never been diagnosed with COPD but has Hx of asthma. Interval history: Patient on bedrest and gets SOB with minimal activity. Review of Systems Review of Systems: 12 systems were reviewed with pertinent positives and negatives per HPI. Except as documented in the HPI, all other systems were reviewed and are negative. All systems reviewed & are unremarkable except as noted in HPI and below Exam Narrative: Weight 125 kg BMI 44.5 General - Awake and alert. Slight respiratory distress with minimal activity. Eyes - PERRLA, EOM intact ENT - No thrush, No erythema Neck - Supple. Lymph Nodes - No lymphadenopathy Cardiovascular - RRR no murmurs. Lungs: Clear to auscultation, Faint Expiratory wheezing, Skin - Skin warm and dry, no wounds or rashes Abdomen - Normal bowel sounds, abdomen soft and nontender Extremities - No edema, cyanosis or clubbing Musculoskeletal - 5/5 strength, normal range of motion, no swollen or erythematous joints. Neurological ? Alert and oriented x 3, CN 2-12 grossly intact. Psych: Normal mood and affect Objective Data Vital Signs Vital Signs: Vital Signs - 24 hr 09/05/24 19:45 09/05/24 19:45 09/05/24 19:53 Temperature Pulse Rate 70 69 Respiratory Rate 20 20 Blood Pressure Pulse Oximetry 95 Oxygen Delivery Nasal Cannula Oxygen Flow Rate 1 09/05/24 20:00 09/05/24 20:52 09/06/24 03:03 Temperature 97.0 F L Pulse Rate 76 64 Respiratory Rate 17 18 Blood Pressure 153/82 H Pulse Oximetry 94 94 Oxygen Delivery Nasal Cannula Oxygen Flow Rate 1 09/06/24 03:12 09/06/24 06:00 09/06/24 07:15 Temperature 96.9 F L Pulse Rate 69 60 Respiratory Rate 18 12 Blood Pressure 148/61 H Pulse Oximetry 97 95 Oxygen Delivery Nasal Cannula Oxygen Flow Rate 2 09/06/24 07:15 09/06/24 07:23 09/06/24 08:00 Temperature Pulse Rate 75 77 Respiratory Rate 18 18 Blood Pressure Pulse Oximetry 95 Oxygen Delivery Nasal Cannula Oxygen Flow Rate 1 09/06/24 08:50 09/06/24 13:54 09/06/24 14:00 Temperature 96.0 F L Pulse Rate 76 75 74 Respiratory Rate 18 18 Blood Pressure 171/86 H Pulse Oximetry 96 Oxygen Delivery Oxygen Flow Rate 09/06/24 14:01 Temperature Pulse Rate 72 Respiratory Rate 18 Blood Pressure Pulse Oximetry Oxygen Delivery Oxygen Flow Rate Intake/Output Intake/Output: Intake & Output 09/03/24 09/04/24 09/05/24 09/06/24 23:59 23:59 23:59 23:59 Intake Total 1930 1260 1740 1950 Balance 1930 1260 1740 1950 Meds/Results Medications: Active Medications Generic Name Dose Route Start Last Admin Trade Name Freq PRN Reason Stop Dose Admin Acetaminophen 650 mg 08/31/24 16:41 Acetaminophen 325 Mg Tablet PO Q4H PRN Mild Pain (1-3) or Fever Albuterol/Ipratropium 3 ml 08/31/24 20:00 09/06/24 13:54 Ipratropium 0.5 Mg/Albuterol Sulfate 2.5 Mg Ampul.Neb 3 Ml INHALATION 3 ml Q6HRT BRISEYDA Administration Amoxicillin/Clavulanate Potassium 1 tablet 09/06/24 21:00 Amoxicillin/Clavulanate K 875-125 Mg Tab PO Q12HR [facility] Atorvastatin Calcium 20 mg 09/01/24 09:00 09/06/24 08:51 Atorvastatin 20 Mg Tablet PO 20 mg DAILY BRISEYDA Administration Diazepam 10 mg 08/31/24 21:15 09/05/24 21:01 Diazepam (*Crx) 5 Mg Tablet PO 10 mg HS BRISEYDA Administration Enoxaparin Sodium 40 mg 09/01/24 09:00 09/06/24 08:51 Enoxaparin 40 Mg/0.4 Ml Syringe SUB-Q 40 mg Q12HR BRISEYDA Administration Furosemide 40 mg 09/01/24 09:00 09/06/24 08:50 Furosemide 40 Mg Tablet PO 40 mg DAILY BRISEYDA Administration Guaifenesin 600 mg 09/04/24 11:55 09/06/24 08:51 Guaifenesin 12 Hr 600 Mg Tabcr PO 09/11/24 11:54 600 mg Q12HR BRISEYDA Administration Levetiracetam 1,500 mg 08/31/24 23:25 09/06/24 08:50 Levetiracetam 500 Mg Tablet PO 1,500 mg Q12HR BRISEYDA Administration Metoprolol Succinate 200 mg 09/01/24 09:00 09/06/24 08:50 Metoprolol Succinate Ext Rel 100 Mg Tabcr PO 200 mg DAILY BRISEYDA Administration Metoprolol Succinate 100 mg 09/02/24 17:00 09/06/24 17:36 Metoprolol Succinate Ext Rel 100 Mg Tabcr PO 100 mg 1700 [facility] Administration Nicotine 1 patch 08/31/24 15:55 09/06/24 08:51 Nicotine (*Pbkc) 14 Mg Patch TRANSDERM 1 patch DAILY [facility] Administration Ondansetron HCl 8 mg 09/02/24 13:00 09/06/24 12:46 Ondansetron Hcl Odt 4 Mg Tablet PO 8 mg BID@1300,2200 [facility] Administration Oxycodone/Acetaminophen 1 - 2 tab 09/01/24 21:00 09/06/24 17:35 Oxycodone/Acetaminophen (*Crx) 10-325 Mg Tablet PO 2 tab QID [facility] Administration Pantoprazole Sodium 40 mg 09/01/24 09:00 09/06/24 08:50 Pantoprazole 40 Mg Tablet PO 40 mg QAM BRISEYDA Administration Prednisone 40 mg 09/03/24 08:00 09/06/24 08:49 Prednisone 20 Mg Tablet PO 40 mg DAILY@0800 BRISEYDA Administration Promethazine HCl 12.5 mg 08/31/24 16:41 Promethazine Hcl 25 Mg/Ml Ampul IV PUSH Q6H PRN Nausea Promethazine HCl 50 mg 09/02/24 09:00 09/06/24 17:36 Promethazine Hcl 25 Mg Tablet PO 50 mg BIDPC BRISEYDA Administration Saccharomyces Boulardii 250 mg 09/04/24 17:00 09/06/24 17:36 Saccharomyces Boulardii 250 Mg Capsule PO 09/11/24 16:59 250 mg BID BRISEYDA Administration Fluticasone/Salmeterol 2 puff 09/03/24 20:00 09/06/24 07:15 Fluticasone/Salmeterol 115-21 Mcg Inhaler 1 Puff INHALATION 2 puff Q12HRT BRISEYDA Administration Senna/Docusate Sodium 1 tab 09/01/24 21:00 09/05/24 21:02 Senna/Docusate Sodium Tablet PO Not Given HS BRISEYDA Sertraline HCl 100 mg 08/31/24 21:20 09/05/24 21:38 Sertraline Hcl 50 Mg Tablet PO 100 mg HS BRISEYDA Administration Radiology Results: ITS Impressions Chest CTA 08/31/24 23:10 IMPRESSION: 1. No pulmonary embolus. Sensitivity is mildly decreased by obesity and suboptimal contrast opacification. 2. Diffuse lung disease, likely atypical pneumonia. 3. Right lower lobe nodules measuring up to 7 mm, probably benign. Noncontrast low-dose chest CT is recommended in 6-12 months. 4. Mild right hilar lymphadenopathy, likely reactive. Chest X-Ray 09/03/24 14:09 IMPRESSION: Patchy bilateral mild pulmonary infiltrate, more prominent in the lower lung zones, mildly improved since 08/31/2024 Labs Labs: Laboratory Results - last 24 hr 09/06/24 05:53 WBC 14.3 H RBC 4.50 Hgb 13.7 Hct 41.8 MCV 92.9 MCH 30.4 MCHC 32.8 RDW 12.8 Plt Count 333 MPV 9.0 Immature Gran % (Auto) 0.5 Neut % (Auto) 69.1 Lymph % (Auto) 24.5 Wilkin % (Auto) 5.1 Eos % (Auto) 0.5 Baso % (Auto) 0.3 Lymph # (Auto) 3.50 H Wilkin # (Auto) 0.7 H Eos # (Auto) 0.1 Baso # (Auto) 0.0 Abs Immat Gran (auto) 0.07 H Absolute Neuts (auto) 9.9 H Absolute Nucleated RBC 0.000 Nucleated RBC % 0.0 Sodium 138 Potassium 3.5 Chloride 103 Carbon Dioxide 35 H Anion Gap 0 L BUN 16 Creatinine 0.60 L Estim Creat Clear Calc 137 Estimated GFR > 60 Glucose 92 Calcium 9.0 Quality VTE Prophylaxis VTE prophylaxis: pharmacologic ordered (Lovenox 40 mg subQ q.12h) Hospitalist [facility] Advance Care Plan I have confirmed that the patient's Advanced Care Plan is present, code status is documented, or surrogate decision maker is listed in patient medical record.: Yes Medication Reconciliation I have utilized all available resources to obtain, update and review the patients current medications (includes all prescriptions, OTC, herbals, cannabis, and nutritional supplements).: Yes
[2024-09-06] MEDS: SERTRALINE HCL 50 MG TABLET 100 MG PO (21:13)
[2024-09-06] MEDS: SENNA/DOCUSATE SODIUM TABLET 1 TAB PO (21:13)
[2024-09-06] MEDS: AMOXICILLIN/CLAVULANATE K 875-125 MG TAB 1 TABLET PO (21:13)
[2024-09-06] MEDS: diazePAM (*CRX) 5 MG TABLET 10 MG PO (21:14)
[2024-09-07 01:34] VITALS: PULSE 75; RESP 18
[2024-09-07] MEDS: IPRATROPIUM 0.5 MG/ALBUTEROL SULFATE 2.5 MG AMPUL.NEB 3 ML INHALATION ×2 (01:34→07:49)
[2024-09-07 01:42] VITALS: PULSE 77; RESP 18
[2024-09-07 04:10] VITALS: BP 179/79; PULSE 70; RESP 20; TEMP 35.6; O2SAT 96
[2024-09-07 07:41] VITALS: PULSE 72; RESP 18
[2024-09-07 07:42] LABS: Basophils Absolute Auto 0.1 K/mm3 (0.0-0.1); Basophils Percent Auto 0.4 % (0.2-1.2); Eosinophils Absolute Auto 0.1 K/mm3 (0-0.3); Eosinophils Percent Auto 0.7 % (0-4.4); Hematocrit 44.1 % (37.0-47.0); Hemoglobin 14.3 g/dL (12.0-15.0); Immature Granulocyte Absolute 0.08 K/mm3 (0.00-0.031); Immature Granulocyte Percent A 0.6 % (0-0.5); Lymphocytes Absolute Auto 3.46 K/mm3 (0.9-3.2); Lymphocytes Percent Auto 24.5 % (18.3-44.2); Mean Corpuscular HGB Conc 32.4 g/dl (32-36); Mean Corpuscular Hemoglobin 30.1 pg (26-34); Mean Corpuscular Volume 92.8 fl (80-100); Mean Platelet Volume 8.9 fl (7.4-10.4); Monocytes Absolute Auto 0.7 K/mm3 (0.1-0.6); Monocytes Percent Auto 5.2 % (2.6-8.5); Neutrophils Absolute Auto 9.7 K/mm3 (1.3-6.7); Neutrophils Percent Auto 68.6 % (45.5-73.1); Platelet Count Result 366 k/mm3 (150-375); Red Blood Count 4.75 M/mm3 (4.2-5.4); Red Cell Distribution Width 12.8 % (11.5-14.5); White Blood Count 14.2 K/mm3 (4.5-10.0)
[2024-09-07] MEDS: FLUTICASONE/SALMETEROL 115-21 MCG INHALER 1 PUFF 2 PUFF INHALATION (07:49)
[2024-09-07 07:57] LABS: Anion Gap 0 mmol/L (4-12); Blood Urea Nitrogen 19 mg/dL (7-17); Carbon Dioxide 36 mmol/L (22-30); Chloride 103 mmol/L (98-107); Estimated CRCL calculation 137 ml/min; Estimated Glomerular Filt Rate > 60; Glucose 88 mg/dL (65-110); Potassium 3.7 mmol/L (3.4-5.0); Sodium 139 mmol/L (137-145)
[2024-09-07 09:09] VITALS: PULSE 70
[2024-09-07] MEDS: METOPROLOL SUCCINATE EXT REL 100 MG TABCR 200 MG PO (09:09)
[2024-09-07] MEDS: AMOXICILLIN/CLAVULANATE K 875-125 MG TAB 1 TABLET PO (09:10)
[2024-09-07] MEDS: guaiFENesin 12 HR 600 MG TABCR PO (09:10)
[2024-09-07] MEDS: levETIRAcetam 500 MG TABLET 1500 MG PO (09:10)
[2024-09-07] MEDS: PANTOPRAZOLE 40 MG TABLET PO (09:10)
[2024-09-07] MEDS: oxyCODONE/ACETAMINOPHEN (*CRX) 10-325 MG TABLET PO (09:10)
[2024-09-07] MEDS: ATORVASTATIN 20 MG TABLET PO (09:10)
[2024-09-07] MEDS: predniSONE 20 MG TABLET 40 MG PO (09:10)
[2024-09-07] MEDS: SACCHAROMYCES BOULARDII 250 MG CAPSULE PO (09:11)
[2024-09-07] MEDS: PROMETHAZINE HCL 25 MG TABLET 50 MG PO (09:12)
--- NOTE | 2024-09-07 09:38 | PCNFU ---
Nutrition Follow-Up Complete: Inadequate oral intake related to loss of appetite, sleepiness as evidenced by pt sleeping through lunch Goal:Adequate PO intake at least 75% meals and supplements Pt meeting goal, continue with same goal Pt current nutrition is Heart healthy, Ensure compact BID. Nutrition recommendation: continue with current plan of care Last recorded weight is 125 kg. Bowel Motility: +BM 09/07 Labs Reviewed: Bun:19, Cr:0.6 Meds Noted: Skin: WNL Additional Notes: pt continues on a heart healthy diet, intake improved to 50-100% at this time. Encourage po intake. Agree with orders. Monitoring intakes, weights, labs, supplement tolerance, plan of care Follow up in 7 days
--- NOTE | 2024-09-07 09:58 | P.DS_ITS ---
DS: Admitting Diagnosis Discharge Date 09/07/2024 Admitting Diagnosis Sepsis, Acute Hypoxic Respiratory Failure, Pneumonia, Hypertension DS: Discharge Diagnosis Discharge Diagnosis (1) Acute hypoxic respiratory failure: Code(s): J96.01 - Acute respiratory failure with hypoxia Status: Acute Assessment and Plan: Acute hypoxic Respiratory Failure On 2L NC for sats > 90 %. Wean O2 as tolerated Continue scheduled Duoneb treatment and symbicort. --Flu A/B negative, Covid PCR negative, Group A Strep PCR negative. --Currently on PO steroids. --Consider outpatient PFT's. --Furosemide discontinued. --Pulmonary consulted. --Repeat CXR showing improving infiltrates 09/07/24 * OK to discharge to home per recommendations of Dr. Tidwell, Pulmonology. * Home with oxygen of 1L during wake hours and 2L at night and with any exertion * Follow up with Dr. Tidwell as outpt in three weeks with CXR prior to appointment. * Stop smoking. Patch provided as prescription at discharge. * Continue nebs/inhalers. (2) Pneumonia: Qualifiers: Laterality: bilateral Lung location: unspecified part of lung Pneumonia type: due to unspecified organism Qualified Code(s): J18.9 - Pneumonia, unspecified organism Code(s): J18.9 - Pneumonia, unspecified organism Status: Acute Assessment and Plan: Pneumonia Started on empiric Rocephin (09/01-present) and Azithromycin 500mg IVPB daily. COVID/Flu/RSV negative Community acquired pneumonia. Overall improving white count and x-ray improving but still with wheezing and shortness of breath with activity, though also improving. No oxygen at baseline. 08/31 CTA showed 1. No pulmonary embolus. Sensitivity is mildly decreased by obesity and suboptimal contrast opacification. 2. Diffuse lung disease, likely atypical pneumonia. 3. Right lower lobe nodules measuring up to 7 mm, probably benign. Noncontrast low-dose chest CT is recommended in 6-12 months. 4. Mild right hilar lymphadenopathy, likely reactive. 09/03 Chest x-ray Scattered bilateral patchy infiltrates, more prominent in the lower lung zones, mildly improved since 08/31/2024. Heart size is within normal range. No pulmonary vascular congestion or pneumothorax. Plan Follow up Mycoplasma IgG & IgM, Legionella Urine ag Sputum culture contamination Needs a follow up CT in 6-12 months as noted Checking strep and mono given sore throat, though less likely, no exudates Currently on Augmentin. 09/07/2024: * Discharge home with prescription to complete a course of Augmentin for a total of 10 days. * Follow up with Pulmonology * See #1 (3) Sepsis: Qualifiers: Sepsis type: sepsis due to unspecified organism Sepsis acute organ dysfunction status: with acute organ dysfunction Severe sepsis acute organ dysfunction type: acute respiratory failure Acute respiratory failure type: with hypoxia Severe sepsis shock status: without septic shock Qualified Code(s): A41.9 - Sepsis, unspecified organism; R65.20 - Severe sepsis without septic shock; J96.01 - Acute respiratory failure with hypoxia Code(s): A41.9 - Sepsis, unspecified organism Status: Resolved Assessment and Plan: * Treatment of pneumonia as noted on # 1 and #2. * Currently on Augmentin. 09/07/24: * Resolved (4) Morbid obesity with BMI of 40.0-44.9, adult: Code(s): E66.01 - Morbid (severe) obesity due to excess calories; Z68.41 - Body mass index [BMI] 40.0-44.9, adult Status: Chronic Assessment and Plan: - Encouraged with lifestyle modification. (5) Essential hypertension: Code(s): I10 - Essential (primary) hypertension Status: Chronic Assessment and Plan: - BP trending high. - Will start on Lisinopril. - Continue to adjust BP meds as needed. (6) Cough: Code(s): R05.9 - Cough, unspecified Status: Chronic Assessment and Plan: Chronic cough with water intermittently. Hx intubation and difficulty with tongue movements --Speech evaluated and symptoms improved with chin tuck --Mucinex 600 mg PO BID. 09/07/2024: * See pulmonology note. Pt has long respiratory history. She will be following up as outpt for further testing once she has recovered from her current PNA. 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 She was started on abx treatment and was supportive care and workup was continued. While here, Pulmonology has consulted and recommendations were made to start home oxygen as this is a new requirement for the pt and they will continue Augmentin for a total of ten days and follow up as outpatient in three weeks. It is noted that during her time here, her chest xray has shown improvement in overall condition. CT scan that was performed initially did note some coincidental nodules in her lungs that will require outpatient follow up to ensure stability at 6-12 mos. She is also serious about her smoking cessation and requests the nicotine patch to help her quit. This is also prescribed at time of discharge. Pt is overall stable for discharge today with the plan of follow up for further workup, testing and treatment as an outpatient in three weeks. Status at Discharge Cognitive/behavioral status at discharge: At baseline Functional status at discharge: independent ambulation Overall status at discharge: patient is not back to baseline Time Spent with Patient Time attestation: Total time spent providing and/or coordinating discharge services: Time spent: Greater than 30 minutes Specific discharge activities: Follow up, smoking cessation, oxygen use Exam Narrative: Weight 125 kg BMI 44.5 General - Awake and alert. Slight respiratory distress with minimal activity. Eyes - PERRLA, EOM intact ENT - No thrush, No erythema Neck - Supple. Lymph Nodes - No lymphadenopathy Cardiovascular - RRR no murmurs. Lungs: Faint Expiratory wheezing with prolonged expiratory phase noted. Skin - Skin warm and dry, no wounds or rashes Abdomen - Normal bowel sounds, abdomen soft and nontender Extremities - No edema, cyanosis or clubbing Musculoskeletal - 5/5 strength, normal range of motion, no swollen or erythematous joints. Neurological ? Alert and oriented x 3, CN 2-12 grossly intact. Psych: Normal mood and affect DS: Data Data Completed and Pending Completed studies during hospitalization: ITS Impressions Chest X-Ray 08/31/24 15:09 IMPRESSION: 1. Mild airspace opacities in the lower lung zones, consistent with atelectasis versus pneumonia. Chest CTA 08/31/24 23:10 IMPRESSION: 1. No pulmonary embolus. Sensitivity is mildly decreased by obesity and suboptimal contrast opacification. 2. Diffuse lung disease, likely atypical pneumonia. 3. Right lower lobe nodules measuring up to 7 mm, probably benign. Noncontrast low-dose chest CT is recommended in 6-12 months. 4. Mild right hilar lymphadenopathy, likely reactive. Chest X-Ray 09/03/24 14:09 IMPRESSION: Patchy bilateral mild pulmonary infiltrate, more prominent in the lower lung zones, mildly improved since 08/31/2024 Labs on day of discharge: Labs from last 24 hours 09/07/24 07:03 WBC 14.2 H RBC 4.75 Hgb 14.3 Hct 44.1 MCV 92.8 MCH 30.1 MCHC 32.4 RDW 12.8 Plt Count 366 MPV 8.9 Immature Gran % (Auto) 0.6 H Neut % (Auto) 68.6 Lymph % (Auto) 24.5 Mckenzie % (Auto) 5.2 Eos % (Auto) 0.7 Baso % (Auto) 0.4 Lymph # (Auto) 3.46 H Mckenzie # (Auto) 0.7 H Eos # (Auto) 0.1 Baso # (Auto) 0.1 Abs Immat Gran (auto) 0.08 H Absolute Neuts (auto) 9.7 H Absolute Nucleated RBC 0.000 Nucleated RBC % 0.0 Sodium 139 Potassium 3.7 Chloride 103 Carbon Dioxide 36 H Anion Gap 0 L BUN 19 H Creatinine 0.60 L Estim Creat Clear Calc 137 Estimated GFR > 60 Glucose 88 Calcium 9.0 Discharge Plan Discharge Attending physician on discharge: Madhavi Cruz Consulting providers: Sia Tidwell Discharging Clinician: Madhavi Cruz Anticipated Discharge Date/Time: 09/07/24 10:10 Patient Disposition: Home, Self-Care Activity: as tolerated Diet: heart healthy Discharge Instructions: Please wear your oxygen at home with 1L during the daytime when you are awake, 2L at night and 2L with any exertion. You will need to have a chest xray prior to your appointment with Dr. Tidwell in 3 weeks. An order is being provided. Please continue all medications as ordered. Make a follow up with your PCP as well as Dr. Tidwell. You are being prescribed the Nicotine patch to help you achieve your respiratory goals. Please use it as ordered. It is also very important that you DO NOT SMOKE WHILE WEARING THE NICOTINE PATCH. If you choose to smoke, you must first remove the patch and then start all over with treatment to stop. If at any point you have any worsening of your symptoms, it is very important that you return to the ER for re-evaluation. Patient Instructions: Antibiotic Form, Community Acquired Pneumonia (DC) Patient Language: Kiswahili Stand Alone Forms: General Discharge Information Follow-up/Referrals: Sia Tidwell MD [Physician] - 3 Weeks Fuentesfranck,Greer Ivory MD [Primary Care Provider] - Call for Appointment Discharge Medications: New fluticasone propion-salmeterol [Advair HFA] 115-21 mcg/actuation Hfa Aerosol Inhaler 2 puff inhalation Q12HRT Qty: 12 0RF nicotine 14 mg/24 hr Patch 24 Hour 1 patch transdermal DAILY Qty: 28 0RF guaifenesin [Mucus Relief ER] 600 mg Tablet Extended Release 12hr 600 mg PO Q12HR Qty: 30 0RF amoxicillin-pot clavulanate 875-125 mg tablet 1 tablet PO Q12H Qty: 8 0RF prednisone 10 mg tablet 10 mg PO DIRECTED Qty: 30 0RF Rx Instructions: Take four tabs daily for 3 days, then three tabs daily for three days, then two tabs daily for three days and one tab daily for 3 days. Combivent Respimat 20-100 mcg/actuation mist 1 puff inhalation QID Qty: 4 0RF Rx Instructions: space evenly during waking hours Continued levetiracetam 500 mg tablet 1,500 mg PO BID metoprolol succinate 100 mg tablet extended release 24 hr 100 mg PO HS Patient Comments: AT NIGHT ondansetron HCl 8 mg tablet 8 mg PO Q8H PRN (Reason: Nausea) sertraline 100 mg tablet 100 mg PO HS omeprazole 20 mg capsule,delayed release(DR/EC) 20 mg PO HS Patient Comments: AT NIGHT furosemide 20 mg tablet 40 mg PO HS albuterol sulfate [Ventolin HFA] 90 mcg/actuation HFA aerosol inhaler 2 inh INHALATION Q4-6H PRN (Reason: Shortness Of Breath) diazepam 5 mg tablet 10 mg PO HS atorvastatin 20 mg tablet 20 mg PO HS metoprolol succinate 200 mg tablet extended release 24 hr 200 mg PO DAILY Patient Comments: IN MORNING oxycodone-acetaminophen 10-325 mg tablet 1 tablet PO Q4-6H PRN (Reason: Pain) promethazine 50 mg tablet 50 mg PO Q6H PRN (Reason: Nausea) Movantik 25 mg tablet 25 mg PO HS Other Ambulatory Orders: XR chest 2V (Routine) Timeframe: 3 Weeks Location: Determined by Patient Ordered By: Madhavi Cruz Date of admission: 09/01/24 10:09 Primary Care Provider: JenniferGreer Admitting Provider: Paolo Diaz Attending physician on admission: Madhavi Cruz Condition: Stable Quality VTE Prophylaxis VTE prophylaxis: pharmacologic ordered Hospitalist MIPS Heart Failure (Exclusion) Patient has history of Heart Transplant or Left Ventricular Assistive Device?: No IF YES, STOP HERE Heart Failure (Qualifier) Patient has current or prior documentation of LVEF less than or equal to 40%, or mod/servere depressed LVSF?: No IF NO, STOP HERE
[2024-09-07 12:42] VITALS: PULSE 76; RESP 18
[2024-09-12 21:29] LABS: Legionella pneumophila Ag Ur NOT DETECTED
== END 2024-09-07 13:00 | disposition home or self-care (01) | DRG 871 ==
LOC: ANHED 16:58 → ANH3MEDSUR 17:55
PROVIDERS: Internal Medicine; Nurse Practitioner Acute Care; Admitting Provider Internal Medicine; Emergency Provider Emergency Medicine; PCP Family Medicine; Visit Provider Nurse Practitioner Adult Health
DX: A41.9 Sepsis, unspecified organism (principal); J18.9 Pneumonia, unspecified organism; J96.01 Acute respiratory failure with hypoxia; Z68.41 Body mass index [BMI] 40.0-44.9, adult; R65.20 Severe sepsis without septic shock; E66.01 Morbid (severe) obesity due to excess calories; I10 Essential (primary) hypertension; R05.9 Cough, unspecified; K21.9 Gastro-esophageal reflux disease without esophagitis; F41.9 Anxiety disorder, unspecified; F32.A Depression, unspecified; G40.909 Epilepsy, unspecified, not intractable, without status epilepticus; R91.8 Other nonspecific abnormal finding of lung field; G89.29 Other chronic pain; Z87.891 Personal history of nicotine dependence
CPT/HCPCS: 36415; 71046; 71275; 80048; 80053; 83605; 83735; 85025; 85652; 86038; 86140; 86225; 86235; 86308; 86364; 86738; 87040; 87070; 87205; 87449; 87637; 87651; 87899; 92610; 93005; 94618; 94640; 94762; 99285; A9270; G0378; J0456; J0696; J1650; J2550; J7512; Q9967

== ENCOUNTER 2025-01-25 10:13 | Outpatient (CLI) | payer MEDICARE, MEDICAID, SELFPAY ==
--- OUTSIDE RECORDS SUMMARY | 2025-01-25 10:17 | XMS_ITS | Encounter Summary ---
Author Organization [facility] Address [address] [place] [address] Phone Care Team Providers Care Lease Purchase Truck Driver Name Role Phone Greer Rodriguez MD Primary Care Provider + Tea Miramontes MD Unavailable [phone] James Carrion MD PhD Unavailable [phone] Elier Allred MD Unavailable [phone] Encounter Details Date Type Department Care Team (Latest Contact Info) Description 07/07/2017 Orders Only [facility] CONVERSION Scanning, Provider Social History Tobacco Use Types Packs/Day Years Used Date Smoking Tobacco: Every Day Comments Unknown Sex and Gender Information Value Date Recorded Sex Assigned at Not on file Legal Sex Female 8:31 AM CDT Gender Identity Female 04/10/2024 10:59 AM CDT Sexual Orientation Straight 03/06/2019 8: 15 AM CDT documented as of this encounter Plan of Treatment Not on file documented as of this encounter Procedures Procedure Name Priority Date/Time Associated Diagnosis Comments VASCULAR LABORATORY REPORT 07/07/2017 8:20 PM CDT documented in this encounter Results * VASCULAR LABORATORY REPORT (07/07/2017 8:20 PM CDT) Anatomical Region Laterality Modality Ultrasound us Provider Scanning CV VASCULAR PROCEDURES Final R esult documented in this encounter Visit Diagnoses Not on filedocumented in this encounter Care Teams Lease Purchase Truck Driver Relationship Specialty Start Date End Date Greer Rodriguez MD PCP - General 05/04/17 Tea Miramontes MD [address] [place] [address] Radiation Oncologist Radiation Oncology 03/28/18 James Carrion MD PhD [address], [place] [address] Medical Oncologist/Pyridine Operator Medical Oncology 03/28/18 05/09/21 Elier Allred MD [address] [facility] [address] [address] Referring Physician Neurology 02/27/19 documented as of this encounter
--- OUTSIDE RECORDS SUMMARY | 2025-01-25 10:17 | XMS_ITS | Clinical Summary ---
Author Organization [facility] Address [address] [place] [address] Care Team Providers Care Mds Manager Name Role Phone Greer Rodriguez MD Primary Care Provider + Elier Allred MD Unavailable [phone] Allergies Active Allergy Reactions Criticality Noted Date Comments Adhesive Tape-Silicones Other (See comments) Low Bruises and peels top layer of skin when removed Sumatriptan Other (See comments) Low 01/04/2014 States this is an adverse reaction Medications furosemide (LASIX) 20 mg tablet nightly Takes 2 tabs every night Active oxyCODONE-aceta minophen (PERCOCET) 10-325 mg per tabletIndicatio ns:Pain TK 1 T PO FID PRN P 0 8 Active POTASSIUM CHLORIDE ER 20 mEq CR tablet 4 8 Active sertraline (ZOLOFT) 100 mg tablet TK 1 T PO QD 4 8 Active metoprolol XL (TOPROL-XL) 200 mg 24 hr tablet TK 1 T PO QD 5 8 Active metoprolol XL (TOPROL-XL) 100 mg 24 hr tablet TK 1 T PO QD 4 9 Active albuterol HFA (PROVENTIL HFA,VENTOLIN HFA,PROAIR HFA) 90 mcg/actuation inhaler avg 2x a week Active omeprazole OTC (PriLOSEC OTC) 20 mg EC tablet daily Acti ve Movantik 25 mg tablet Take 1 tablet (25 mg total) by mouth every morning 1 Active naloxone (Narcan) 4 mg/actuation spray,non-aeros ol Active atorvastatin (LIPITOR) 20 mg tablet 3 Active diazePAM (VALIUM) 5 mg tablet Take 1 tablet (5 mg total) by mouth nightly 30 tablet 5 4 01/30/20 25 Active omeprazole (PriLOSEC) 20 mg capsule Take by mouth daily as needed 4 Active oxyCODONE (ROXICODONE) 10 mg tablet Take 1 tablet (10 mg total) by mouth every 4 (four) hours as needed Active ondansetron (ZOFRAN) 8 mg tabletIndicatio ns:Malignant neoplasm of brainstem (HCC) TAKE 1 TABLET BY MOUTH EVERY 8 HOURS NEEDED FOR NAUSEA OR VOMITIMG RELATED TO BRAIN STEM TUMOR 30 tablet 11 4 Active levETIRAcetam (KEPPRA) 1,000 mg tablet Take 1.5 tablets (1,500 mg total) by mouth 2 (two) times a day 270 tablet 3 5 12/12/19 26 Active promethazine (PHENERGAN) 50 mg tablet Take 0.5 tablets (25 mg total) by mouth 2 (two) times a day as needed for nausea or vomiting 30 tablet 5 01/11/20 25 Active Problems Problem Noted Date Diagnosed Date Fatigue 07/08/2017 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 Neurodiagnostics [address] [place] [address] Chey Thompson 12/15/2024 Telephone [facility] [address] [place] [id number] Chey Thompson 12/11/2024 11:30 AM CDT Office Visit [facility] Epilepsy [address] [place] [address] [place] [address] Mingo Nelson MD Seizure-like activity (HCC) (Primary Dx) from Last 3 Months Immunizations Immunization Administration Dates Next Due Influenza, Trivalent, Preservative Free, Intramu scular 06/13/2015 Pfizer SARS-CoV-2 Monovalent Vaccination (12+ Yrs) PURPLE 01/07/2021,12/17/2020 Pneumococcal Polysaccharide PPV23 01/10/2016 Tdap 06/27/2014 Surgical History Surgery Date Site/Laterality Comments TONSILLECTOMY Tonsillectomy - (Added by TW Conv) CHOLECYSTECTOMY Cholecystectomy - (Added by TW Conv) Medical History Medical History Date Comments Convulsions (HCC) Convulsions - (Added by TW Conv) Neoplasm of brain (HCC) Brain Tu mor - (Added by TW Conv) Anxiety state Anxiety (Symptom ) - (Added by TW Conv) Family History Medical History Relation Name Comments Cerebral aneurysm Other Family his tory of cerebral aneurysm - Relation: Grandparent (Added by TW Conv) Relation Name Status Comments Other Social History Tobacco Use Types Packs/Day Years Used Date Smoking Tobacco: Former Cigarettes 0.8 26.2 S tarted: 06/22/1998 Smokeless Tobacco: Never Comments Unknown Sex and Gender Information Value Date Recorded Sex Assigned at Not on file Legal Sex Female 8:31 AM CDT Gender Identity Female 04/10/2024 10:59 AM CDT Sexual Orientation Straight 03/06/2019 8: 15 AM CDT Obstetrics History Last Filed Vital Signs Vital Sign Reading Time Taken Comments Blood Pressure 155/88 12/11/2024 11:31 AM CDT Pulse 69 12/11/2024 11:31 AM CDT Temperature 36.4 C (97.6 F) 06/14/2023 1:13 PM CDT Respiratory Rate 18 06/14/2023 1:13 PM CDT Oxygen Saturation 95% 06/14/2023 1:13 PM CDT Inhaled Oxygen Concentration - - Weight 130.2 kg (287 lb) 12/11/2024 11:31 AM CDT Height 167.6 cm (5' 6 ) 12/11/2024 11:31 AM CDT Body Mass Index 46.32 12/11/2024 11:31 AM CDT Plan of Treatment Health Maintenance Due Date Last Done Comments Cervical Cancer Screening 1979 Colon Cancer Screening-Colonoscopy 1979 Depression Screening 1979 Hepatitis C Screening 1979 Varicella Vaccines (1 of 2 - 13+ 2-dose series) 11/21/1992 Hepatitis B Screening 11/21/1997 Regular Well Visit/Exam 18-64 11/21/1997 Breast Cancer Screening-Mammogram 11/29/2023 11/28/2022 Covid-19 Vaccine (3 - 2023-2 5 season) 2024 01/07/2021, 12/17/2020 DTaP/Tdap/Td Vaccine (2 - Td or Tdap) 06/27/2024 06/27/2014 Influenza Vaccine (Season Ended) 2025 06/13/2015 Pneumococcal vaccine <65 Aged Out 01/10/2016 No longer eligible based on patient's age to complete this topic HPV Vaccines Aged Out No longer eligi ble based on patient's age to complete this topic Medical Devices Implanted Type Area Assistant Director Of Public Works Device Identifier Shelf Expiration Date Model / Serial / Lot Titaneum Cranial Mesh/Plate/Scre ws Implanted:01/05 (Quantity not on file) Cranial Procedures Procedure Name Priority Date/Time Associated Diagnosis Comments SCREENING MAMMOGRAM BILATERAL W CARL Schedule Routine, Read Routine (OP Routine) 11/28/2022 2:53 PM CDT Screening mammogram, encounter for from Last 3 Months or Most Recently Relevant to Health Maintenance Results * Screening Mammogram Bilateral W Carl (11/28/2022 2:53 PM CDT) Anatomical Region Laterality Modality Breast Bilateral Mammography Narrative 12/01/2022 11:02 AM CDT Mammogram Technique: Bilateral Digital Breast Tomosynthesis, Bilateral C-view 2D Screening mammogram. Views obtained: bilateral craniocaudal and bilateral mediolateral oblique. Computer Aided Detection was performed. Mammogram Findings: No prior imaging studies are available for comparison. There are scattered areas of fibroglandular density. There is a focal asymmetry in the middle lower inner quadrant of the left breast. There is no suspicious abnormality in the right breast. Impression: Focal asymmetry in the left breast requires additional evaluation. Diagnostic mammogram and possible ultrasound of the left breast are recommended at this time. OVERALL FINAL ASSESSMENT: BI-RADS CATEGORY 0: Incomplete: Need additional imaging evaluation. Procedure Note Ann Sosa MD - 12/01/2022 Mammogram Technique: Bilateral Digital Breast Tomosynthesis, Bilateral C-view 2D Screening mammogram. Views obtained: bilateral craniocaudal and bilateral mediolateral oblique. Computer Aided Detection was performed. Mammogram Findings: No prior imaging studies are available for comparison. There are scattered areas of fibroglandular density. There is a focal asymmetry in the middle lower inner quadrant of theleft breast. There is no suspicious abnormality in the right breast. Impression: Focal asymmetry in the left breast requires additional evaluation. Diagnostic mammogram and possible ultrasound of the left breast are recommended at this time. OVERALL FINAL ASSESSMENT: BI-RADS CATEGORY 0: Incomplete: Need additional imaging evaluation. us Self Screening Mammogram IMG MAMMO PROCEDURES Fi nal Result from Last 3 Months or Most Recently Relevant to Health Maintenance Insurance [facility] MEDICARE MEDICARE [facility] IDPA MEDICARE Care Teams Mds Manager Relationship Specialty Start Date End Date Greer Rodriguez MD PCP - General 05/04/17 Elier Allred MD [address] [facility] [address] [address] Referring Physician Neurology 02/27/19
--- OUTSIDE RECORDS SUMMARY | 2025-01-25 10:17 | XMS_ITS | Clinical Summary ---
Author Organization [facility] Address [address] [place] [address] Care Team Providers Care Galvanizing Pot Runner Name Role Phone Greer Rodriguez MD Primary Care Provider [phone] Source Comments [facility],non-owned Affiliates and Associated Physician Practices is amultiple site organization consisting of ambulatory clinics and hospital sitesin [place], [place], [place] and [place]. This disclosure is being madepursuant to the Care Everywhere program and may not contain all information available regarding this patient. Last updated 18.[facility] Active Problems Problem Noted Date Diagnosed Date Neoplasm of brain 01/06/2016 Immunizations Immunization Administration Dates Next Due PNEUMOCOCCAL PPSV23 01/10/2016 Social History Tobacco Use Types Packs/Day Years Used Date Smoking Tobacco: Every Day Cigarettes Alcohol Use Standard Drinks/Week Comments No 0 (1 standard drink = 0.6 oz pur e alcohol) Comments Unknown Sex and Gender Information Value Date Recorded Sex Assigned at Not on file Legal Sex Female 5:41 PM MUSEUM CURATOR Gender Identity Not on file Sexual Orientation Not on file Last Filed Vital Signs Vital Sign Reading Time Taken Comments Blood Pressure 152/92 01/23/2016 9:52 AM CDT Pulse 94 01/23/2016 9:52 AM CDT Temperature 37 C (98.6 F) 01/10/2016 4:00 PM CDT Respiratory Rate 20 01/10/2016 4:00 PM CDT Oxygen Saturation 95% 01/10/2016 4:00 PM CDT Inhaled Oxygen Concentration - - Weight 113.4 kg (250 lb) 01/23/2016 9:52 AM CDT Height 167.6 cm (5' 6 ) 01/08/2016 7:33 PM CDT Body Mass Index 40.35 01/08/2016 7:33 PM CDT Plan of Treatment Health Maintenance Due Date Last Done Comments COLOGUARD (AGES 45-75) - COL ON CA SCREENING 1979 COLON MONITORING 1979 COLONOSCOPY - COLON CA SCREENING 1979 CT COLONOGRAPHY - COLON CA SCREENING 1979 Colorectal Cancer Screening 1979 FIT - COLON CA SCREENING 1979 FLEX SIG - COLON CA SCREENING 1979 LIPID TESTING 1979 MAMMOGRAM 1979 MEDICARE AWV 12 MONTHS 1979 PAP SMEAR 1979 DTAP/TDAP/TD VACCINES (1 - Tdap) 11/21/1998 HEPATITIS B VACCINE (1 of 3 - 19+ 3-dose series) 11/21/1998 PNEUMOCOCCAL VACCINE (2 of 2 - PCV) 01/09/2017 01/10/2016 COVID-19 VACCINE (1 - 2023-2 5 season) 2024 DEPRESSION SCREENING 09/13/2024 INFLUENZA VACCINE (Season Ended) 2025 ZOSTER VACCINE (1 of 2) 11/21/2029 HEPATITIS C SCREENING Completed 12/25/2015 HIV SCREENING Completed 12/25/2015 HIB VACCINE Aged Out No longer eligi ble based on patient's age to complete this topic HPV VACCINE Aged Out No longer eligi ble based on patient's age to complete this topic MENINGOCOCCAL (Group B) VACC INE SHARED DECISION-MAKING Aged Out No longer eligibl e based on patient's age to complete this topic MENINGOCOCCAL GROUPS A/C/Y/W VACCINE Aged Out No longer eligible b ased on patient's age to complete this topic Procedures Procedure Name Priority Date/Time Associated Diagnosis Comments HEPATITIS SCREEN ACUTE Routine 12/25/2015 3:23 PM CDT HIV-1 HIV-2 ANTIGEN/ANTIBODY Routine 12/25/2015 3:23 PM CDT from Last 3 Months or Most Recently Relevant to Health Maintenance Results * HIV-1 HIV-2 ANTIGEN/ANTIBODY (12/25/2015 3:23 PM CDT) HIV Antigen/Antibod y 1 & 2 Non-reacti ve [facility] Comment: Neither HIV-1 p24 Antigen nor HIV-1/HIV-2 Antibodies are detected. Blood specimen (specimen) BLOOD SPECIMEN / Unknown 12/25/2015 3:23 PM CDT 12/25/2015 4:43 PM CDT Pb Clements MD LAB - HEMATOLOGY ORDERABLES Final Result Performing Organization Address [facility]/ZIP Co de Phone Number [address] [phone] * HEPATITIS SCREEN ACUTE (12/25/2015 3:23 PM CDT) Hepatitis A Virus Antibody IgM Non-react [facility] Hepatitis B Virus Surface Antigen Non-react [facility] Hepatitis B Core Virus Antibody IgM Non-react [facility] Hepatitis C Antibody Non-react [facility] Comment: Hepatitis C Antibody screen indicates no serologic evidence of past or current infection with Hepatitis C Virus. Patients with unexplained liver disease who are immunocompromised or suspected of having acute Hepatitis C infection may benefit from Nucleic Acid Test (RIGO) for Hepatitis C Viral RNA to confirm Hepatitis C status. Blood specimen (specimen) BLOOD SPECIMEN / Unknown 12/25/2015 3:23 PM CDT 12/25/2015 4:43 PM CDT Pb Clements MD LAB - CHEMISTRY ORDERABLES F inal Result [address] [phone] from Last 3 Months or Most Recently Relevant to Health Maintenance Insurance [facility] * Guarantor: BRUNA CARO Account Type Relation to Patient Date of Phone Billing Address Personal/Family [address] [place] [address] MEDICARE [place] - [place] * Guarantor: TORYBRUNA Account Type Relation to Patient Date of Phone Billing Address Personal/Family [address] [place] [address] MEDICARE Member Subscriber Plan / Payer (Ef fective for All Dates) Name:Bruna Caro Member ID:[id number] Relation to Subscriber:Self Name:Bruna Caro Subscriber ID:[id number] Payer ID:Not on file Group ID:Not on file Type:Medicare Address: [address] [id number] [place] - [place] * Guarantor: BRUNA CARO Account Type Relation to Patient Date of Phone Billing Address Personal/Family [address] [place] [address] MEDICARE [place]ID - [place] Advance Directives Documents on File Type Date Recorded Patient Cotton Inspector Expl anation Advance Directives and Livin g Will 01/06/2016 12:00 AM Care Teams Galvanizing Pot Runner Relationship Specialty Start Date End Date Greer Rodriguez MD [address] [place] [address] PCP - General 01/13/16
--- OUTSIDE RECORDS SUMMARY | 2025-01-25 10:18 | XMS_ITS | Data Portability ---
Author Organization [place] - [facility], Main Office Address [address] [place] [address] Assessment No assessment recorded. Plan of Treatment Reminders Order Date Submit Date Provider Last Modified By Organization Details Last Modified Time Details Appointments None recorded. Lab None recorded. Referral None recorded. Procedures None recorded. Surgeries None recorded. Imaging None recorded. Medication Orders diazepam 5 mg tablet 2022 023 [id number], [address] , [place], [place], [id number], 11:50:42 Patient TargetsNo targets recorded. Patient Instructions Encounter Date Encounter Id Patient Instructions Last Modified By Organization Details Last Modified Time 11/12/2023 [id number] dementia rating scale-2* SRI Not available 11/12/2023 12:13:30 multi-dimensiona l health assessment questionnaire* SRI Not available 11/12/2023 12:14:08 care plan* SRI Not available 11/11 12:13:51 advance directiv es: care instructions Not available 11/12/2023 09:33:34 advance care planning: care instructions Not available 11/12/2023 09:33:34 [place] Advance Directives Not available 11/12/2023 09:33:34 Personalized [facility] lt Plan and Screening Recommendations Advance Directives - Do you have one? Yes Advance Directives - Do we have your advance directive on file in your health record? Primary Prevention/Interven tion (prevents or decreases the chance of common diseases from occurring) Smoking Risk: Smoker Refer to attached smoking cessation handouts Refer to attached handouts and prescription will be sent to pharmacy Continue to consider stopping smoking and call if we can assist you Alcohol Misuse Screening: Negative Weight: Appropriate Overwei ght Physical activity: Need more exercise/physical activity Nutrition: Good Average Fall Risk (screened today): High Refer to attached handout Preventing Falls: After your Visit Recommend regular use of cane or walker Vaccines Pneumococcal: not needed Influenza: declines Chronic Disease Risks Stroke: Low Risk I have no recommendations Act clayton diagnosis, Continue current treatment plan Heart Attack: Low risk I have no recommendations Act clayton diagnosis, Continue current treatment plan Clogging of the Arteries: Low risk I have no recommendations Act clayton diagnosis, Continue current treatment plan Diabetes: Low Risk Active diagnosis, Continue current treatment plan Secondary Prevention/Interven tion (detects treatable diseases before they may cause symptoms, disability, or ) Breast Cancer Screening with mammogram: Your next mammogram: Ordered Recommended today Cervical/Uterine/Ov fidelina Cancer Screening: Your next PAP/pelvic in: Referral to ms sql server developer Recomm ended today Osteoporosis Screening: No screening necessary Date Screening Last Performed: Colon Cancer Screening: No screening necessary Date Screening Last Performed: Eye Disease Screening: Ordered Recommended today Dementia Risk: Low Depression Screening: Negative Active diagnosis, Continue current treatment plan Not available 11/12/2023 09:30:33 Reason for Referral None Reported. Results Created Date Observation Date Name Description Value Unit Range Abnormal Flag Note LastModifiedBy Organization Detail LastModifiedTime 12/26/1912/25/2022 CT, face, w/ contr ast No observ ation record ed. [email or web address] [address], [address], 01/04/2023 14:03:10 08/31/20 24 08/31/2024 imagi ng/di agnos tic resul t No observ ation record ed. [address], [address], 08/31/2024 16:16:07 09/01/2008/31/2024 imagi ng/di agnos tic resul t No observ ation record ed. [address], [address], 09/01/2024 00:19:07 09/03/20 24 09/03/2024 imagi ng/di agnos tic resul t No observ ation record ed. [address], [place], [address], 09/03/2024 15:15:05 10/16/19 25 10/16/2024 imagi ng/di agnos tic resul t No observ ation record ed. [facility] [address] [facility] [address] [facility] [address], [place], [address], 10/16/2024 16:40:05 Result Notes None recorded. Problems Name Problem SNOMED Code Status Onset Date Resolution Date Notes Provider Name and Address Organization Details Recorded Time Benign essential hypertension 5594086 Active Not Available [facility] 3 00:53:41 Injury of ankle 987435953 Active Not Available [facility] 3 00:53:41 Neoplasm of brain 949587627 Active 2018 Not Available [facility] 3 00:53:41 Cellulitis 704476080 Active Not Available [facility] 3 00:53:41 Seizure disorder 160091910 Active 2021 Not Available [facility] 3 00:53:41 Computed tomography result abnormal 429286029 Active Not Available [facility] 3 00:53:41 Impacted cerumen 07993810 Active Not Available [facility] 3 00:53:41 Cobalamin deficiency 019380307 Active Not Available [facility] 3 00:53:41 Syncopal vertigo 665076413 Active Not Available [facility] 3 00:53:42 Gallstone 181090933 Active Not Available [facility] 3 00:53:42 Sore throat 788173793 Active Not Available [facility] 3 00:53:42 Knee pain Active Not Available [facility] 3 00:53:42 Vitamin D deficiency 27140387 Active Not Available [facility] 3 00:53:42 Migraine 87603575 Active Not Available [facility] 3 00:53:42 Anxiety 49821189 Active Not Available [facility] 3 00:53:42 Hyperlipidemi a 34793445 Active Not Available [facility] 3 00:53:42 Essential hypertension 11387543 Active Not Available [facility] 3 00:53:42 Weight gain 7987538 Active Not Available [facility] 3 00:53:42 Tooth disorder 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 Active 2022 [facility] [address], [place], [address] , [employer] [facility] 3 12:54:34 Staphylococcu s saprophyticus or Staphylococcu s hominis 897198883 Active 2022 [facility] [address], [address], [place], [address] , [employer] [facility] 3 17:57:13 Conjunctiviti s 9838825 Active [address], [place], [address] , [employer] [facility] 3 16:33:52 Mammography abnormal 693328473 Active 2022 [facility] [address], [place], [address] , [employer] [facility] 3 09:46:56 Edema of lower extremity 864947868 Active [address], [place], [address] , [employer] [facility] 3 14:16:50 Gastroesophag eal reflux disease without esophagitis 042723372 Active 2022 [facility] [address], [place], [address] , [employer] [facility] 3 14:17:07 Seizure 58925431 Active 2023 JAYLEN Mackay [address], [place], [address] , [employer] [facility] [employer] [facility] 4 17:04:26 Smoker 93971338 Active 2024 Gaylachris Hernandez, [facility] [address], [place], [address] , [employer] [facility] [employer] 5 15:06:30 Problem Notes None recorded. Procedures Surgical History Date Name Laterality Status Provider Name and Address Organization Details Recorded Time 11/12/19 Medicare Wellness CPT Code, subsequent completed Eliane Sanchez RN [facility] [employer] [facility] 11/12/2023 09:13:29 Tonsillectomy completed Viviane Euceda MA [facility] [employer] [facility] 2024 11:56:51 Cholecystectomy completed Viviane Euceda MA [facility] [employer] [facility] 2024 11:56:57 Hysterectomy completed Viviane Euceda MA [facility] [employer] [facility] 2024 11:57:06 craniotomy completed Viviane Euceda MA [facility] [employer] [facility] 2024 11:57:19 Imaging Results Imaging Date Name Status LastModified by Organiz ation Details LastModified Time 12/25/2022 CT, face, w/ contrast completed [email or web address] [address], [address], 01/04/2023 14:03:10 08/31/2024 imaging/diagn ostic result active [address], [address], 08/31/2024 16:16:07 08/31/2024 imaging/diagn ostic result active [address], [address], 09/01/2024 00:19:07 09/03/2024 imaging/diagn ostic result active [address], [address], 09/03/2024 15:15:05 10/16/2024 imaging/diagn ostic result active [facility] [address], [place], [address], 10/16/2024 16:40:05 Procedure Notes None recorded. Medical Equipment None Reported. Allergies Allergen ID Allergen Name Allergen Category Reaction Reaction Severity Criticality Documentation Date Start Date Code Code System Note Provider Name and Address Organization Details Recorded Time 1321 Imitrex medicatio n chest pain Not available Not available 11/11/20222013 01148 3 RxNorm Not Available [facility] 3 01:02:08 1322 adhesive environme nt,medica tion Not available Not available Not available 11/11/2022 [id number] UNK Not Available [facility] 3 01:02:08 Medications Name Sig Start Date Stop Date Status Note LastModified by Organization Details LastModified Time carisoprodo l 350 mg tablet TK 1 T PO BID 09/09 completed Not Available Not Available Not Available cyclobenzap rine 10 mg tablet 05/19 completed Not Available Not Available Not Available amoxicillin 500 mg capsule TAKE 1 CAPSULE BY MOUTH EVERY 8 HOURS FOR 10 DAYS 03/02 completed Not Available Not Available Not Available nystatin 100,000 unit/mL oral suspension 12/12 completed Not Available Not Available Not Available prednisone 10 mg tablet TAKE 4 TABLETS BY MOUTH DAILY FOR 3 DAYS. 3 TABLETS DAILY X3 DAYS. 2 TABLETS DAILY X3 DAYS. THEN 1 TABLET DAILY X3 DAYS. 11/22 completed Not Available Not Available Not Available atorvastati n 20 mg tablet TAKE 1 TABLET BY MOUTH EVERY DAY active Not Available Not Available No t Available nicotine 14 mg/24 hr daily transdermal patch Apply 1 patch every day by transderm al route. 2024 active Not Available Not Available Not Avai lable clindamycin HCl 300 mg capsule TAKE 1 CAPSULE BY MOUTH 3 TIMES DAILY WITH FOOD 11/22 completed Not Available Not Available Not Available azithromyci n 250 mg tablet TK 2 TS PO AT ONCE TODAY THEN TK 1 T PO ONCE D FOR 4 DAYS 03/02 completed Not Available Not Available Not Available pravastatin 40 mg tablet TAKE 1 TABLET BY MOUTH DAILY 05/19 completed Not Available Not Available Not Available ibuprofen 800 mg tablet TAKE 1 TABLET BY MOUTH THREE TIMES DAILY NEEDED 11/22 completed Not Available Not Available Not Available alprazolam 1 mg tablet TK 1 T PO D PRIOR TO RADIATION active Not Available Not Available No t Available Lidocaine Viscous 2 % mucosal solution active Not Available Not Available Not Available ofloxacin 0.3 % eye drops 12/12 completed Not Available Not Available Not Available metoprolol tartrate 100 mg tablet TAKE 1 TABLET (100 MG) BY ORAL ROUTE 2 TIMES PER DAY active Not Available Not Available No t Available tizanidine 4 mg tablet 11/22 completed Not Available Not Available Not Available metoprolol succinate ER 50 mg tablet,exte nded release 24 hr TAKE 1 TABLET BY MOUTH EVERY DAY, TAKE WITH 100MG TABLET 03/02 completed Not Available Not Available Not Available levetiracet am 500 mg tablet TAKE 1 TABLET BY MOUTH TWICE DAILY 11/22 completed Not Available Not Available Not Available methylpheni date 10 mg tablet 09/12 completed Not Available Not Available Not Available hydrocodone 5 mg-acetamin ophen 325 mg tablet TK 1 TO 2 TS PO Q 6 H PRF PAIN. 11/25 completed Not Available Not Available Not Available Cheratussin DAC 30 mg-10 mg-100 mg/5 mL oral syrup Take 5 mL every 6 hours by oral route. active Not Available Not Available No t Available naloxone 0.4 mg/mL injection solution 12/12 completed Not Available Not Available Not Available ondansetron HCl 8 mg tablet TAKE 1 TABLET BY MOUTH EVERY 8 HOURS NEEDED FOR NAUSEA OR VOMITIMG RELATED TO BRAIN STEM TUMOR active Not Available Not Available No t Available metoprolol succinate ER 200 mg tablet,exte nded release 24 hr TAKE 1 TABLET BY MOUTH EVERY DAY active Not Available Not Available No t Available ondansetron HCl 4 mg tablet TK 1 T PO Q 6 H PRN N 04/18 completed Not Available Not Available Not Available methylpheni date 5 mg tablet active Not Available Not Available Not Available prednisone 20 mg tablet 01/29 completed Not Available Not Available Not Available metoprolol succinate ER 100 mg tablet,exte nded release 24 hr TAKE 1 TABLET BY MOUTH EVERY DAY active Not Available Not Available No t Available sertraline 100 mg tablet TAKE 1 TABLET BY MOUTH EVERY DAY active Not Available Not Available No t Available cyanocobala min (vit B-12) 1,000 mcg tablet Take 1 tablet every day by oral route for 90 days. 11/22 completed Not Available Not Available Not Available valacyclovi r 500 mg tablet 12/12 completed Not Available Not Available Not Available ciprofloxac in 500 mg tablet TK 1 T PO BID 01/29 completed Not Available Not Available Not Available hydrocodone 10 mg-acetamin ophen 325 mg tablet TK 1 T PO Q 6 H PRN P 05/19 completed Not Available Not Available Not Available acyclovir 800 mg tablet TK 1 T PO 5 TIMES D PRN 11/22 completed Not Available Not Available Not Available ondansetron 8 mg disintegrat ing tablet TAKE 1 TABLET BY MOUTH EVERY 8 HOURS FOR 2 DAYS 09/09 completed Not Available Not Available Not Available baclofen 20 mg tablet TK 1 T PO TID PRN 12/12 completed Not Available Not Available Not Available ketorolac 0.5 % eye drops 12/12 completed Not Available Not Available Not Available ofloxacin 0.3 % ear drops INSTILL 10 DROPS INTO AFFECTED EAR ONCE DAILY FOR 7 DAYS. active Not Available Not Available No t Available amoxicillin 875 mg tablet TAKE 1 TABLET BY MOUTH EVERY 12 HOURS FOR 7 DAYS 03/02 completed Not Available Not Available Not Available potassium chloride ER 20 mEq tablet,exte nded release(par t/cryst) TAKE 1 TABLET BY MOUTH EVERY DAY 11/22 completed Not Available Not Available Not Available prednisolon e acetate 1 % eye drops,suspe nsion 12/12 completed Not Available Not Available Not Available lorazepam 0.5 mg tablet TK 1 T PO Q 8 HOURS PRF ANXIETY 09/09 completed Not Available Not Available Not Available triamcinolo ne acetonide 0.1 % dental paste JOHN TID 09/09 completed Not Available Not Available Not Available Lipitor 40 mg tablet Take 1 tablet every day by oral route. active Not Available Not Available No t Available oxycodone-a cetaminophe n 10 mg-325 mg tablet TAKE 1 TABLET BY MOUTH EVERY 4-6 HOURS NEEDED active Not Available Not Available No t Available dexamethaso ne 1 mg tablet 08/10 completed Not Available Not Available Not Available diazepam 2 mg tablet TK 1 T PO QHS 08/10 completed Not Available Not Available Not Available promethazin e 50 mg tablet TAKE 1 TABLET BY MOUTH EVERY 6 HOURS NEEDED active Not Available Not Available No t Available baclofen 10 mg tablet TK 1 TO 2 TS PO TID PRN 09/12 completed Not Available Not Available Not Available benzonatate 100 mg capsule TAKE 1-2 CAPSULES BY MOUTH 3 TIMES DAILY NEEDED FOR COUGH active Not Available Not Available No t Available dexamethaso ne 2 mg tablet TK PO UTD 08/10 completed Not Available Not Available Not Available hydrocodone 7.5 mg-acetamin ophen 325 mg tablet 11/25 completed Not Available Not Available Not Available cephalexin 500 mg capsule TK 1 C PO Q 8 H FOR 10 DAYS 12/12 completed Not Available Not Available Not Available dexamethaso ne 4 mg tablet 08/10 completed Not Available Not Available Not Available prednisone 50 mg tablet TK 1 T PO D 12/12 completed Not Available Not Available Not Available promethazin e 25 mg tablet TAKE 1 TABLET BY MOUTH EVERY 6 HOURS NEEDED FOR NAUSEA active Not Available Not Available No t Available polymyxin B sulfate 10,000 unit-trimet hoprim 1 mg/mL eye drops INSTILL 1 DROP INTO AFFECTED EYE(S) BY OPHTHALMI C ROUTE EVERY 6 HOURS 01/29 completed Not Available Not Available Not Available metoprolol tartrate 50 mg tablet TAKE 3 TABLETS EVERY DAY active Not Available Not Available No t Available gabapentin 300 mg capsule 300 mg po TID 08/10 completed Not Available Not Available Not Available omeprazole 20 mg capsule,del ayed release TAKE 1 CAPSULE BY MOUTH EVERY DAY NEEDED 2024 active Not Available Not Available Not Avai lable acetaminoph en 300 mg-codeine 60 mg tablet 11/22 completed Not Available Not Available Not Available furosemide 20 mg tablet TAKE 1 TO 2 TABLETS BY MOUTH EVERY DAY NEEDED FOR SWELLING active Not Available Not Available No t Available gabapentin 100 mg capsule Take 2 capsules every day by oral route at bedtime. 08/10 completed Not Available Not Available Not Available ergocalcife rol (vitamin D2) 1,250 mcg (50,000 unit) capsule TAKE 1 CAPSULE BY MOUTH EVERY WEEK 11/22 completed Not Available Not Available Not Available Imitrex 100 mg tablet Take 1 tablet every day by oral route. 04/25 completed Not Available Not Available Not Available lorazepam 1 mg tablet 08/10 completed Not Available Not Available Not Available levofloxaci n 500 mg tablet TK 1 T PO QD 05/19 completed Not Available Not Available Not Available albuterol sulfate HFA 90 mcg/actuati on aerosol inhaler INHALE 2 PUFFS BY MOUTH EVERY 4 HOURS NEEDED active Not Available Not Available No t Available neomycin 3.5 mg-polymyxi n 10,000 unit-hydroc ort 10 mg/mL eye drop,susp INSTILL 1 DROP INTO AFFECTED EYE(S) BY OPHTHALMI C ROUTE EVERY 4 HOURS WHILE AWAKE active Not Available Not Available No t Available SF 5000 Plus 1.1 % dental cream BRUSH NORMALLY WITH A PEA SIZED AMOUNT. DO NOT RINSE. WAIT 1 HOUR THEN USE MOUTH WASH 12/12 completed Not Available Not Available Not Available medroxyprog esterone 150 mg/mL intramuscul ar suspension ADMINISTE R 1 ML IN THE MUSCLE EVERY 3 MONTHS 12/12 completed Not Available Not Available Not Available naproxen 500 mg tablet 05/19 completed Not Available Not Available Not Available diazepam 5 mg tablet TAKE 1 TABLET BY MOUTH TWICE DAILY NEEDED FOR SEIZURES active Not Available Not Available No t Available amoxicillin 875 mg-potassiu m clavulanate 125 mg tablet TAKE 1 TABLET BY MOUTH EVERY 12 HOURS 11/22 completed Not Available Not Available Not Available Senna-S 8.6 mg-50 mg tablet TK 1 T PO QD 11/22 completed Not Available Not Available Not Available medroxyprog esterone 150 mg/mL intramuscul ar syringe INJECT 1 ML INTRAMUSC ULAR Q 3 MONTHS 11/13 completed Not Available Not Available Not Available topiramate 50 mg tablet TK 1 T PO BID 05/19 completed Not Available Not Available Not Available eszopiclone 1 mg tablet active Not Available Not Available Not Available Lice Treatment 1 % topical liquid APPLY TO SCALP ONCE DIRECTED, THEN RINSE THOROUGHL Y 08/10 completed Not Available Not Available Not Available chlorhexidi ne gluconate 0.12 % mouthwash 12/12 completed Not Available Not Available Not Available diazepam 5 mg every night at bedtime active Not Available Not Available No t Available levetiracet am 1,000 mg tablet TAKE 1 AND 1/2 TABLETS BY MOUTH TWICE DAILY active Not Available Not Available No t Available Advair HFA 115 mcg-21 mcg/actuati on aerosol inhaler INHALE 2 PUFFS BY MOUTH EVERY 12 HOURS 11/22 completed Not Available Not Available Not Available omeprazole 20 mg tablet,abilio yed release Take 1 tablet every day by oral route as needed for 30 days. active Not Available Not Available No t Available oxycodone 10 mg tablet TAKE 1 TABLET BY MOUTH EVERY 4 HOURS active Not Available Not Available No t Available Combivent Respimat 20 mcg-100 mcg/actuati on solution for inhalation INHALE 1 PUFF BY MOUTH FOUR TIMES DAILY. SPACE EVENLY WHILE AWAKE 11/22 completed Not Available Not Available Not Available Virtussin AC 10 mg-100 mg/5 mL oral liquid TK 5 ML PO Q 6 H COU 12/12 completed Not Available Not Available Not Available Movantik 25 mg tablet TAKE 1 TABLET BY MOUTH EVERY MORNING NEEDED active Not Available Not Available No t Available naloxone 4 mg/actuatio n nasal spray 1 NEEDED SIGNS/SYM PTOMS OF OVERDOSE. MAY REPEAT 2ND DOSE IF NEEDED. CALL 911 AFTER DOSE active Not Available Not Available No t Available Ubrelvy 100 mg tablet 11/22 completed Not Available Not Available Not Available Vitals Date Recorded Body mass index (BMI) Body height Oxygen saturation Oxygen saturation in Arterial blood by Pulse oximetry Heart rate Body temperature Body weight Systolic blood pressure Diastolic blood pressure Provider Name and Address Organization Details Last Updated DateTime 2 42.8 kg/m2 167.64 cm 93 % 93 % 85 /min 97.5 [degF] 105354. 98 g 126 mm[Hg] 80 mm[Hg] Not Available [facility] 3 00:51:24 Date Recorded Body height Body mass index (BMI) Body weight Body temperature Heart rate Oxygen saturation Oxygen saturation in Arterial blood by Pulse oximetry Systolic blood pressure Diastolic blood pressure Provider Name and Address Organization Details Last Updated DateTime 3 167.64 cm 43.9 kg/m2 085071. 12 g 96.3 [degF] 64 /min 96 % 96 % 158 mm[Hg] 82 mm[Hg] Liv Le RN [place] [facility] 3 09:21:57 Date Recorded Body height Body mass index (BMI) Body weight Body temperature Heart rate Oxygen saturation Oxygen saturation in Arterial blood by Pulse oximetry Systolic blood pressure Diastolic blood pressure Provider Name and Address Organization Details Last Updated DateTime 4 167.64 cm 45.5 kg/m2 949521. 05 g 95.7 [degF] 85 /min 97 % 97 % 122 mm[Hg] 78 mm[Hg] Eliane Sanchez RN [facility] [employer] [facility] 4 09:16:46 Date Recorded Body height Body mass index (BMI) Body weight Body temperature Heart rate Oxygen saturation Oxygen saturation in Arterial blood by Pulse oximetry Inhaled oxygen flow rate Pain severity - 0-10 verbal numeric rating [Score] - Reported Systolic blood pressure Diastolic blood pressure Provider Name and Address Organization Details Last Updated DateTime 5 167.64 cm 46.5 kg/m2 594695. 6 g 96.6 [degF] 80 /min 95 % 95 % 2 L/min 6 140 mm[Hg] 90 mm[Hg] Viviane Euceda MA [facility] [employer] [facility] 5 11:49:01 Social History Question Answer Notes LastModified by Organizat ion Details LastModified Time Tobacco Smoking Status Former Smoker Viviane Euceda MA [facility] [employer] [facility] 2024 11:55:45 What Is Your Level Of Caffeine Consumption? Heavy [id number] Information not available 11/11/2022 How Much Tobacco Do You Chew? None [id number] Information not available 11/11/2022 In The 14 Days Before Symptom Onset, Have You Had Close Contact With A Laboratory-confi rmed COVID-19 While That Case Was Ill? No Information not available 2024 In The 14 Days Before Symptom Onset, Have You Had Close Contact With A Person Who Is Under Investigation For COVID-19 While That Person Was Ill? No Information not available 2024 What Type Of Diet Are You Following? REGULAR [id number] Information not available 11/11/2022 Which Illicit Or Recreational Drugs Have You Used? Marijuana Information not available 2024 Have There Been Any Changes To Your Family Or Social Situation? No Information not available 2024 When Did You Quit Smoking? 1-5yearssincelastc igarette Aug 2024 Information not available 2024 Do You Use Insect Repellent Routinely? No Information not available 2024 Where Do You Live? [facility] Information not available 2024 What Was The Date Of Your Most Recent Tobacco Screening? 2024 Information not available 2024 How Many Children Do You Have? -1 Information not available 2024 Do You Have Any Pets? Yes Information not available 2024 What Is Your Relationship Status? Information not available 2024 Do You Use Your Seat Belt Or Car Seat Routinely? Yes Information not available 2024 Do You Have Smoke And Carbon Monoxide Detectors In Your Home? Yes Information not available 2024 At What Age Did You Start Smoking Tobacco? 17 [id number] Information not available 11/11/2022 Are You Passively Exposed To Smoke? No Information not available 2024 Are There Any Smokers In Your House? No Information not available 2024 How Much Tobacco Do You Smoke? 1 PPD [id number] Information not available 11/11/2022 Do You Participate In Social Media? Yes Information not available 2024 Do You Use Sunscreen Routinely? Yes [id number] Information not available 11/11/2022 Have You Recently Traveled Abroad? No Information not available 2024 Have You Used IV Drugs? No Information not available 2024 Are You Currently In School? No Information not available 2024 Do You Have Any Dietary Restrictions? No Information not available 2024 Sex: Female Functional Status Question Answer Note LastModified by Organizat ion Details LastModified Time Do you use any illicit or recreational drugs? Yes Information not available 2024 Do you or have you ever used any other forms of tobacco or nicotine? No Information not available 2024 What is your level of alcohol consumption? None Information not available 2024 Do you or have you ever used smokeless tobacco? Never used smokeless tobacco [id number] Information not available 11/11/2022 Are you currently employed? No Information not available 2024 What is your occupation? Disability [id number] Information not available 11/11/2022 Do you or have you ever used e-cigarettes or vape? Never used electronic cigarettes [id number] Information not available 11/11/2022 What is your exercise level? Occasional [id number] Information not available 11/11/2022 Mental Status Question Answer Note LastModified by Organization D etails LastModified Time Do you feel stressed (tens [id number]|2025-01-25 10:18:00|2025-01-25 10:17:00|XMS_ITS|CAPOG ROJELIO|External Medical Summaries|[id number]|" Referral Summary Created on: January 25, 2025 Bruna Caro : 1980 Sex: Female Author Organization [facility] Address [address] [place] [address] Care Team Providers Care Estimator And Drafter Name Role Phone Greer Rodriguez MD Primary Care Provider + Elier Allred MD Unavailable [phone] Encounters Date Type Department Care Team Description 12/18/[address] [facility] Neurodiagnostics [address] [place] [address] Chey Thompson 12/15/[address] 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 Immunizations Immunization Administration Dates Next Due Influenza, Trivalent, Preservative Free, Intramu scular 06/13/2015 Pfizer SARS-CoV-2 Monovalent Vaccination (12+ Yrs) PURPLE 01/07/2021,12/17/2020 Pneumococcal Polysaccharide PPV23 01/10/2016 Tdap 06/27/2014 Social History Tobacco Use Types Packs/Day Years Used Date Smoking Tobacco: Former Cigarettes 0.8 26.2 S tarted: 06/22/1998 Smokeless Tobacco: Never Comments Unknown Sex and Gender Information Value Date Recorded Sex Assigned at Not on file Legal Sex Female 8:31 AM CDT Gender Identity Female 04/10/2024 10:59 AM CDT Sexual Orientation Straight 03/06/2019 8: 15 AM CDT Last Filed Vital Signs Vital Sign Reading [...] 12/11/2024 11:31 AM CDT Plan of Treatment Not on file Medical Devices Implanted Type Area Veterinarian Epidemiologist Device Identifier Shelf Expiration Date Model / [...] Most Recently Relevant to Health Maintenance Insurance [facility] MEDICARE MEDICARE [facility] MEDICARE Care Teams Estimator And Drafter Relationship Specialty Start Date End Date Greer Rodriguez MD PCP - General 05/04/17 Elier Allred MD [address] [place] [address] [place] [address] Referring Physician Neurology 02/27/19 "
--- NOTE | 2025-01-25 12:08 | WPDSIXMINUTE ---
Six Minute Walk Procedure Procedure Performed Pulmonary Stress Test (6 min walk) Six Minute Walk Six Minute Walk: This is a 6 minute walk test. The test was performed and interpreted in accordance with the 2014 ERS/ATS task force guidelines. Findings: The patient's resting room air oxygen saturation measured by pulse oximetry was 96%, the heart rate was 70 bpm, and the modified Rj dyspnea score was 0.5. Patient ambulated for 305 meters and oxygen saturation remained 94 to 95%. At the end of the study the heart rate was 97 bpm and the modified Rj dyspnea score was 2. The patient did not qualify for supplemental oxygen at rest or with ambulation. There are no prior studies for comparison.
--- NOTE | 2025-01-25 12:09 | WPDPFTINT ---
PFT Procedure Performed PFT Procedure Performed Spirometry with Pre/Post Bronchodilator Plethysmography (Lung Vol) Diffusing Cap (DLCO) Flow Vol Loop PFT Interpretation This is a pulmonary function test with pre and post-bronchodilator spirometry, plethysmography and diffusing capacity. The test was performed and results interpreted in accordance with the 2019 and 2005 ATS/ERS Task Force guidelines respectively using the Global Lung Function Initiative-2012 reference equations. Patient demonstrated good effort and cooperation. Reproducibility criteria were met. The quality of the pre bronchodilator spirometry maneuver was Grade B and post bronchodilator spirometry maneuver was Grade A. Findings: Spirometry: The contour the inspiratory and expiratory flow tracing are normal. The pre bronchodilator FVC is 3.10 L, 81% predicted. The pre bronchodilator FEV1 is 2.22 L, 72% predicted. The pre bronchodilator FEV1: FVC ratio 72%. The post bronchodilator FVC is 3.00 L, representing a 3% decrease. The post bronchodilator FEV1 is 2.25 L, representing 1% increase. The post bronchodilator FEV1: FVC ratio 75%. Plethysmography: Total lung capacity is 5.34 L, 99% predicted. The functional residual capacity is 2.13 L, 71% predicted. The residual volume is 2.11 L, 118% predicted. Diffusing capacity: The diffusing capacity unadjusted for hemoglobin and carboxyhemoglobin is 20.9, 87% predicted. The diffusing capacity adjusted for alveolar volume is 5.08, 111% predicted. Impression: The FEV1 is less than 80% predicted and the FEV1: FVC ratio is greater than 70% consistent with Preserved Ratio Impaired Spirometry (PRISm) with a normal FVC. There is no significant improvement after inhaling a single dose of albuterol. The lung volumes are normal. The diffusing capacity is normal. There are no prior studies for comparison
== END 2025-01-25 10:14 | disposition home or self-care (01) ==
LOC: ANHPFT 10:15
PROVIDERS: PCP Nurse Practitioner Family; Visit Provider Internal Medicine Critical Care Medicine
DX: R94.2 Abnormal results of pulmonary function studies (principal); R06.2 Wheezing; F12.90 Cannabis use, unspecified, uncomplicated; Z87.891 Personal history of nicotine dependence
CPT/HCPCS: 94060; 94618; 94726; 94729

== ENCOUNTER 2025-02-13 07:42 | Outpatient (CLI) | payer MEDICARE, MEDICAID, SELFPAY ==
--- OUTSIDE RECORDS SUMMARY | 2025-02-13 07:44 | XMS_ITS | Clinical Summary ---
Author Organization [facility] Address [address] [place] [address] Care Team Providers Care Online Marketing Analyst Name Role Phone Greer Rodriguez MD Primary Care Provider + Elier Allred MD Unavailable [phone] Allergies Active Allergy Reactions Criticality Noted Date [...] atorvastatin (LIPITOR) 20 mg tablet 3 Active omeprazole (PriLOSEC) 20 mg capsule Take [...] 270 tablet 3 5 12/12/19 26 Active diazePAM (VALIUM) 5 mg tablet Take 1 tablet (5 mg total) by mouth nightly 30 tablet 5 5 07/31/20 25 Active diazePAM (VALIUM) 5 mg tablet Take 1 tablet (5 mg total) by mouth nightly 30 tablet 5 4 02/01/20 25 Discontinu ed(Reorder ) Active Problems Problem Noted Date Diagnosed Date Fatigue 07/08/2017 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 Encounters Date Type Department Care Team Description 02/12/2025 1:33 PM CDT - 02/12/2025 11:59 PM CDT Hospital Encounter [facility] [address] [place] [address] Malignant neoplasm of brainstem (HCC) Discharge Disposition: Discharge to home or self care 02/12/2025 Telephone [facility] Neurodiagnostics [address] [place] [phone] Brandy Nguyen 12/18/2024 Telephone [facility] Neurodiagn[facility] [address] [place] [phone] Chey Thompson 12/15/2024 Telephone [facility] Neurodiagnostics [address] [facility] [place] [address] Chey Thompson 12/11/2024 11:30 AM CDT Office Visit [facility] Epilepsy [address] [facility] 6th [place] [address] [place] [address] Mingo Nelson MD Seizure-like activity (HCC) (Primary [...] 11:31 AM CDT Height 167.6 cm (5' 6) 12/11/2024 11:31 AM CDT Body Mass Index [...] this topic Medical Devices Implanted Type Area Electron Beam Photo Mask Technician Device Identifier Shelf Expiration Date Model / Serial / Lot Titaneum Cranial Mesh/Plate/Scre ws Implanted:01/05 (Quantity not on file) Cranial Procedures Procedure Name Priority Date/Time Associated Diagnosis Comments MRI BRAIN W WO CONTRAST Schedule Routine, Read Routine (OP Routine) 02/12/2025 2:42 PM CDT Malignant neoplasm of brainstem (HCC) SCREENING MAMMOGRAM BILATERAL W CARL Schedule Routine, Read Routine (OP Routine) 11/28/2022 2:53 PM CDT Screening mammogram, encounter for from Last 3 Months or Most Recently Relevant to Health Maintenance Results * MRI Brain W WO Contrast (02/12/2025 2:42 PM CDT) Anatomical Region Laterality Modality Head and Neck N/A Magnetic Resonan ce 02/12/2025 3:29 PM CDT Impressions 02/12/2025 7:16 PM CDT Posttreatment changes of the brainstem without evidence of disease progression. Dictated by: Pipe Vidal MD The radiology attending physician has personally reviewed this study, and had reviewed and/or edited this written report and agrees with it. Electronically signed by: Danie Clark M.D. Narrative 02/12/2025 7:16 PM CDT EXAMINATION: Magnetic resonance imaging (MRI) of the brain and brainstem without and with contrast HISTORY: Brainstem glioma TECHNIQUE: Multiplanar multi-weighted MRI of the brain and brainstem was performed without and with intravenous contrast using the general brain protocol. Contrast information: 20 mL Gadoterate Meglumine IV COMPARISON: Multiple prior examinations, most recently 08/18/2024 FINDINGS: There are redemonstrated postsurgical changes of suboccipital craniotomy and brain stem lesion resection. Focal FLAIR hyperintensity in the right ventral medulla is unchanged from the prior examination and demonstrates no definite associated enhancement or increased cerebral blood volume. Right cerebellar encephalomalacia and diffuse cerebellar atrophy, right greater than left, likely related to post-treatment changes. The scalp and calvarium are normal. The superior sagittal sinus demonstrates normal venous flow. The corpus callosum is normal in shape and signal intensity. The pituitary and sella are normal. Diffusion weighted images reveal no hyperintensities to suggest acute cerebral infarction. The susceptibility weighted sequences reveal no evidence of acute or chronic hemorrhage. The ventricles are normal in size and position without evidence of hydrocephalus. The paranasal sinuses are normal. The visualized portions of the mastoids are unremarkable. Bilateral lens replacements. The orbits otherwise appear normal. Normal flow voids are demonstrated in the carotid arteries and basilar artery. There is no abnormal contrast enhancement. Procedure Note Danie Clark MD - 02/12/2025 EXAMINATION: Magnetic resonance imaging (MRI) of the brain and brainstem without and with contrast HISTORY: Brainstem glioma TECHNIQUE: Multiplanar multi-weighted MRI of the brain and brainstem was performed without and with intravenous contrast using the general brain protocol. Contrast information: 20 mL Gadoterate Meglumine IV COMPARISON: Multiple prior examinations, most recently 08/18/2024 FINDINGS: There are redemonstrated postsurgical changes of suboccipital craniotomy and brain stem lesion resection. Focal FLAIR hyperintensity in the right ventral medulla is unchanged from the prior examination and demonstrates no definite associated enhancement or increased cerebral blood volume. Right cerebellar encephalomalacia and diffuse cerebellar atrophy, right greater than left, likely related to post-treatment changes. The scalp and calvarium are normal. The superior sagittal sinus demonstrates normal venous flow. The corpus callosum is normal in shape and signal intensity. The pituitary and sella are normal. Diffusion weighted images reveal no hyperintensities to suggest acute cerebral infarction. The susceptibility weighted sequences reveal no evidence of acute or chronic hemorrhage. The ventricles are normal in size and position without evidence of hydrocephalus. The paranasal sinuses are normal. The visualized portions of the mastoids are unremarkable. Bilateral lens replacements. The orbits otherwise appear normal. Normal flow voids are demonstrated in the carotid arteries and basilar artery. There is no abnormal contrast enhancement. IMPRESSION: Posttreatment changes of the brainstem without evidence of disease progression. Dictated by: Pipe Vidal MD The radiology attending physician has personally reviewed this study, and had reviewed and/or edited this written report and agrees with it. Electronically signed by: Danie Clark M.D. Moises Castelan MD PhD IMG MRI PROCEDURES Final Result * Screening Mammogram Bilateral W Carl (11/28/2022 [...] Most Recently Relevant to Health Maintenance Insurance [facility] MEDICARE MEDICARE [facility] MEDICARE Care Teams Online Marketing Analyst Relationship Specialty Start Date End Date Greer Rodriguez MD PCP - General 05/04/17 Elier Allred MD [address] [facility] [address] [place] [address] [place] [address] Referring Physician Neurology 02/27/19
--- OUTSIDE RECORDS SUMMARY | 2025-02-13 07:44 | XMS_ITS | Encounter Summary ---
Author Organization [facility] Address [address] [place] [address] Phone Care Team Providers Care Credit Rating Inspector Name Role Phone Greer Rodriguez MD Primary Care Provider + Tea Miramontes MD Unavailable [phone] James Carrion MD PhD Unavailable Elier Allred MD Unavailable [phone] Encounter Details Date Type Department Care Team [...] on filedocumented in this encounter Care Teams Credit Rating Inspector Relationship Specialty Start Date End Date Greer Rodriguez MD PCP - General 05/04/17 Tea Miramontes MD [address], [place] [address] Radiation Oncologist Radiation Oncology 03/28/18 James Carrion MD PhD [address], [place] [address] Medical Oncologist/Protection Agent Medical Oncology 03/28/18 05/09/21 Elier Allred MD [address] [facility] [address] [address] Referring Physician Neurology 02/27/19 documented as of this encounter
--- OUTSIDE RECORDS SUMMARY | 2025-02-13 07:44 | XMS_ITS | Clinical Summary ---
Author Organization [facility] Address [address] [place] [address] Care Team Providers Care White Mixing Operator Name Role Phone Greer Rodriguez MD Primary Care Provider [phone] Source Comments [facility],non-owned Affiliates and Associated Physician Practices is amultiple site organization consisting of ambulatory clinics and hospital sitesin [place], [place], [place] and [place]. This disclosure is being madepursuant to the Care Everywhere program and may not contain all information available regarding this patient. Last updated 18.[facility] Active Problems Problem Noted Date Diagnosed [...] on file Legal Sex Female 5:41 PM ANALYTICS INTERN Gender Identity Not on file Sexual Orientation [...] 9:52 AM CDT Height 167.6 cm (5' 6) 01/08/2016 7:33 PM CDT Body Mass Index [...] y 1 & 2 Non-reacti ve Non-react [facility] [place][note 2] Comment: Neither HIV-1 p24 Antigen nor HIV-1/HIV-2 Antibodies are detected. Blood specimen (specimen) BLOOD SPECIMEN / Unknown 12/25/2015 3:23 PM CDT 12/25/2015 4:43 PM CDT Pb Clements MD LAB - HEMATOLOGY ORDERABLES Final Result Performing Organization Address [facility]/ZIP Co de Phone Number [address] [phone] * HEPATITIS SCREEN ACUTE (12/25/2015 3:23 PM CDT) Hepatitis A Virus Antibody IgM Non-react [facility] Hepatitis B Virus Surface Antigen Non-react [facility] Hepatitis B Core Virus Antibody IgM Non-react [facility] Hepatitis C Antibody Non-react [facility] Comment: Hepatitis C Antibody screen indicates no [...] LAB - CHEMISTRY ORDERABLES F inal Result [address] [phone] from Last 3 Months or Most Recently Relevant to Health Maintenance Insurance [facility] * Guarantor: BRUNA CARO Account Type Relation to Patient Date of Phone Billing Address Personal/Family [address] [place] [address] MEDICARE [place] - [place] * Guarantor: TORYBRUNA Account Type Relation to Patient Date of Phone Billing Address Personal/Family [address] [place] [address] MEDICARE Member Subscriber Plan / Payer (Ef fective for All Dates) Name:Bruna Caro Member ID:[id number] Relation to Subscriber:Self Name:Bruna Caro Subscriber ID:[id number] Payer ID:Not on file Group ID:Not on file Type:Medicare Address: [address] [id number] [place]ID - [place] * Guarantor: BRUNA CARO Account Type Relation to Patient Date of Phone Billing Address Personal/Family [address] [place] [address] MEDICARE [place]ID - [place] Advance Directives Documents on File Type Date Recorded Patient Capacity Management Specialist Expl anation Advance Directives and Livin g Will 01/06/2016 12:00 AM Care Teams White Mixing Operator Relationship Specialty Start Date End Date Greer Rodriguez MD [address] [place] [id number] PCP - General 01/13/16
--- OUTSIDE RECORDS SUMMARY | 2025-02-13 07:45 | XMS_ITS | Encounter Summary ---
Author Organization [facility] Address [address] [place] [address] Care Team Providers Care Power Plant Supervisor Name Role Phone Greer Rodriguez MD Primary Care Provider + Elier Allred MD Unavailable [phone] Encounter Details Date Type Department Care Team (Late st Contact Info) Description 02/12/2025 Telephone [facility] Neurodiagnostics [address] [place] [address] Brandy Nguyen Social History Tobacco Use Types Packs/Day Years Used Date Smoking Tobacco: Former Cigarettes 0.8 26.2 S tarted: 06/22/1998 Smokeless Tobacco: Never Comments Unknown Sex and Gender Information Value Date Recorded Sex Assigned at Not on file Legal Sex Female 8:31 AM CDT Gender Identity Female 04/10/2024 10:59 AM CDT Sexual Orientation Straight 03/06/2019 8: 15 AM CDT documented as of this encounter Miscellaneous Notes * Telephone Encounter - Brandy Nguyen - 02/12/2025 11:42 AM CDT Called to confirm VEEG for 02/21/25. Patient had a in her family and rescheduled for 04/10/25. documented in this encounter Plan of Treatment Not on file documented as of this encounter Visit Diagnoses Not on filedocumented in this encounter Care Teams Power Plant Supervisor Relationship Specialty Start Date End Date Greer Rodriguez MD PCP - General 05/04/17 Elier Allred MD [address] [address] [place] [address] [place] [address] Referring Physician Neurology 02/27/19 documented as of this encounter
--- OUTSIDE RECORDS SUMMARY | 2025-02-13 07:45 | XMS_ITS | Data Portability ---
Author Organization [facility] [email or web address], Main Office Address [address] [place] [address] Assessment No assessment recorded. Plan of Treatment Reminders Order Date Submit Date Provider Last Modified By Organization Details Last Modified Time Details Appointments None recorded. Lab None recorded. Referral None recorded. Procedures None recorded. Surgeries None recorded. Imaging None recorded. Medication Orders diazepam 5 mg tablet 2022 023 [facility][id number], [address] [facility], [place], [place], [id number], 11:50:42 Patient TargetsNo targets recorded. Patient Instructions Encounter Date Encounter Id Patient Instructions Last Modified By Organization Details Last Modified Time 11/12/2023 [id number] dementia rating scale-2* SRI Not available 11/12/2023 12:13:30 multi-dimensiona l health assessment questionnaire* SRI Not available 11/12/2023 12:14:08 care plan* SRI Not available 11/11 12:13:51 advance directiv es: care instructions Not available 11/12/2023 09:33:34 advance care planning: care instructions Not available 11/12/2023 09:33:34 [place] Advance Directives Not available 11/12/2023 09:33:34 Personalized [facility] Plan and Screening Recommendations Advance Directives - Do you have one? Yes Advance Directives - Do we have your advance directive on file in your health record? Primary Prevention/Interven tion (prevents or decreases the chance of common diseases from occurring) Smoking Risk: Smoker Continue to consider stopping smoking and call if we can assist you Alcohol Misuse Screening: Negative Weight: Overweight Physical activity: Need more exercise/physical activity Nutrition: Average Fall Risk (screened today): High Recommend regular use of cane or walker Vaccines Pneumococcal: not needed Influenza: declines Chronic Disease Risks Stroke: Low Risk Active diagnosis, Continue current treatment plan Heart Attack: Low risk Active diagnosis, Continue current treatment plan Clogging of the Arteries: Low risk Active diagnosis, Continue current treatment plan Diabetes: Low Risk Active diagnosis, Continue current treatment plan Secondary Prevention/Interven tion (detects treatable diseases before they may cause symptoms, disability, or ) Breast Cancer Screening with mammogram: Recommended today Cervical/Uterine/Ov fidelina Cancer Screening: Recommended today Osteoporosis Screening: No screening necessary Date Screening Last Performed: Colon Cancer Screening: No screening necessary Date Screening Last Performed: Eye Disease Screening: Recommended today Dementia Risk: Low Depression Screening: Negative Active diagnosis, Continue current treatment plan Not available 11/12/2023 09:30:33 Reason for Referral None Reported. Results Created Date Observation Date Name Description Value Unit Range Abnormal Flag Note LastModifiedBy Organization Detail LastModifiedTime 12/26/1912/25/2022 CT, face, w/ contr ast No observ ation record ed. [email or web address] [address], [address], 01/04/2023 14:03:10 08/31/20 24 08/31/2024 imagi ng/di agnos tic resul t No observ ation record ed. [address], [address], 08/31/2024 16:16:07 09/01/2008/31/2024 imagi ng/di agnos tic resul t No observ ation record ed. [address], [address], 09/01/2024 00:19:07 09/03/20 24 09/03/2024 imagi ng/di agnos tic resul t No observ ation record ed. [address], [address], 09/03/2024 15:15:05 10/16/19 25 10/16/2024 imagi ng/di agnos tic resul t No observ ation record ed. [facility] [address], [place], [address], 10/16/2024 16:40:05 02/07/20 25 01/25/2025 PFT, compl ete No observ ation record ed. [email or web address] [facility] [address], [place], [address], 02/06/2025 23:01:11 Result Notes None recorded. Problems Name Problem SNOMED Code Status Onset Date Resolution Date Notes Provider Name and Address Organization Details Recorded Time Benign essential hypertension 2765098 Active Not Available [facility] 3 00:53:41 Injury of ankle 309755121 Active Not Available [facility] 3 00:53:41 Neoplasm of brain 152676217 Active 2018 Not Available [facility] 3 00:53:41 Cellulitis 562547835 Active Not Available [facility] 3 00:53:41 Seizure disorder 644306297 Active 2021 Not Available [facility] 3 00:53:41 Computed tomography result abnormal 431993443 Active Not Available [facility] 3 00:53:41 Impacted cerumen 41263846 Active Not Available [facility] 3 00:53:41 Cobalamin deficiency 617168750 Active Not Available [facility] 3 00:53:41 Syncopal vertigo 507390106 Active Not Available [facility] 3 00:53:42 Gallstone 983161112 Active Not Available [facility] 3 00:53:42 Sore throat 835246519 Active Not Available [facility] 3 00:53:42 Knee pain Active Not Available [facility] 3 00:53:42 Vitamin D deficiency 89381669 Active Not Available [facility] 3 00:53:42 Migraine 42185235 Active Not Available [facility] 3 00:53:42 Anxiety 87176279 Active Not Available [facility] 3 00:53:42 Hyperlipidemi a 06011213 Active Not Available [facility] 3 00:53:42 Essential hypertension 23701317 Active Not Available [facility] 3 00:53:42 Weight gain 9110178 Active Not Available [facility] 3 00:53:42 Tooth disorder 128295357 Active [address], [place], [address] , [employer] 3 12:54:34 Staphylococcu s saprophyticus or Staphylococcu s hominis 906836023 Active 2022 [address], [address], [place], [address] , [employer] 3 17:57:13 Conjunctiviti s 8261567 Active 2022 [address], [address], [place], [address] , [employer] 3 16:33:52 Mammography abnormal 150800835 Active 2022 [address], [address], [place], [address] , [employer] [facility] 3 09:46:56 Edema of lower extremity 358620768 Active [address], [place], [address] , [employer] [facility] 3 14:16:50 Gastroesophag eal reflux disease without esophagitis 177270587 Active [address], [place], [address] , [employer] [facility] 3 14:17:07 Seizure 78649763 Active 2023 JAYLEN Mackay [address], [place], [address] , [employer] [facility] [email or web address] 4 17:04:26 Smoker 26443045 Active 2024 JAYLEN Payne [address], [place], [address] , [employer] [facility] [email or web address] 5 15:06:30 Problem Notes None recorded. Procedures Surgical History Date Name Laterality Status Provider Name and Address Organization Details Recorded Time 11/12/19 24 Medicare Wellness CPT Code, subsequent completed Eliane Sanchez RN [facility] [employer] [facility] 11/12/2023 09:13:29 Tonsillectomy completed Viviane Euceda MA [facility] 2024 11:56:51 Cholecystectomy completed Viviane Euceda MA [facility] [employer] [facility] 2024 11:56:57 Hysterectomy completed Viviane Euceda MA [facility] 2024 11:57:06 craniotomy completed Viviane Euceda MA [facility] 2024 11:57:19 Imaging Results None recorded. Procedure Notes None recorded. Medical Equipment None Reported. Allergies Allergen ID Allergen Name Allergen Category Reaction Reaction Severity Criticality Documentation Date Start Date Code Code System Note Provider Name and Address Organization Details Recorded Time 1321 Imitrex medicatio n chest pain Not available Not available 11/11/20222013 73875 3 RxNorm Not Available [facility] 3 01:02:08 1322 adhesive environme nt,medica tion Not available Not available Not available 11/11/2022 02941 UNK Not Available [facility] 3 01:02:08 Medications Name Sig Start Date [...] nicotine 14 mg/24 hr daily transdermal patch APPLY 1 PATCH TOPICALLY TO THE SKIN EVERY DAY active Not Available Not Available No t Available clindamycin HCl 300 mg capsule TAKE 1 [...] TAKE 1 TABLET BY MOUTH EVERY 4 TO 6 HOURS NEEDED active Not Available Not [...] 1 CAPSULE BY MOUTH EVERY DAY NEEDED active Not Available Not Available No t Available acetaminoph en 300 mg-codeine 60 mg tablet [...] Available Not Available Vitals Date Recorded Body height Body mass index (BMI) Body weight Body temperature Heart rate Oxygen saturation Oxygen saturation in Arterial blood by Pulse oximetry Systolic blood pressure Diastolic blood pressure Provider Name and Address Organization Details Last Updated DateTime 4 167.64 cm 45.5 kg/m2 390128. 05 g 95.7 [degF] 85 /min 97 % 97 % 122 mm[Hg] 78 mm[Hg] Eliane Sanchez RN [facility] 4 09:16:46 Date Recorded Body height Body mass index (BMI) Body weight Body temperature Heart rate Oxygen saturation Oxygen saturation in Arterial blood by Pulse oximetry Inhaled oxygen flow rate Systolic blood pressure Diastolic blood pressure Provider Name and Address Organization Details Last Updated DateTime 5 167.64 cm 46.5 kg/m2 508561. 6 g 96.6 [degF] 80 /min 95 % 95 % 2 L/min 140 mm[Hg] 90 mm[Hg] Viviane Euceda MA [facility] [email or web address] 5 11:49:01 Date Recorded Body height Body mass index (BMI) Body weight Body temperature Heart rate Oxygen saturation Oxygen saturation in Arterial blood by Pulse oximetry Systolic blood pressure Diastolic blood pressure Provider Name and Address Organization Details Last Updated DateTime 3 167.64 cm 43.9 kg/m2 149321. 12 g 96.3 [degF] 64 /min 96 % 96 % 158 mm[Hg] 82 mm[Hg] Liv Le RN [facility] [email or web address] 3 09:21:57 Date Recorded Body mass index (BMI) Body height Oxygen saturation Oxygen saturation in Arterial blood by Pulse oximetry Heart rate Body temperature Body weight Systolic blood pressure Diastolic blood pressure Provider Name and Address Organization Details Last Updated DateTime 2 42.8 kg/m2 167.64 cm 93 % 93 % 85 /min 97.5 [degF] 247503. 98 g 126 mm[Hg] 80 mm[Hg] Not Available [employer] 3 00:51:24 Social History Question Answer Notes LastModified by Organizat ion Details LastModified Time Tobacco Smoking Status Former Smoker Viviane Euceda MA [facility], [facility] [email or web address] 2024 11:55:45 What Is Your Level Of Caffeine Consumption? Heavy [id number] Information not available 11/11/2022 How Much Tobacco Do You Chew? None [id number] Information not available 11/11/2022 In The 14 [...] Type Of Diet Are You Following? REGULAR [id number] Information not available 11/11/2022 Which Illicit Or Recreational Drugs Have You Used? Marijuana Information not available 2024 Have There Been Any Changes To Your Family Or Social Situation? No Information not available 2024 When Did You Quit Smoking? 1-5yearssincelastc igarette Aug 2024 Information not available 2024 Do You Use Insect Repellent Routinely? No Information not available 2024 Where [facility] Information not available 2024 What Was The [...] Age Did You Start Smoking Tobacco? 17 [id number].[id number] Information not available 11/11/2022 Are You Passively Exposed To Smoke? No Information not available 2024 Are There Any Smokers In Your House? No Information not available 2024 How Much Tobacco Do You Smoke? 1 PPD MIGRATION.78397 37570 Information not available 11/11/2022 Do You Participate In Social Media? Yes Information not available 2024 Do You Use Sunscreen Routinely? Yes [id number].41487 21070 Information not available 11/11/2022 Have You Recently [...] used smokeless tobacco? Never used smokeless tobacco MIGRATION.[id number] 7477 Information not available 11/11/2022 Are you currently employed? No Information not available 2024 What is your occupation? Disability MIGRATION.[id number] Information not available 11/11/2022 Do you or have you ever used e-cigarettes or vape? Never used electronic cigarettes MIGRATION.[id number] Information not available 11/11/2022 What is your exercise level? Occasional MIGRATION.[id number] 5468 Information not available 11/11/2022 Mental Status Question Answer Note LastModified by Organization D etails LastModified Time Do you feel stressed (tense, restless, nervous, or anxious, or unable to sleep at night)? [id number] Information not available 2024 Family History Relationship Description Onset Age of this Age Resolved Age Notes LastModified by Organization Details LastModified Time Maternal Grandmother Family history of stroke 94 [id number] Not available 11/11/2022 00:48:00 Father Heart disease [email or web address] Not available 2024 11:54:15 Maternal Grandmother Blood coagulation disorder [email or web address] Not available 2024 11:54:43 Medical History No medical history recorded. Gynecological History Statement/Question Response How many live births 1 Date of Last Colonoscopy Most Recent Bone Density Date of LMP Menses Monthly Y Date of Last Pap Smear Current Control Method Hysterectom y Most Recent Mammogram Breast Problems no Discharge no Obstetrics History GPAL:G 4 P 1 0 3 1 Type Value Multiple Births 0 Full Term 1 Induced 0 Spontaneous 3 Premature 0 Living 1 Ectopics 0 Total 4 Immunizations Vaccine Type Date Status Note Provider Nam e and Address Organization Details Recorded Time Tdap 06/27/2014 completed Not Available [employer] 11/11/2022 01:02:00 Past Encounters Encounter ID Performer Location Encounter Start Date Encounter Closed Date Diagnosis/Indication Diagnosis SNOMED-CT Code Diagnosis ICD10 Code Diagnosis Note [id number] PEPE Tse [facility] [address] [address] 11/19/2020 00:00:00 11/19/2020 10:54:20 [id number] Greer Rodriguez MD [facility] [address] [address] 08/04/2021 00:00:00 08/04/2021 16:12:36 [id number] [address] [address] 01/13/2022 00:00:00 01/13/2022 20:00:56 [id number] Greer Rodriguez MD [address] [address] 08/18/2022 00:00:00 08/18/2022 17:32:25 [id number] PEPE Tse [address] [address] 03/02/2023 09:15:44 03/02/2023 09:55:10 Medication monitoring 492750096 Z51.81 Stable with current dose of diazepamPt denies any lending, selling, or borrowing of medication s. Continue to use sparingly. Reviewed controlled substance agreement requiremen ts. Refill given.Pt sees pain management for opioids.[place] PDMP checked todayWill be due for UDS next in-office visit.RTO 2-4 weeks for routine medcheck and f/u appt. 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 Continue with levetirace yarbrough and diazepam as directed. Mammography abnormal 168 922307 R92.8 New problemBi- Rads 3 (01/15/23-se e radiology note)Reass ured pt that diagnostic imaging report indicates there is most likely no malignancy . Encouraged pt to keep upcoming appt for repeat imaging in 6 months as directed. Essential hypertension 05815315 I10 Not well controlled Asymptomat ic at this timeElevat ion may be due, in part, to high caffeine intake (2+ cups coffee/day )Encourage d pt to increase water intake, reduce caffeine intake, exercise regularly, decrease/e liminate sodium intake, work on weight loss and stress reduction. Will continue to monitor closely.If still elevated at E, will start/gupta Your [employer]. [id number] Greer Rodriguez MD [facility] [address] [place] [address] 11/12/2023 09:07:17 11/12/2023 09:48:39 Adult health examination 364319472 Z00.00 -pt declines getting labs d/t already working with [facility] Screening for disorder 863323256 Z13.9 [id number] JAYLEN Mackay [facility] [address] [place] [address] 03/10/2024 16:08:51 03/10/2024 17:14:15 [id number] JAYLEN Payne [facility] [address] [place] [address] 2024 11:36:15 2024 12:17:59 Adult health examination 521218136 Z00.00 Discussed medication compliance and routine follow up.Discuss ed healthy diet and routine exercise.Jeyson coradowed vaccine records and made recommenda tions as needed.Enc ouraged annual eye and dental exams, as well as twice yearly dental cleanings. Benign ess ential hypertension 1735102 I10 140/90Disc ussed DASH diet. Gastroesop hageal reflux disease without esophagitis 469396769 K21.9 Well controlled at this time. Hyperlipidemia 64363036 E78.5 Neoplasm of brain 724719 004 D49.6 Continues to follow [facility] every 2 months. Body mass index 40+ - severely obese 873112525 Z68.42 Weight 288 poundsBMI: 46.5 Health Concerns Section Related Observation LastModified by Organization Detai ls LastModified Time None Recorded Concern Status LastModified by Organization Details LastModified Time None Recorded Advance Directives Directive None Recorded Payers Encounter Date Sequence Insurance Name Policy Number Policy Bryson Covered Member ID Bryson Member ID Guarantor Name 03/02/2023 1 [facility] (MEDICARE - MEDICAID REPLACEMENT HMO) [id number] Bruna M Vania [id number] Bruna M Vania 11/12/2023 1 [place] Bruna [place] [id number] Bruna Marinelli Vania 03/10/2024 1 [place] Bruna [place] [id number] Bruna Marinelli Vania 2024 1 [place] Bruna Caro [id number] Bruna Caro Notes Date Note Type Note Provider Name and Address Organization Details Recorded Time 03/02/2023 text/html 1. Pt in office for controlled medication check. Pt denies any problems or concerns with meds. Pt states she takes only as directed. Denies any lending, selling, or borrowing of medication.2. Pt states she has only been having seizures about 2-3x per month. Pt states seizures are better controlled when she is less stressed.3. Pt states mammogram in November showed areas of concern. States repeat imaging in December showed that the areas were probably ok. Tio Wakefield, MEDICAL TRANSLATOR [address] [facility], [facility] [address], [place], [address], [facility] [employer] 03/02/2023 16:48:14 11/12/2023 text/html Pt is here for medicare wellness JAYLEN Mackay [address], [place], [address], [email or web address] 11/12/2023 09:45:35 2024 text/html Patient is a 44 year old female that presents to the office to establish care. Patient was previously seeing Daniel Messina. [facility]- every 2 monthsPain Management- monthly 2L any [id number] restingnodules in lungs found last month---getting ready to do more testing [facility] [place]---had labs labs-orderedWWE- UTD (hysterectomy 2023--noncancer related)Mammogram- UTD (2023---follows [facility])Colonoscopy- orderedFlu- declinesCovid- initial dosesTdap- due Patient is a 44 year old female that presents to the office to establish care. Patient was previously seeing Daniel Messina. Patient continues to see specialist at [facility] every 2 months for follow up from brain tumor.Patient seens Pain Management monthly. Patient is on 2L NC with any activity. Patient reports recent scan found lung nodule-scheduled for more testing later this month. Patient was admitted to [facility] [place], had labs done at that time. Declines labs now. labs-declinesWWE- UTD (hysterectomy 2023--noncancer related)Mammogram- UTD (2023---follows [facility])Colonoscopy- orderedFlu- declinesCovid- initial dosesTdap- due PEPE Payne-C [address], [place], [address], [email or web address] 11/25/2024 19:58:40 OBGyn Episode No OBEpisode recorded.
--- OUTSIDE RECORDS SUMMARY | 2025-02-13 07:45 | XMS_ITS | Encounter Summary ---
Author Organization [facility] Healthcare Address [address] [place] [address] Care Team Providers Care Coil Wrapper Name Role Phone Greer Rodriguez MD Primary Care Provider + Elier Allred MD Unavailable [phone] Reason for Referral * Diagnostic Imaging (Routine) - Closed Specialty Diagnoses / Procedures Referred By Contac t Referred To Contact Radiology Diagnoses Malignant neoplasm of brainstem (HCC) Procedures MRI Brain W WO Contrast Moises Castelan MD PhD [address] [place] [id number] Phone: tel: fax: [address] [address] Referral ID Status Reason Start Date Expiration Date Visits Re quested Visits Authorized [id number] Closed 08/21/2024 09/20/2025 1 1 Reason for Visit * Diagnostic Imaging (Routine) - Closed Specialty Diagnoses / Procedures Referred By Contac t Referred To Contact Radiology Diagnoses Malignant neoplasm of brainstem (HCC) Procedures MRI Brain W WO Contrast Moises Castelan MD PhD [address] [place] [id number] Phone: tel: fax: [address] [phone] Referral ID Status Reason Start Date Expiration Date Visits Re quested Visits Authorized [id number] Closed 08/21/2024 09/20/2025 1 1 Encounter Details Date Type Department Care Team (Latest Contact Info) Description 02/12/2025 1:33 PM CDT - 02/12/2025 11:59 PM CDT Hospital Encounter [facility] [address] [id number] Malignant neoplasm of brainstem (HCC) Discharge Disposition: Discharge to home or self care Social History Tobacco Use Types Packs/Day Years Used Date Smoking Tobacco: Former Cigarettes 0.8 26.2 S tarted: 06/22/1998 Smokeless Tobacco: Never Comments Unknown Sex and Gender Information Value Date Recorded Sex Assigned at Not on file Legal Sex Female 8:31 AM CDT Gender Identity Female 04/10/2024 10:59 AM CDT Sexual Orientation Straight 03/06/2019 8: 15 AM CDT documented as of this encounter Medications at Time of Discharge albuterol HFA (PROVENTIL HFA,VENTOLIN HFA,PROAIR HFA) 90 mcg/actuation inhaler avg 2x a week atorvastatin (LIPITOR) 20 mg tablet 04/27/2023 diazePAM (VALIUM) 5 mg tablet Take 1 tablet (5 mg total) by mouth nightly 30 tablet 5 02/01/2025 07/31/2025 furosemide (LASIX) 20 mg tablet nightly Takes 2 tabs every night levETIRAcetam (KEPPRA) 1,000 mg tablet Take 1.5 tablets (1,500 mg total) by mouth 2 (two) times a day 270 tablet 3 12/11/2024 12/11/2025 metoprolol XL (TOPROL-XL) 100 mg 24 hr tablet TK 1 T PO QD 4 04/15/2019 metoprolol XL (TOPROL-XL) 200 mg 24 hr tablet TK 1 T PO QD 5 04/08/2018 Movantik 25 mg tablet Take 1 tablet (25 mg total) by mouth every morning 04/09/2021 naloxone (Narcan) 4 mg/actuation spray,non-aeroso l omeprazole (PriLOSEC) 20 mg capsule Take by mouth daily as needed 07/09/2024 omeprazole OTC (PriLOSEC OTC) 20 mg EC tablet daily ondansetron (ZOFRAN) 8 mg tabletIndication s:Malignant neoplasm of brainstem (HCC) TAKE 1 TABLET BY MOUTH EVERY 8 HOURS NEEDED FOR NAUSEA OR VOMITIMG RELATED TO BRAIN STEM TUMOR 30 tablet 11 09/04/2024 oxyCODONE (ROXICODONE) 10 mg tablet Take 1 tablet (10 mg total) by mouth every 4 (four) hours as needed oxyCODONE-acetam inophen (PERCOCET) 10-325 mg per tabletIndication s:Pain TK 1 T PO FID PRN P 0 02/09/2018 POTASSIUM CHLORIDE ER 20 mEq CR tablet 4 02/08/2018 sertraline (ZOLOFT) 100 mg tablet TK 1 T PO QD 4 03/22/2018 documented as of this encounter Discharge Disposition Disposition Code Departure Means Destination Discharge to home or self care documented in this encounter Plan of Treatment Not on file documented as of this encounter Procedures Procedure Name Priority Date/Time Associated Diagnosis Comments MRI BRAIN W WO CONTRAST Schedule Routine, Read Routine (OP Routine) 02/12/2025 2:42 PM CDT Malignant neoplasm of brainstem (HCC) documented in this encounter Results * MRI Brain W WO Contrast [...] MD PhD IMG MRI PROCEDURES Final Result documented in this encounter Visit Diagnoses Diagnosis Malignant neoplasm of brainstem (HCC) documented in this encounter Administered Medications Inactive Administered Medications - up to 3 most recent administrations Medication Order MAR Action Action Date Dose Rate Site gadoterate meglumine injection 20 mL 20 mL, intravenous, Once in imaging, contrast, Starting on 02/12/25 at 1442, For 1 dose Contrast Given 02/12/2025 2:43 PM CDT 20 mL documented in this encounter Orders Medications Ordered That Néstor ht Not Have Been Administered Count Last Ordered Date First Ordered Date gadoterate meglumine injection 20 mL 1 10/2024 documented in this encounter Care Teams Coil Wrapper Relationship Specialty Start Date End Date Greer Rodriguez MD PCP - General 05/04/17 Elire Allred MD [address] [facility] [address] [place] [address] [place] [id number] Referring Physician Neurology 02/27/19 documented as of this encounter
--- OUTSIDE RECORDS SUMMARY | 2025-02-13 07:45 | XMS_ITS | Referral Summary ---
Author Organization [facility] Address [address] [place] [address] Care Team Providers Care Physician Ophthalmologist Name Role Phone Greer Rodriguez MD Primary Care Provider + Elier Allred MD Unavailable [phone] Encounters Date Type Department Care Team Description 02/12/2025 Telephone [facility] Neurodiagnostics [address] [place] [address] Brandy Nguyen 02/12/2025 1:33 PM CDT - 02/12/2025 11:59 PM CDT Hospital Encounter [facility] [address] [place] [address] Malignant neoplasm of brainstem (HCC) Discharge Disposition: Discharge to home or self care 12/18/2024 Telephone [facility] [address] [place] [address] Chey Thompson 12/15/2024 Telephone [facility] [address] [place] [address] Chey Thompson 12/11/2024 11:30 AM CDT Office Visit [facility] Epilepsy [address] [facility] 6th [place] [address] [place] [id number] Mingo Nelson MD Seizure-like activity (HCC) (Primary [...] on file Medical Devices Implanted Type Area Supervisor [employer] Elements Device Identifier Shelf Expiration Date Model / [...] Most Recently Relevant to Health Maintenance Insurance [employer] MEDICARE [facility] Address: [address] [address] [place] [address] MEDICARE [facility] MEDICARE [facility] Address: [facility] [address] [place] [address] Care Teams Physician Ophthalmologist Relationship Specialty Start Date End Date Greer Rodriguez MD PCP - General 05/04/17 Elier Allred MD [address] [facility] [address] [address] Referring Physician Neurology 02/27/19
--- NOTE | 2025-02-21 19:52 | P.SLEEP_ITS ---
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 She is being tested for sleep apnea due to loud snoring, sleeping 4-5 hours a night, napping in the day, and insomnia. She has had uncomfortable feelings in her legs during the evenings for the last 7-8 years. She frequently awakens from sleep short of breath. She occasionally wakes at night with heartburn, belching or coughing.??She always snores,and this is constantly loud enough that others complain. She frequently has trouble sleeping when she has a cold. She occasionally wakes up gasping for breath during the night, reports that she has night terrors. She constantly has breathing problems at night. She frequently sweats excessively at night. She occasionally notices her heart pounding or beating irregularly during the night. She rarely falls asleep during the day. She never falls asleep involuntarily, never falls asleep while driving. She never experiences loss of muscle tone with strong emotion. She never feels paralyzed on waking or falling asleep. She occasionally experiences vivid dreams upon waking or falling asleep. She rarely feels afraid of going to sleep. She rarely has nightmares. She occasionally recalls her dreams. She constantly has thoughts racing through her mind. She never feels sad or depressed. She co nstantly feels anxiety. She occasionally notices parts of her body jerk. She rarely kicks during the night. She feels crawling or aching feelings in her legs. She occasionally feels leg pain at night. She occasionally has morning jaw pain, although she never grinds her teeth at night. She constantly feels bothered by pain during the day, is occasionally awakened by pain during the night. She rarely wakes up feeling stiff in the morning, occasionally wakes feeling sore or achy in the morning. She rarely awakens with pain in her neck, spine, or joints. She has memory problems and fatigue. She reports having seizures at night. Normal bedtime is between 3:00 a.m. and 5:00a.m., taking hours to fall asleep, waking multiple times during the night for no clear reason, spending long stretches of time trying to return to sleep. She wakes for the day between 8:00 a.m. and 10:00 a.m.. She keeps this same schedule throughout the week. She reports getting an average of 4 hours sleep per night. She takes naps in the afternoon or evening. A short nap is not refreshing. She feels better in the evening compared to other times of day. 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 She has subsequently had multiple episodes of radiation therapy. Her tumor did not respond to chemotherapy. She is followed by [facility]. Surgical History Surgical History History of hysterectomy for benign disease (12/2023) Without oophorectomy History of cholecystectomy History of tonsillectomy Family History Family History Grandparent , giving Pulmonary embolism affecting blood clot in leg, she and her baby during delivery Social History Social History Social History: The patient lives in a duplex. Her mother owns to duplex and lives on 1 side she and her son live on the other side. Her son is 22 years old. The patient smoked a pack per day since she was 17 years old. She quit smoking when she was admitted for pneumonia, Aug 31, 2024. She denies any history of alcohol use at all. She does smoke marijuana on a daily basis. She has been on disability since at least 2015 since she was diagnosed with a brains tem tumor. Code status: Full code (patient does have a living will) Surrogate decision maker: Mother Smoking packs per day: 1 Smoking cigarettes per day: 20.0 Years smoked: 27 Smoking pack-years: 27.00 Smoking status: Former smoker (smokes weed daily, sees pain doctor) Substance use: current Substance use type: marijuana Do You Feel Safe in your Home?: Yes Lack of Transportation: No Lack of Food: Never True Current Housing: I Have Housing Concerned About Future Housing: No Difficulty Paying Gas/Electric Bills: No Difficulty Paying for Meds: No Currently Unemployed: No Education: Decline to Answer Difficulty w/ Childcare or Family Care: No Living arrangements: with family Additional living arrangements comments: SON Gender identity (if verbalized by the patient): Female Spiritual care concerns: No Medications Home Medications ?Medication ?Instructions ?Recorded ?Confirmed ?Type albuterol sulfate 90 mcg/actuation 2 inh inhalation Q4-6H PRN 11/27/19 11/07/24 History aerosol inhaler (Ventolin HFA) Shortness Of Breath diazepam 5 mg tablet 10 mg PO HS 11/27/19 11/07/24 History furosemide 20 mg tablet 40 mg PO HS 11/27/19 11/07/24 History omeprazole 20 mg capsule,delayed 20 mg PO HS 11/27/19 11/07/24 History release ondansetron HCl 8 mg tablet 8 mg PO Q8H PRN Nausea 11/27/19 11/07/24 History sertraline 100 mg tablet 100 mg PO HS 11/27/19 11/07/24 History levetiracetam 500 mg tablet 1,500 mg PO BID 02/06/20 11/07/24 History metoprolol succinate 100 mg 100 mg PO HS 02/06/20 11/07/24 History tablet,extended release 24 hr atorvastatin 20 mg tablet 20 mg PO HS 01/04/24 11/07/24 History metoprolol succinate 200 mg 200 mg PO DAILY 01/04/24 11/07/24 History tablet,extended release 24 hr naloxegol 25 mg tablet (Movantik) 25 mg PO HS 01/04/24 11/07/24 History oxycodone-acetaminophen 10 mg-325 1 tablet PO Q4-6H PRN Pain 01/04/24 11/07/24 History mg tablet promethazine 50 mg tablet 50 mg PO Q6H PRN Nausea 01/04/24 11/07/24 History nicotine 14 mg/24 hr daily 1 patch transdermal DAILY #28 ea 09/07/24 11/07/24 Rx transdermal patch Sleep Procedure A full night polysomnogram using the [employer] multi-channel system recorded the standard physiologic parameters including EEG, EOG, submentalis EMG, anterior tibialis EMG, EKG, body position, nasal and oral airflow using nasal pressure sensor and thermistor. Respiratory parameters of chest and abdominal movements were recorded with Respiratory Inductance Plethysmography belts. Oxygen saturation was recorded by pulse oximetry. Video monitoring was also performed. Sleep stages, periodic limb movements, and EEG arousals were scored in 30 second epochs according to the criteria of the AASM Scoring Manual. The Apnea-Hypopnea Index was calculated using CMS guidelines for definition of hypopnea while scoring respiratory events. She arrived at the sleep lab without supplemental O2, saturation was between 91% to 97% while awake. She stated that she uses O2 at home @ 2L/minute. She decided to end the study at 2:09 a.m. due to pain and anxiety. Sleep Architecture The total recording time was 216.2 minutes. The total sleep time was 107.0 minutes. Sleep latency was 17.8 minutes. She had no REM. Sleep efficiency was 49.5%. The patient had 26 awakenings for an awakening index of 14.6. Wake after sleep onset time was 91.0 minutes. The patient spent 49.5 minutes, 46.3% of total sleep time in Stage N1. The patient spent 57.5 minutes, 53.7% in Stage N2. The patient spent no sleep time in Stage N3 or Stage REM sleep. Respiratory Analysis The patient had 53 hypopneas, 6 obstructive apneas, 1 mixed apnea, and no central apneas for an overall Apnea Hypopnea Index of 33.6. There was no REM. The NREM Apnea Hypopnea Index was 33.6. The patient had a Central Apnea Hypopnea Index of 0. There were no Respiratory Effort Related Arousals. The Respiratory Disturbance Index is 33.6 events per hour. There was no evidence of Morales- Mora Respirations. Arousals There were 119 total arousals for an arousal index of 66.7. There were 86 spontaneous arousals for an index of 48.2. There were 20 arousals due to respiratory events for an index of 11.2. There were 8 arousals due to periodic limb movements for an index of 4.5. There were 5 arousals due to isolated limb movements for an index of 2.8. Periodic Limb Movements The patient had 7 isolated limb movements with an index of 3.9. The patient had 90 periodic limb movements with an index of 50.5. Patient had a total of 97 limb movements with a total limb movement index of 54.4. Oximetry Data The patient had an average oxygen saturation of 91.9% in sleep with a minimum oxygen saturation of 84% and a maximum oxygen saturation of 97%. The patient had 90 oxygen desaturations that were 4% or greater resulting in an Oxygen Desaturation Index of 50.5. The patient spent 9.7 minutes, 4.5% of total sleep time with an oxygen saturation below 88%. Snoring Profile Snoring was moderate. Cardiac Profile The EKG showed normal sinus rhythm, average pulse rate of 56.6 bpm with a minimum pulse of rate of 44 bpm and a maximum pulse rate of 82 bpm. No arrhythmias noted. EEG Profile Unremarkable, no evidence of seizures. Assessment and Plan Assessment and Plan (1) Obstructive sleep apnea: Code(s): G47.33 - Obstructive sleep apnea (adult) (pediatric) Status: Acute Assessment and Plan: This basic nocturnal polysomnogram on 02/13/2025 shows severe obstructive sleep apnea with an apnea hypopnea index of 33.6, desaturation to 84% and moderate snoring. The patient left the sleep lab before 4 hours of recording time occurred. The data supports the diagnosis of severe sleep apnea. Events were more severe in the non supine position, AHI 40.3 non supine compared to 21.1 in supine sleep. This was not an ideal study due to the low sleep efficiency 49.5% and pain during the night that contributed to her decision to leave the sleep lab against medical advice. She left AMA after 2:00 am due to pain, feeling anxious, and not being able to return to sleep. She did not proceed with the CPAP portion of the study. I recommend a full night titration for her severe obstructive sleep apnea. AutoPAP may not be effective given the severity. She had no REM on this study. The lack of REM may have led to underestimation of severity of her condition. She needs an in-lab titration to treat her apnea in all stages of sleep and in all body positions. (2) Restless legs syndrome (RLS): Code(s): G25.81 - Restless legs syndrome Status: Acute Assessment and Plan: She had an elevated number of periodic limb movements however these were associated with arousals. Her periodic limb movement index was 50.5. She has had complaints of uncomfortable feelings in her legs for years. She meets criteria for restless legs syndrome. Ferritin level is indicated to exclude iron deficiency anemia as a contributing factor. Ferritin should be 75 ng/mL or greater. If ferritin is below this, iron supplementation should be given to achieve ferritin of 75 ng/mL. There are nonpharmacologic methods to treat limb movements including daily exercise, stretching calf muscles before bed, avoiding excessive amounts of caffeine and alcohol, vitamin B supplementation, magnesium lotion massaged into legs before bed, and use of a weighted blanket. Pharmacologic therapy is very effective for restless legs syndrome and limb movements during sleep and may include [id number] voltage-gated calcium channel ligands such as gabapentin which is preferable to dopaminergic agents which can have augmentation. Treating restless legs can improve ability to fall asleep and stay asleep. This may allow her to adhere to better sleep hygiene measures, improving the quality of sleep overall. Data The data obtained during this sleep study is adequate for interpretation. The patient left the sleep lab before 4 hours of recording time occurred. The data supports the diagnosis of severe sleep apnea detailed above. Certification This sleep study has been reviewed by a board certified sleep medicine physician.
[2025-02-28 04:23] VITALS: BMI 45.6
== END 2025-02-14 04:35 | disposition home or self-care (01) ==
LOC: ANHCSM 07:43
PROVIDERS: PCP Nurse Practitioner Family; Visit Provider Internal Medicine Critical Care Medicine
DX: G47.9 Sleep disorder, unspecified (principal); G47.33 Obstructive sleep apnea (adult) (pediatric); G25.81 Restless legs syndrome
CPT/HCPCS: 95810

== ENCOUNTER 2025-03-05 14:00 | Outpatient (CLI) | payer MEDICARE, MEDICAID, SELFPAY ==
--- NOTE | ~2025-03-05 | CT_ITS ---
CT Scan of the Chest without Contrast: Clinical Indication: Nonspecific abnormal finding of lung field Technique: Contiguous sections were acquired throughout the chest without intravenous contrast. Dose reduction technique was used on this scan by utilizing automated exposure control and iterative recon struction technique. The dose-length product (DLP) was 726.20 mGy-cm. COMPARISON: 08/31/2024 Findings: There is no evidence of any significant mediastinal, hilar or axillary lymphadenopathy. The mediastin al soft tissues appear normal. There is no evidence of pleural or pericardial effusion. Stable 4 mm nodule along the right minor fissure. Stable right lower lobe pulmonary nodules (axial im ages 55, 58, 67, 70, 74). Previously noted patchy groundglass opacities are resolved. Images through the upper abdomen reveal diffuse hepatic steatosis. Impression: Multiple subcentimeter pulmonary nodules are unchanged. Interval resolution of patchy groundglass opacities throughout both lungs. Reviewed, dictated and finalized at [facility]. Impression: Multiple subcentimeter pulmonary nodules are unchanged. Interval resolution of patchy groundglass opacities throughout both lungs.
== END 2025-03-05 14:01 | disposition home or self-care (01) ==
PROVIDERS: PCP Internal Medicine Critical Care Medicine; Visit Provider Internal Medicine Critical Care Medicine
DX: R91.8 Other nonspecific abnormal finding of lung field (principal)
CPT/HCPCS: 71250